=== PATIENT | female | born 1960 | race Caucasian/White ===

== ENCOUNTER → 2020-08-24 10:25 | Outpatient (CLI) | payer OTHER, SELFPAY ==
--- NOTE | ~2020-08-24 | CT_ITS ---
EXAMINATION: CT abdomen pelvis wo con EXAM DATE: 08/24/2020 10:43 INDICATION: K43.0 - Incisional hernia with obstruction, without gangrene . Tenderness head mass. Hype rtension. TECHNIQUE: Spiral CT of the abdomen and pelvis was performed without contrast. Axial, coronal and s agittal images of the abdomen and pelvis were reviewed. The dose-length product (DLP) for this exami nation was 1024.94 mGy-cm. The exposure was tailored according to patient size (auto mA exposure con trol), and iterative reconstruction (ASIR) was used as additional dose reduction technique. Compariso n is made to prior examination from 01/29/2017. FINDINGS: There is bilobulated left periumbilical hernia with the larger inferior lobulation having a defect in the abdominal wall measuring 2.8 cm, and lobulated portion measuring 9 cm in diameter, adam row mouth for size of herniated omental fat. The more cephalad lobulation measures about 5 cm. Mild f at stranding within this. Compared to 2017, size of these hernias has increased, and the edema/fat st randing has developed. The liver, spleen, adrenal glands and pancreas are unremarkable. Large gallstone measuring 2.4 x 5.3 cm. No adjacent pericholecystic inflammation. There is no nephrolithiasis or hydronephrosis. The uterus is anteverted and morphologically normal. The bladder is undistended at time of imaging. Th ere is no retroperitoneal or pelvic lymphadenopathy. There is mild scattered arteriosclerotic disea se. The appendix is normal. The stomach and small bowel are unremarkable. Small duodenal diverticulum. T here is expected amount of colonic stool. No free intraperitoneal gas. There is mild cardiomegaly . The lung bases are unremarkable. There are no osteoblastic or osteolytic lesions identified. L2-3 moderate to severe disc disease. IMPRESSION: 1. Sizable left periumbilical fat-containing bilobulated hernias with mild edema. 2. Cholelithiasis. Reviewed, dictated and finalized at location B. IMPRESSION: 1. Sizable left periumbilical fat-containing bilobulated hernias with mild sara ma. 2. Cholelithiasis.
== END ==
PROVIDERS: Visit Provider Surgery
DX: K43.0 Incisional hernia with obstruction, without gangrene (principal); K80.20 Calculus of gallbladder without cholecystitis without obstruction; K42.0 Umbilical hernia with obstruction, without gangrene
CPT/HCPCS: 74176

== ENCOUNTER → 2020-10-16 00:58 | Outpatient (CLI) | payer OTHER, SELFPAY ==
[2020-10-16 21:26] LABS: SARS-CoV-2 RNA PCR Negative
== END ==
PROVIDERS: Visit Provider Surgery
DX: Z01.812 Encounter for preprocedural laboratory examination (principal); Z20.822 Contact with and (suspected) exposure to COVID-19
CPT/HCPCS: C9803; U0003; U0005

== ENCOUNTER 2020-10-16 09:23 | Outpatient (CLI) | payer OTHER, SELFPAY ==
--- NOTE | 2020-10-16 09:31 | ECG_ITS ---
Measurements Intervals [place] Rate: 58 P: 75 NH: 164 QRS: 16 QRSD: 93 T: -9 QT: 436 QTc: 431 Interpretive Statements SINUS BRADYCARDIA BORDERLINE ST-T WAVE ABNORMALITY- DIFFUSE LEADS BASELINE WANDER- V4-V5 BORDERLINE ECG Electronically Signed On 10-16-2020 16:46:03 CDT by Ozzie Rodriguez D.O.
== END 2020-10-16 09:24 | disposition home or self-care (01) ==
PROVIDERS: Visit Provider Anesthesiology
DX: Z20.810 Contact with and (suspected) exposure to anthrax (principal); I10 Essential (primary) hypertension
CPT/HCPCS: 93005

== ENCOUNTER 2020-10-21 16:36 | Observation (INO) | payer OTHER, SELFPAY ==
[2020-10-15 17:10] VITALS: BMI 35.6
[2020-10-20] VITALS (18 sets, daily range): BP systolic 106–150; BP diastolic 58–86; PULSE 52–78; RESP 16–20; TEMP 36.2–37.2; O2SAT 91–100
--- NOTE | 2020-10-20 06:34 | PM.IMHP ---
H&P: HPI History of Present Illness Date/Time: 10/20/20 06:34 Chief Complaint: Recurrent ventral hernia Narrative: patient is a 60-year-old woman who had an umbilical hernia repaired with mesh in 2004 at [facility]. This recurred for at least the last 4 years. She has been seen in the office and had a recent CT scan. This shows a sizable ventral hernia with a 5 cm defect. It has been increasingly symptomatic for her and I was unable to reduce it in the office due to discomfort. She is taken to surgery now for laparoscopic repair of recurrent ventral hernia. Review of Systems Review of Systems: All systems reviewed & are unremarkable except as noted in HPI and below ( HPI and those items noted below.) Constitutional: Constitutional: Denies chills and Denies fever(s) Cardiovascular: Cardiovascular: Denies chest pain, Denies diaphoresis, Denies dyspnea and Denies paroxysmal nocturnal dyspnea Respiratory: Respiratory: Denies chest congestion, Denies cough and Denies dyspnea Integumentary/Breasts: Skin/Breast: Denies lesions and Denies rash PMFSH Past Medical History Medical History Brain bleed Hypertension Surgical History Surgical History H/O umbilical hernia repair S/P S/P excision of lipoma S/P knee replacement Family History Family History Father Diabetes mellitus Mother Macular degeneration Sibling Thyroid disease Grandparent Lung cancer Other Cerebrovascular accident Hypertension Social History Social History Smoking status: Never smoker Alcohol intake: never Substance use: never Living arrangements: with family Gender identity (if verbalized by the patient): Female Sexual Orientation (if Verbalized by the Patient): Straight or Heterosexual Spiritual care concerns: No Meds Home Medications and Allergies Home Medications Medication Instructions Recorded Confirmed Type diltiazem HCl 300 mg 300 mg PO DAILY 08/04/20 10/15/20 History capsule,extended release 24 hr Allergies Allergy/AdvReac Type Severity Reaction Status Date / Time Sulfa (Sulfonamide Allergy Severe REACTION Verified 09/06/20 09:00 Antibiotics) CHILD----SEVERE SWELLING AND RASH latex Allergy Intermediate rash Verified 09/06/20 09:00 sulfanilamide Allergy Mild Swelling Verified 09/06/20 09:00 Sulfonamides Allergy Intermediate anaphylaxis Uncoded 08/16/20 09:28 Exam Const: General: comfortable, no acute distress, alert and awake HENMT: Head: normocephalic and atraumatic Mouth: Yes Normal oral and palatal mucosa present Eyes: Conjunctivae: conjunctivae normal Pupils: Equal, round and reactive pupils present EOM: EOMs intact bilaterally Neck: Neck: normal visual inspection, no lymphadenopathy and nontender Resp: Effort & Inspection: normal respiratory effort Auscultation: clear to auscultation bilaterally Cardio: Rate: regular rate Rhythm: regular rhythm Heart sounds: no gallops, no murmurs and no rubs GI: Inspection: non-distended, incision ( Lower abdominal midline scar from ), obesity and visible herniation ( Just below umbilicus with most of the herniation to the left. Tender.) GI Palp: Yes Soft to palpation, No Tenderness to palpation present (GI), No Hepatomegaly present, No Splenomegaly present and Yes Hernia present ( tender ventral hernia, unable to reduce. Larger on the left than right) Auscultation: normal bowel sounds Skin: Lesions: no lesions Rashes: no rashes Neuro: General: no focal motor deficits and CN's II-XI intact bilaterally Cranial nerves: Yes Equal, round and reactive pupils present, Yes Bilaterally intact EOM present, Yes facial symmetry and Yes Midline tongue present Speech: normal speech Motor e
--- NOTE | 2020-10-20 06:40 | WPDHPUPDATE1 ---
History and Physical Update Update Date/Time: 10/20/20 06:40 History and Physical has been reviewed, including an updated exam of the patient. There are NO changes in the patient's condition. Risks, benefits, and alternatives have been discussed and questions answered. Patient agrees to proceed with procedure.
[2020-10-20] MEDS: ACETAMINOPHEN 500 MG TABLET 1000 MG PO (09:29)
[2020-10-20] MEDS: LACTATED RINGERS 1,000 ML 30 ML IV CONT ×2 (09:35→12:27)
--- NOTE | 2020-10-20 09:35 | WPDANESEPPF ---
Anes - Initial Pre Proc Eval Procedure: Operation Date: 10/20/20 10:00 Proposed Procedures p Laparoscopic Repair Recurrent Ventral Hernia - Ashvin Wu MD Date/Time: 10/20/20 09:35 Surgeon: Ashvin Wu MD Pre Op Diagnosis: recurrent vental hernia Patient Data Age: 60 Gender: F Height: 1.68 m Weight: 100 kg Allergies Allergy/AdvReac Type Severity Reaction Status Date / Time Sulfa (Sulfonamide Allergy Severe REACTION Verified 10/20/20 08:21 Antibiotics) CHILD----SEVERE SWELLING AND RASH sulfanilamide Allergy Mild Swelling Verified 10/20/20 08:21 latex AdvReac Intermediate BLISTERS Verified 10/20/20 08:21 UPON CONTACT Sulfonamides Allergy Intermediate anaphylaxis Uncoded 10/20/20 08:21 Home Medications Medication Instructions Recorded Confirmed Type diltiazem HCl 300 mg 300 mg PO DAILY 08/04/20 10/20/20 History capsule,extended release 24 hr Patient hx anesthesia problems: post op nausea/vomiting Family hx anesthesia problems: none PMFSH Past Medical History Medical History Anxiety Brain bleed Hypertension Rheumatoid arthritis Surgical History Surgical History H/O umbilical hernia repair S/P S/P excision of lipoma S/P knee replacement Family History Family History Father Diabetes mellitus Mother Macular degeneration Sibling Thyroid disease Grandparent Lung cancer Other Cerebrovascular accident Hypertension Social History Social History Smoking status: Never smoker Alcohol intake: never Substance use: never Living arrangements: with family Gender identity (if verbalized by the patient): Female Sexual Orientation (if Verbalized by the Patient): Straight or Heterosexual Spiritual care concerns: No Anes - Eval Final PreProcedure Day of Procedure 10/20/20 09:35 Patient weight: obese Heart: regular rate and rhythm Lungs: clear to auscultation Airway: Mallampati scale class II Neurological: alert and oriented Last oral intake: >/= 8 hours ASA classification: III Emergent: no Anesthetic plan: proceed Anesthesia type and monitoring: general ETT and standard monitoring Informed Consent: The patient's anesthetic plan and its attendant risks and benefits were discussed with the patient/family/POA. Questions were solicited and answers provided to the satisfaction of the patient/family/POA.
[2020-10-20] MEDS: KETOROLAC 15 MG/ML VIAL (*BKC) IV PUSH (09:36)
[2020-10-20] MEDS: SCOPOLAMINE 1.5 MG PATCH TRANSDERM (09:44)
[2020-10-20] MEDS: MIDAZOLAM HCL (*CRX) 2 MG/2 ML VIAL IV PUSH (09:50)
[2020-10-20] MEDS: ceFAZolin 2 GM/D5W 50 ML 2 GM/50 ML BAG IVPB (10:09)
[2020-10-20] MEDS: BUPIVACAINE/EPINEPHRINE 0.5% 10 ML VIAL 30 ML INFILTRATE (10:45)
--- NOTE | 2020-10-20 12:19 | W.PM.PROC2 ---
Procedure Note - Detailed Date of Procedure 10/20/20 Pre-op Diagnosis recurrent vental hernia Post-op Diagnosis same Procedure Performed Laparoscopic repair recurrent ventral hernia with 20 x 15 Symbotex mesh Surgeon Ashvin Wu MD Staff Therapist Marichuy QUINONES TEMPLATE MAKER, Isabel VIDALA Anesthesia general and local (0.5% Marcaine with epinephrine) Indications Patient had umbilical hernia repair in 2004 in an outside hospital. She has had a recurrence for quite some time, at least since 2017. This is gotten larger and more symptomatic. She is taken to surgery now for repair of a ventral hernia that is recurrent. Findings Omentum was chronically incarcerated in the hernia sac. The defect measured 5 cm in craniocaudad dimension and 3 cm in lateral dimension. 15 x 20 cm Symbotex mesh was used for repair oriented in the craniocaudad dimension. Description of Procedure The patient was taken to surgery and induced into general anesthesia. The abdomen was prepped and draped. First trocar was placed under the left costal margin laterally a. This was a 5 mm applied Medical optical trocar. Insufflation was carried out and the camera was placed. We then placed another 5 mm port in the left mid abdomen and a 10 11 port in the left lower quadrant. Later in the surgery 2 5 mm ports were placed on the right side of the abdomen. The hernia was easily found and had omentum stuck in the hernia defect. Using a combination of blunt sharp dissection as well as some cautery, I was able to reduce the herniated omentum completely. I then inserted a ruler and measured the defect with findings as above. We stopped insufflation and then marked the edges of the hernia using a needle and a marking pen. I then chose a 15 x 20 cm Symbotex mesh and placed this symmetrically over the defect marking the outer perimeter. I also marked the anticipated location of the 4 transfascial sutures. To 0 [place]-Angel suture was then used to make 4 transfascial sutures at the snf point along each side of the mesh. The mesh was then rolled and inserted into the abdominal cavity. It was unrolled and oriented appropriately. I then used the CardioKinetix suture pass device and passed the caudal transfascial suture 1st. The right lateral transfascial suture was next. The cranial transfascial suture and then finally the left lateral transfascial sutures were all placed. On checking the position, I did have to reposition the caudal transfascial suture. After this was done, the mesh looked to be in good position with no undue stress on the transfascial sutures. I tied down the sutures. I then used the secure strap stapling device to tack the mesh in position. These tacks are absorbable. It was at this point that we placed the 2 right-sided 5 mm ports under direct visualization. I tacked the mesh in position with a secure row that was closer to the hernia defect. An outer row near the edge of the mesh was then placed. The mesh lay quite flat and in good position. It appeared to have at least 5 cm overlap in all directions. I then suctioned away some blood that had collected in the pelvis from taking down the adhesions. All looked quite good. We closed the 10 11 port of the fascial level with an 0 Vicryl suture using the Mario cone and granny suture pass device. We evacuated CO2 and removed the trocar sleeves. Skin wounds were closed with subcuticular 4-0 Monocryl skin suture. The transfascial sutures sites work closed with Exofin adhesive. The trocar sites were dressed with Exofin adhesive. An abdominal binder was placed. The patient was awakened and taken to recovery in good condition. Sponge and needle counts were correct x2. Estimated Blood Loss 30 Drains No Packing No Pathology none sent Complications None Condition stable Disposition PACU
[2020-10-20] MEDS: ONDANSETRON INJ 4 MG/2 ML VIAL IV PUSH (12:50)
--- NOTE | 2020-10-20 13:55 | SUR.PHASEI ---
[id number]- Call to Dr. Haddad patient complaining of nausea and wretching at this time. Per Dr. Haddad place orders and administer 25MG Benadryl IVP.
[2020-10-20] MEDS: diphenhydrAMINE HCl INJ 50 MG/ML VIAL 25 MG IV PUSH (13:57)
[2020-10-20] MEDS: LACTATED RINGERS 1,000 ML 100 ML IV CONT (16:04)
[2020-10-20] MEDS: IBUPROFEN IV 800 MG/200 ML 800 MG/200 ML BAG 400 MG IVPB ×2 (16:05→21:32)
[2020-10-20] MEDS: SENNA/DOCUSATE SODIUM TABLET 2 TAB PO (20:15)
[2020-10-20] MEDS: ENOXAPARIN 30 MG/0.3 ML SYRINGE SUB-Q (20:15)
[2020-10-21] MEDS: HYDROcodone/acetaminophen (*CRX) 10-325 MG TABLET 1 TAB PO (00:42)
[2020-10-21] MEDS: MORPHINE SULFATE (*CRX) 2 MG/ML INJ IV PUSH (03:09)
[2020-10-21] MEDS: IBUPROFEN IV 800 MG/200 ML 800 MG/200 ML BAG 400 MG IVPB ×4 (04:00→20:57)
[2020-10-21 04:21] VITALS: BP 109/58; PULSE 68; RESP 16; TEMP 36.3; O2SAT 93
[2020-10-21 06:12] LABS: Hematocrit 27.2 % (37.0-47.0); Hemoglobin 9.3 g/dL (12.0-15.0); Mean Corpuscular HGB Conc 34.2 g/dl (32-36); Mean Corpuscular Hemoglobin 31.2 pg (26-34); Mean Corpuscular Volume 91.3 fl (80-100); Mean Platelet Volume 9.6 fl (7.4-10.4); Platelet Count Result 268 k/mm3 (150-375); Red Blood Count 2.98 M/mm3 (4.2-5.4); Red Cell Distribution Width 12.6 % (11.5-14.5); White Blood Count 14.3 K/mm3 (4.5-10.0)
[2020-10-21 06:22] LABS: Anion Gap 6 mmol/L (8-16); Blood Urea Nitrogen 16 mg/dL (7-17); Calcium 8.6 mg/dL (8.4-10.2); Carbon Dioxide 27 mmol/L (22-30); Chloride 102 mmol/L (98-107); Estimated CRCL calculation 62 ml/min; Estimated Glomerular Filt Rate 56; Glucose 151 mg/dL (65-110); Potassium 3.5 mmol/L (3.4-5.0); Sodium 135 mmol/L (137-145)
[2020-10-21] MEDS: ENOXAPARIN 30 MG/0.3 ML SYRINGE SUB-Q ×2 (08:35→20:54)
[2020-10-21] MEDS: polyethylene glycoL 3350 17 GM POWD.PACK PO (08:38)
[2020-10-21] MEDS: PHENOL/SOD PHENO SPRAY CHERRY (*BKC) 1 SPRAY MUCOUS MEM (10:13)
[2020-10-21 16:00] VITALS: BP 110/60; PULSE 66; RESP 16; TEMP 36.3; O2SAT 94
--- NOTE | 2020-10-21 16:23 | PM.PNGS ---
Progress Note: A&P Assessment and Plan (1) Recurrent ventral hernia with obstruction: Code(s): K43.0 - Incisional hernia with obstruction, without gangrene Status: Chronic Assessment and Plan: POD1 and doing well. Pain is well-controlled and she is tolerating a diet. She is still feeling weak and has not been up much. Will start increasing her activity and get her up and ambulating today. Hopefully, if she continues to improve, she could potentially be discharged tomorrow. (2) Hypertension: Qualifiers: Hypertension type: essential hypertension Qualified Code(s): I10 - Essential (primary) hypertension Code(s): I10 - Essential (primary) hypertension Status: Chronic Additional Plan I have discussed the plan of care with Dr. Wu. Subjective Subjective Date/Time Seen: 10/21/20 15:23 Post Op day: 1 Patient reports: tolerating a regular diet, flatus, no bowel movement and afebrile Interval history: Patient seen this afternoon lying in bed and doing well. She was sleeping upon entering and was easily arousable. She reports pain has been well-controlled all day, but also has not gotten out of bed since last night. She says she was a little unsteady when getting up to the chair last night and has rested all day today in bed. She is tolerating her diet. No other complaints at this time. Review of Systems Review of Systems: All systems reviewed & are unremarkable except as noted in HPI and below Constitutional: Constitutional: Reports as per HPI, Reports no additional constitutional complaints, Denies chills and Denies fever(s) Cardiovascular: Cardiovascular: Reports no additional cardiovascular complaints, Denies chest pain and Denies leg edema Respiratory: Respiratory: Reports no additional respiratory complaints, Denies cough and Denies dyspnea Gastrointestinal: Gastrointestinal: Reports as per HPI and Reports no additional gastrointestinal complaints Neurologic: Reports system reviewed and no additional complaints, except as documented, Denies Abnormal speech present and Denies focal weakness Exam Const: General: comfortable, no acute distress, alert and awake Orientation/consciousness: patient oriented x3 Resp: Effort & Inspection: normal respiratory effort Auscultation: clear to auscultation bilaterally Cardio: Rate: regular rate Rhythm: regular rhythm GI: Inspection: non-distended GI Palp: Yes Soft to palpation and Yes Tenderness to palpation present (GI) (incisional, very mild) Auscultation: Hypoactive bowel sounds present Other: Abdominal incisions clean and dry, glue intact. Most left lateral incision with some mild ecchymosis that appears stable. Skin: General skin exam: normal color Neuro: General: moves all extremities and no focal motor deficits Extrem: General: no clubbing, cyanosis or edema and no calf tenderness Psych: Mental Status: mental status grossly normal Insight: Good insight present (Psych) Judgement: Good judgement present (Psych) Objective Data Vital Signs Vital Signs: Vital Signs - 24 hr 10/20/20 16:56 10/20/20 20:09 10/20/20 23:50 Temperature 97.7 F 97.2 F L 97.7 F Pulse Rate 66 71 78 Respiratory Rate 16 18 17 Blood Pressure 126/58 L 121/67 128/66 Pulse Oximetry 98 97 91 10/21/20 04:21 Temperature 97.4 F L Pulse Rate 68 Respiratory Rate 16 Blood Pressure 109/58 L Pulse Oximetry 93 Intake/Output Intake/Output: Intake & Output 10/18/20 10/19/20 10/20/20 10/21/20 23:59 23:59 23:59 23:59 Intake Total 1250 1640 Balance 1250 1640 Meds/Results Medications: Active Medications Generic Name Dose Route Start Last Admin Trade Name Freq PRN Reason Stop Dose Admin Acetaminophen 500 mg 10/20/20 14:06 Acetaminophen 500 Mg Tablet PO Q6H PRN Mild Pain (1-3) or Fever Hydrocodone Bitart/Acetaminophen 1 tab 10/20/20 14:06 Hydrocodone/Acetaminophen (*Crx) 5-325 Mg Tablet PO Q4H PRN Pain Rated 4
[2020-10-21 20:50] VITALS: O2SAT 94
[2020-10-21 20:55] VITALS: BP 125/60; PULSE 69; RESP 18; TEMP 36.1; O2SAT 94
[2020-10-21] MEDS: SENNA/DOCUSATE SODIUM TABLET 2 TAB PO (20:55)
[2020-10-22] MEDS: HYDROcodone/acetaminophen (*CRX) 10-325 MG TABLET 1 TAB PO (00:44)
[2020-10-22] MEDS: IBUPROFEN IV 800 MG/200 ML 800 MG/200 ML BAG 400 MG IVPB ×2 (03:30→11:25)
[2020-10-22 05:36] VITALS: BP 128/64; PULSE 60; RESP 18; TEMP 36; O2SAT 94
--- NOTE | 2020-10-22 07:13 | PM.DS ---
DS: Admitting Diagnosis Admitting Diagnosis recurrent ventral hernia essential hypertension history of cerebral hemorrhage obesity DS: Discharge Diagnosis Discharge Diagnosis (1) Recurrent ventral hernia with obstruction: Code(s): K43.0 - Incisional hernia with obstruction, without gangrene Status: Chronic (2) Hypertension: Qualifiers: Hypertension type: essential hypertension Qualified Code(s): I10 - Essential (primary) hypertension Code(s): I10 - Essential (primary) hypertension Status: Chronic (3) BMI 37.0-37.9, adult: Code(s): Z68.37 - Body mass index [BMI] 37.0-37.9, adult Status: Chronic (4) History of cerebral hemorrhage: Code(s): Z86.79 - Personal history of other diseases of the circulatory system Status: Chronic DS: Summary Hospital Course Hospital Course: patient is a 60-year-old woman who had a previous umbilical hernia repair several years ago. She has developed a recurrence that has been present for at least 4 years. It had gotten larger and was symptomatic. She was taken to surgery on 10/20/2020. Laparoscopic repair of the recurrent ventral hernia with 20 x 15 cm Symbotex mesh was performed. The surgery went well. Following surgery she was observed both the night of surgery and postop day 1. Due to postoperative pain and some unsteadiness on her feet. She was doing well on postop day 2. She was comfortable on oral analgesics and able to be discharged in good condition. She will go home with an abdominal binder. Time Spent with Patient Time attestation: Total time spent providing and/or coordinating discharge services: Exam GI: Inspection: non-distended, incision ( Incisions all healing well. No seroma noted.) and obesity GI Palp: Yes Soft to palpation and Yes Tenderness to palpation present (GI) Auscultation: normal bowel sounds Discharge Plan Discharge Attending physician on discharge: Ashvin Wu Discharging Clinician: Ashvin Wu Anticipated Discharge Date/Time: 10/22/20 07:17 Patient Disposition: Home, Self-Care Activity: may shower, no straining and as tolerated Diet: as tolerated and regular Wound Care Instructions: incision open to air Discharge Instructions: Remove the Scopolamine patch that was placed behind your ear in 72 hours or less. Wash your hands after touching. Ambulate 3-4 x per day and as tolerated. No lifting over 15-20lbs. May bathe or shower. Stairs are OK. May drive a car in 3 days. Wear abdominal binder at all times other than when bathing or showering. Can take it off at bedtime as well. Stand Alone Forms: General Discharge Instructions Follow-up/Referrals: Ashvin Wu MD [Physician] - 2 Weeks Discharge Medications: New hydrocodone-acetaminophen 5-325 mg tablet 1 - 2 tablet PO Q6H PRN (Reason: pain) Qty: 15 RF: 0 sennosides-docusate sodium [Senokot-S] 8.6-50 mg Tablet 2 tab PO HS Qty: 10 RF: 0 ketorolac 10 mg tablet 10 mg PO Q6H 4 Days Qty: 16 RF: 0 polyethylene glycol 3350 [Miralax] 17 gram Powder In Packet 17 g PO QAM Qty: 30 RF: 0 Continued diltiazem HCl 300 mg capsule,extended release 24hr 300 mg PO DAILY RF: 0 Date of admission: 10/21/20 16:36 Primary Care Provider: PHYSICIAN,FLEXO FOLDER GLUER OPERATOR Admitting Provider: Ashvin Wu Attending physician on admission: Ashvin Wu Condition: Improved Quality VTE Prophylaxis VTE prophylaxis: pharmacologic ordered
[2020-10-22] MEDS: PHENOL/SOD PHENO SPRAY CHERRY (*BKC) 1 SPRAY MUCOUS MEM (08:54)
[2020-10-22] MEDS: polyethylene glycoL 3350 17 GM POWD.PACK PO (08:54)
[2020-10-22] MEDS: ENOXAPARIN 40 MG/0.4 ML SYRINGE SUB-Q (08:56)
[2020-10-22] MEDS: HYDROcodone/acetaminophen (*CRX) 5-325 MG TABLET 1 TAB PO (11:25)
== END 2020-10-22 12:57 | disposition home or self-care (01) ==
LOC: ANHSURGERY 17:13 → ANH3MED 17:13
PROVIDERS: Admitting Provider Surgery; Visit Provider Surgery
PROC: (CPT 49657; principal; 2020-10-20 10:00)
DX: K43.0 Incisional hernia with obstruction, without gangrene (principal); I10 Essential (primary) hypertension; M06.9 Rheumatoid arthritis, unspecified; F41.9 Anxiety disorder, unspecified; E66.9 Obesity, unspecified; Z68.36 Body mass index [BMI] 36.0-36.9, adult; Z86.79 Personal history of other diseases of the circulatory system
CPT/HCPCS: 49657; 36415; 80048; 85027; A9270; C1781; G0378; J0690; J1200; J1650; J1741; J1885; J2250; J2270; J2405; J3010; J7120

== ENCOUNTER 2022-05-29 11:18 | Emergency (ER) | payer SELFPAY ==
--- NOTE | ~2022-05-29 | XR_ITS ---
XR shoulder RT min 2V DATE: 05/29/2022 12:05 INDICATION: Fall today. Right shoulder and upper arm pain TECHNIQUE: AP and Neer views COMPARISON: None FINDINGS: There is a comminuted fracture the proximal right humerus including transverse surgical nec k fracture with mild medial displacement, with smooth oblique fracture through the proximal shaft of the humerus. Alignment is preserved at the acromioclavicular and glenohumeral joints. There is diffuse osteopenia. IMPRESSION: Comminuted fracture of right humerus including surgical neck and proximal shaft Reviewed, dictated and finalized at location B. IMPRESSION: Comminuted fracture of right humerus including surgical neck and pr oximal shaft
--- NOTE | ~2022-05-29 | XR_ITS ---
XR humerus RT DATE: 05/29/2022 12:07 INDICATION: Fall today. Right shoulder and arm pain TECHNIQUE: 2 views COMPARISON: None FINDINGS: There is a transverse fracture of the surgical neck of the right humerus and linear oblique fracture of the proximal to mid humeral shaft. There is mild medial displacement of the surgical nec k fracture. There is approximately 50% anterior displacement of the humeral shaft fracture. Alignment appears preserved at the acromion clavicular, glenohumeral and elbow joints. IMPRESSION: Comminuted fracture of right humerus including surgical neck and proximal to mid humeral shaft Reviewed, dictated and finalized at location B. IMPRESSION: Comminuted fracture of right humerus including surgical neck and pr oximal to mid humeral shaft
[2022-05-29 11:18] VITALS: BP 194/102; PULSE 70; RESP 18; TEMP 36.6; O2SAT 98
--- NOTE | 2022-05-29 11:38 | ED.FALL ---
HPI - Fall General Chief Complaint: Extremity Injury, Upper Stated Complaint: fall; right shoulder pain Time Seen by Provider: 05/29/22 11:32 Source: patient and RN notes reviewed Mode of arrival: ambulatory Limitations: no limitations History of Present Illness HPI Narrative: patient states that she tripped over the laundry basket at home. She ended up falling against the doorjamb with her right shoulder. Now she says she can not move it. EMS put her in a sling. complaint: fall Onset (ago): minute(s) (45) Fall from: standing Fall witnessed: no Place fall occurred: home Loss of consciousness: none Context: tripped/slipped Location of injury - extremities: Right: shoulder Severity: severe Quality: sharp, aching and throbbing Associated symptoms (after fall): denies Related Data Allergies Allergy/AdvReac Type Severity Reaction Status Date / Time Sulfa (Sulfonamide Allergy Severe REACTION Verified 05/29/22 11:35 Antibiotics) CHILD----SEVERE SWELLING AND RASH sulfanilamide Allergy Mild Swelling Verified 05/29/22 11:35 latex AdvReac Intermediate BLISTERS Verified 05/29/22 11:35 UPON CONTACT Sulfonamides Allergy Intermediate anaphylaxis Uncoded 10/20/20 08:21 Review of Systems Review of Systems: All systems reviewed & are unremarkable except as noted in HPI and below PMFSH Past Medical History Medical History (Updated 05/29/22 @ 12:38 by Claudio Sahu MD) Anxiety Brain bleed Cellulitis of leg (02/10/13) Hypertension Hypokalemia (02/10/13) Rheumatoid arthritis Surgical History Surgical History H/O umbilical hernia repair H/O ventral hernia repair 10/20/20 Laparoscopic repair recurrent ventral hernia with 20 x 15 Symbotex mesh S/P S/P excision of lipoma S/P knee replacement Family History Family History Father Diabetes mellitus Mother Macular degeneration Sibling Thyroid disease Grandparent Lung cancer Other Cerebrovascular accident Hypertension Social History Social History Alcohol intake: unknown Substance use: unknown Living arrangements: with family Occupation/Education: retired Gender identity (if verbalized by the patient): Female Sexual Orientation (if Verbalized by the Patient): Straight or Heterosexual Spiritual care concerns: No Exam Const: General: healthy appearing, no acute distress and alert Nutritional Appearance: well nourished Orientation/consciousness: patient oriented x3 Limitations: no limitations HENMT: Head: normal to inspection Ears: external ears normal Face/Nose/Sinus: Normal external nose present Face and sinus: normal facial exam Mouth: Yes moist mucous membranes Eyes: Conjunctivae: conjunctivae normal Pupils: Equal, round and reactive pupils present EOM: EOMs intact bilaterally Neck: Neck: normal visual inspection Resp: Effort & Inspection: normal respiratory effort Auscultation: clear to auscultation bilaterally Cardio: Rate: regular rate Rhythm: regular rhythm GI: GI Palp: Yes Soft to palpation and No Tenderness to palpation present (GI) Auscultation: normal bowel sounds Back/Spine/Pelvis: Cervical Spine: cervical ROM normal Thoracic/Lumbar Spine: thoraco-lumbar ROM normal Skin: General skin exam: normal color Rashes: no rashes Wounds: no wounds Neuro: General: patient oriented x3, moves all extremities, no focal motor deficits and CN's II-XI intact bilaterally Speech: normal speech Extrem: General: normal exam except as noted and no clubbing, cyanosis or edema Right upper extremity: shoulder/upper arm tenderness of the proximal humerus and of the mid-shaft humerus, axillary nerve sensory function normal, abnormal ROM held in an abnormal fashion in ADduction and in internal rotation, pain with active ROM in ABduction and
[2022-05-29] MEDS: HYDROmorphone HCL INJ (*CRX) 2 MG/ML VIAL 1 MG IM (12:12)
[2022-05-29] MEDS: ONDANSETRON HCL ODT 4 MG TABLET PO (12:49)
[2022-05-29 13:10] VITALS: BP 163/99; PULSE 67; RESP 18; O2SAT 98
--- NOTE | 2022-05-29 13:35 | PC.NURSE ---
+PMS POST SLING APPLICATION
== END 2022-05-29 13:10 | disposition home or self-care (01) ==
PROVIDERS: Emergency Provider Emergency Medicine
DX: S42.311A Greenstick fracture of shaft of humerus, right arm, initial encounter for closed fracture (principal); W01.198A Fall on same level from slipping, tripping and stumbling with subsequent striking against other object, initial encounter; Y92.009 Unspecified place in unspecified non-institutional (private) residence as the place of occurrence of the external cause
CPT/HCPCS: 73030; 73060; 99283; A4565; A9270; J1170

== ENCOUNTER 2022-06-05 08:35 | Outpatient (CLI) | payer SELFPAY ==
--- NOTE | ~2022-06-05 | XR_ITS ---
XR humerus RT DATE: 06/05/2022 09:04 INDICATION: Fall one week ago, right humeral fracture TECHNIQUE: AP and transthoracic views COMPARISON: 05/29/2022 right humerus FINDINGS: Again noted is a comminuted fracture of the right humerus including transverse surgical nec k fracture and fracture extending into the proximal to mid shaft of the humerus. There may be fractur e extending into the humeral head. There is up to 7 mm medial displacement, approximately 4 mm posterior displacement proximally to 2 cm posterior displacement distally at the fracture with approximately 11 degrees apex anterior angulati on. IMPRESSION: Comminuted humeral fracture including transverse surgical neck fracture, with fracture ex tending into the proximal submitted femoral shaft. Humeral head involvement is not excluded. Reviewed, dictated and finalized at location B. IMPRESSION: Comminuted humeral fracture including transverse surgical neck frac ture, with fracture extending into the proximal submitted femoral shaft. Domonique l head involvement is not excluded.
== END 2022-06-05 08:36 | disposition home or self-care (01) ==
LOC: CHSIMG 08:38
PROVIDERS: Visit Provider Orthopaedic Surgery
DX: S42.211A Unspecified displaced fracture of surgical neck of right humerus, initial encounter for closed fracture (principal); M25.511 Pain in right shoulder
CPT/HCPCS: 73060

== ENCOUNTER 2022-07-03 08:38 | Outpatient (CLI) | payer SELFPAY ==
--- NOTE | ~2022-07-03 | XR_ITS ---
EXAMINATION: XR humerus RT DATE: 07/03/2022 08:53 INDICATION: Right humerus fracture. TECHNIQUE: 2 views of right humerus on 3 radiographs were obtained. COMPARISON: Right humerus radiographs 06/05/2022, 05/29/2022 FINDINGS: There is a comminuted fractures involving right humeral diaphysis and surgical neck. The ma in distal fracture fragment demonstrates 12 mm medial displacement, impaction, and 19 degrees posteri or angulation. Some callus formation is noted. There is mild osteoarthritis of glenohumeral joint and acromioclavicular joint. IMPRESSION: 1. Healing comminuted fracture of right humerus. Reviewed, dictated and finalized at location A.
== END 2022-07-03 08:39 | disposition home or self-care (01) ==
LOC: CHSIMG 08:40
PROVIDERS: Visit Provider Orthopaedic Surgery
DX: S42.201D Unspecified fracture of upper end of right humerus, subsequent encounter for fracture with routine healing (principal)
CPT/HCPCS: 73060

== ENCOUNTER 2022-07-31 07:47 | Outpatient (CLI) | payer SELFPAY ==
--- NOTE | ~2022-07-31 | XR_ITS ---
XR humerus RT 07/31/2022 08:01 Indication: Follow-up right humerus fracture Procedure: 2 views right humerus Comparison: Comparison to multiple prior studies sequentially, with oldest reviewed study dated 05/29. Findings: The there is an oblique proximal humeral fracture with increasing displacement and varus an gulation. There is developing surrounding callus formation. Impression: 1: Proximal right humeral fracture with increasing displacement and varus angulation. Reviewed, dictated and finalized at location B. Impression: 1: Proximal right humeral fracture with increasing displacement and varus angul ation.
== END 2022-07-31 07:48 | disposition home or self-care (01) ==
LOC: CHSIMG 07:48
PROVIDERS: Visit Provider Orthopaedic Surgery
DX: S42.201A Unspecified fracture of upper end of right humerus, initial encounter for closed fracture (principal)
CPT/HCPCS: 73060

== ENCOUNTER 2022-08-28 17:46 | Inpatient (IN) | payer SELFPAY ==
--- NOTE | ~2022-08-28 | XR_ITS ---
XR chest 1V portable 09/01/2022 09:59 Indication: Cough Procedure: AP portable chest Comparison: No prior studies for comparison. Findings: Borderline heart size. No focal air space disease, pulmonary edema, pleural effusion or stephy pected pneumothorax. There is a displaced small right humeral fracture with angulation and callus for mation. Impression: 1: No acute cardiopulmonary disease. Reviewed, dictated and finalized at location [] Impression: 1: No acute cardiopulmonary disease.
--- NOTE | ~2022-08-28 | CT_ITS ---
CT of the Abdomen and Pelvis: Indication: Abdominal pain Technique: 2.5 mm axial scans were obtained through the abdomen and pelvis following intravenous adm inistration of 100 cc of Omnipaque 350. Dose reduction technique was used on this scan by utilizing a utomated exposure control and iterative reconstruction technique. The dose-length product (DLP) was 9 54.29 mGy-cm. COMPARISON: 08/24/2020 Findings: Scans through the lung bases are unremarkable. The liver, spleen, pancreas, adrenals and left kidney are within normal limits. There is stone or sma ll stones at the very distal right ureter with moderate right hydroureteronephrosis. There are additi onal small stones within the right renal collecting system. There is a very large gallstone measuring approximately 5 x 2.2 cm in size. No gallbladder wall thickening evident. No evidence of aortic aneu rysm. No lymphadenopathy. No bowel obstruction or bowel wall thickening. There is no evidence to suggest acute appendicitis. Sm all fat-containing abdominal hernia with minimal ascites within the hernia. Images through the pelvis were performed. Urinary bladder otherwise unremarkable. Small fat-containin g right femoral hernia present. No adnexal mass. Impression: Moderate right hydronephrosis with small stone or stones at the very distal right ureter. Additional small nonobstructing right renal stones. Cholelithiasis. Small fat-containing abdominal hernia. Reviewed, dictated and finalized at [facility]. Impression: Moderate right hydronephrosis with small stone or stones at the very distal rig ht ureter. Additional small nonobstructing right renal stones. Cholelithiasis. Small fat-containing abdominal hernia.
[2022-08-28 17:52] VITALS: BP 155/97; PULSE 85; RESP 17; TEMP 37.2; O2SAT 96
--- NOTE | 2022-08-28 17:53 | ED.NAVMDI ---
HPI - Nausea/Vomiting/Diarrhea General Chief complaint: Nausea/Vomiting/Diarrhea <Mauro Bess MD - Last Filed: 08/28/22 19:19> Stated complaint: N-V <Mauro Bess MD - Last Filed: 08/28/22 19:19> Time Seen by Provider: 08/28/22 17:51 <Mauro Bess MD - Last Filed: 08/28/22 19:19> Source: patient <Mauro Bess MD - Last Filed: 08/28/22 19:19> Mode of arrival: ambulatory <Mauro Bess MD - Last Filed: 08/28/22 19:19> Limitations: no limitations <Mauro Bess MD - Last Filed: 08/28/22 19:19> History of Present Illness HPI Narrative: 62-year-old female with a history of obesity, hypertension, intracranial hemorrhage, status post repair of umbilical hernia, status post knee surgery, status post recent right humerus fracture presents to the ER with a 4 day history of - nausea with multiple episodes of vomiting. Unable to keep anything down. - multiple episodes of diarrhea. No blood or mucus noted. - Diffuse diffuse abdominal pain no fever or chills. No recent antibiotics. History of and umbilical hernia repair <Mauro Bess MD - Last Filed: 08/28/22 19:19> MD elicited complaint: nausea, vomiting and diarrhea <Mauro Bess MD - Last Filed: 08/28/22 19:19> Pertinent past history: anorexia <Mauro Bess MD - Last Filed: 08/28/22 19:19> Onset (ago): day(s) ( started 4 days ago) <Mauro Bess MD - Last Filed: 08/28/22 19:19> Description of vomiting: watery <Mauro Bess MD - Last Filed: 08/28/22 19:19> Description of diarrhea: watery <Mauro Bess MD - Last Filed: 08/28/22 19:19> Associated nausea: Yes <Mauro Bess MD - Last Filed: 08/28/22 19:19> Associated abdominal pain: Yes <Mauro Bess MD - Last Filed: 08/28/22 19:19> Location of pain: diffuse <Mauro Bess MD - Last Filed: 08/28/22 19:19> Pain consistency: intermittent <Mauro Bess MD - Last Filed: 08/28/22 19:19> Severity: mild <Mauro Bess MD - Last Filed: 08/28/22 19:19> Quality: aching <Mauro Bess MD - Last Filed: 08/28/22 19:19> Exacerbating factors: none <Muaro Bess MD - Last Filed: 08/28/22 19:19> Relieving factors: none <Mauro Bess MD - Last Filed: 08/28/22 19:19> Associated symptoms: denies other symptoms <Mauro Bess MD - Last Filed: 08/28/22 19:19> Related Data Home medications: Home Medications Medication Instructions Recorded Confirmed No Home Medications 08/28/22 08/28/22 <Mauro Bess MD - Last Filed: 08/28/22 19:19> Allergies/Adverse reactions: Allergies Allergy/AdvReac Type Severity Reaction Status Date / Time Sulfa (Sulfonamide Allergy Severe REACTION Verified 08/28/22 17:51 Antibiotics) CHILD----SEVERE SWELLING AND RASH sulfanilamide Allergy Mild Swelling Verified 08/28/22 17:51 latex AdvReac Intermediate BLISTERS Verified 08/28/22 17:51 UPON CONTACT Sulfonamides Allergy Intermediate anaphylaxis Uncoded 08/28/22 17:51 <Mauro Bess MD - Last Filed: 08/28/22 19:19> Review of Systems Review of Systems: All systems reviewed & are unremarkable except as noted in HPI and below <Mauro Bess MD - Last Filed: 08/28/22 19:19> All systems reviewed & are unremarkable except as noted in HPI and below (HPI) <Yony James MD - Last Filed: 08/29/22 07:13> Constitutional: Constitutional: Reports no additional constitutional complaints <Mauro Bess MD - Last Filed: 08/28/22 19:19> Eyes: Eyes: Reports as per HPI and Reports no additional eye complaints <Mauro Bess MD - Last Filed: 08/28/22 19:19> ENT: Reports system reviewed and no additional complaints, except as documented and Reports as per HPI <Mauro Bess MD - Last Filed: 08/28/22 19:19> Cardiovascular: Cardiovascular: Rep
[2022-08-28] MEDS: LACTATED RINGERS 1,000 ML 999 ML IV CONT (18:14)
[2022-08-28] MEDS: ONDANSETRON INJ 4 MG/2 ML VIAL IV PUSH (18:15)
[2022-08-28 18:40] LABS: Basophils Absolute Auto 0.04 K/mm3 (0.00-0.10); Basophils Percent Auto 0.3 % (0.0-1.0); Eosinophils Absolute Auto 0.04 K/mm3 (0.02-0.50); Eosinophils Percent Auto 0.3 % (1.0-6.0); Hematocrit 32.5 % (35.0-49.0); Hemoglobin 11.7 g/dL (12.0-15.0); Immature Granulocyte Absolute 0.06 K/mm3 (0.00-0.00); Immature Granulocyte Percent A 0.4 % (0.0-0.0); Lymphocytes Absolute Auto 1.67 K/mm3 (1.10-4.50); Lymphocytes Percent Auto 12.3 % (18.0-42.0); Mean Corpuscular Hemoglobin 31.9 pg (27.0-31.0); Mean Corpuscular Volume 88.6 fL (78.0-102.0); Mean Platelet Volume 10.2 fl (9.2-11.8); Monocytes Absolute Auto 1.07 K/mm3 (0.10-0.90); Monocytes Percent Auto 7.9 % (2.0-11.0); Neutrophils Absolute Auto 10.7 K/mm3 (1.7-7.2); Neutrophils Percent Auto 78.8 % (50.0-70.0); Platelet Count Result 323 K/mm3 (150-420); Red Blood Count 3.67 M/mm3 (4.20-5.40); Red Cell Distribution Width 13.5 % (11.6-14.4); White Blood Count 13.6 K/mm3 (4.8-10.8)
[2022-08-28 18:56] LABS: INR 1.1; Partial Thromboplastin Time 23.5 SEC (23.90-30.70); Prothrombin Time 11.5 Seconds (9.50-12.10)
[2022-08-28 19:00] LABS: Lactic Acid Reflex 0.9 mmol/L (0.4-2.0)
[2022-08-28 19:06] LABS: Alanine Aminotransferase 10 U/L (14-59); Albumin Level 2.8 g/dL (3.4-5.0); Alkaline Phosphatase 121 U/L (46-116); Anion Gap 10 mmol/L (8-16); Aspartate Amino Transferase 15 U/L (15-37); Bilirubin,Total 1.5 mg/dL (0.00-1.00); Blood Urea Nitrogen 17 mg/dL (7-18); Calcium 8.5 mg/dL (8.5-10.1); Carbon Dioxide 36 mmol/L (21-32); Chloride 95 mmol/L (98-108); Estimated Glomerular Filt Rate 38; Glucose 159 mg/dL (70-99); Lipase 14 U/L (16-77); Osmolality Calculated 296 mOsm/kg (285-295); Sodium 141 mmol/L (136-145); Total Protein 6.9 g/dL (6.4-8.2); Troponin I 59.7 ng/L (0.00-60.4)
[2022-08-28 19:12] LABS: Potassium 1.7 mmol/L (3.5-5.1)
[2022-08-28 19:18] LABS: Appearance Urine Clear (Clear); Bilirubin Urine 1+ (Negative); Blood Urine 1+ (Negative); Color Urine Yellow (Yellow); Glucose Urine UA Negative (Negative); Ketones Urine Trace (Negative); Leukocyte Esterase Ur 3+ LEU/UL (Negative); Nitrate Urine Negative (Negative); Protein Urine 2+ (Negative); Specific Grav Ur 1.015 (1.010-1.020); Urobilinogen Urine 0.2 mg/dL (0.2-1.0); pH Urine 6.5 (5.0-8.0)
[2022-08-28 19:28] LABS: Add Urine Microscopic? YES
[2022-08-28 19:28] LABS: Magnesium 1.4 mg/dL (1.8-2.4)
[2022-08-28 19:29] LABS: Bacteria Urine Trace /hpf; Squamous Epithelial Cell Urine Rare /hpf (Few); WBC Urine >75 /hpf (0-3)
[2022-08-28] MEDS: KCL 20 MEQ/SW 100 ML 100 ML 50 MEQ IVPB ×2 (19:44→21:47)
[2022-08-28] MEDS: SPIRONOLACTONE 25 MG TABLET PO (19:44)
[2022-08-28] MEDS: POTASSIUM CHLORIDE 20 MEQ ER TABLET 40 MEQ PO (19:49)
[2022-08-28 20:00] VITALS: BP 160/92; PULSE 87; RESP 18; O2SAT 95
[2022-08-28] MEDS: LACTATED RINGERS 1,000 ML 150 ML IV CONT (20:56)
[2022-08-28 21:38] VITALS: BP 160/95; PULSE 84; RESP 18; O2SAT 95
[2022-08-28] MEDS: PANTOPRAZOLE SODIUM IV 40 MG VIAL IV PUSH (21:52)
[2022-08-28 22:30] VITALS: PULSE 72; RESP 18; TEMP 36.7; O2SAT 98
--- NOTE | 2022-08-28 22:47 | ADMGEN ---
This patient, Farida Markham, was admitted to 2nd Floor Room 226-2. Patient/family oriented to hospital policies and general routines including ID bracelet, bed and alarms, visiting hours, pain management, procedures, bathroom and other care routines, personal items, smoking policy, room service/diet, and visiting hours. Information on how to activate the Rapid Response Team has been discussed. Patient/Family are encouraged to report perceived risks to care and to ask questions if they do not understand what they are told or what they should do.
[2022-08-28 22:50] VITALS: BMI 30.6
[2022-08-29] VITALS (7 sets, daily range): BP systolic 158–182; BP diastolic 88–99; PULSE 72–97; RESP 18–20; TEMP 36.6–37.2; O2SAT 93–96
[2022-08-29] MEDS: LACTATED RINGERS 1,000 ML 150 ML IV CONT ×3 (00:10→15:46)
[2022-08-29] MEDS: ONDANSETRON INJ 4 MG/2 ML VIAL IV PUSH ×2 (05:33→15:45)
[2022-08-29 05:42] LABS: Basophils Absolute Auto 0.04 K/mm3 (0.00-0.10); Basophils Percent Auto 0.3 % (0.0-1.0); Eosinophils Absolute Auto 0.07 K/mm3 (0.02-0.50); Eosinophils Percent Auto 0.6 % (1.0-6.0); Hemoglobin 10.1 g/dL (12.0-15.0); Immature Granulocyte Absolute 0.06 K/mm3 (0.00-0.00); Immature Granulocyte Percent A 0.5 % (0.0-0.0); Lymphocytes Absolute Auto 2.07 K/mm3 (1.10-4.50); Lymphocytes Percent Auto 16.4 % (18.0-42.0); Mean Corpuscular HGB Conc 34.8 g/dL (32.0-36.0); Mean Corpuscular Hemoglobin 31.3 pg (27.0-31.0); Mean Corpuscular Volume 89.8 fL (78.0-102.0); Mean Platelet Volume 10.2 fl (9.2-11.8); Monocytes Percent Auto 8.7 % (2.0-11.0); Neutrophils Absolute Auto 9.3 K/mm3 (1.7-7.2); Neutrophils Percent Auto 73.5 % (50.0-70.0); Platelet Count Result 290 K/mm3 (150-420); Red Blood Count 3.23 M/mm3 (4.20-5.40); Red Cell Distribution Width 13.7 % (11.6-14.4); White Blood Count 12.6 K/mm3 (4.8-10.8)
[2022-08-29 06:29] LABS: Alanine Aminotransferase 10 U/L (14-59); Albumin Level 2.4 g/dL (3.4-5.0); Alkaline Phosphatase 105 U/L (46-116); Anion Gap 7 mmol/L (8-16); Aspartate Amino Transferase 13 U/L (15-37); Bilirubin,Total 1.2 mg/dL (0.00-1.00); Blood Urea Nitrogen 15 mg/dL (7-18); Calcium 8.2 mg/dL (8.5-10.1); Carbon Dioxide 36 mmol/L (21-32); Chloride 98 mmol/L (98-108); Estimated CRCL calculation 42 ml/min; Estimated Glomerular Filt Rate 40; Glucose 129 mg/dL (70-99); Osmolality Calculated 294 mOsm/kg (285-295); Sodium 141 mmol/L (136-145)
[2022-08-29 06:31] LABS: Potassium 1.9 mmol/L (3.5-5.1)
--- NOTE | 2022-08-29 07:07 | ECG_ITS ---
Measurements Intervals Maynard Rate: 63 P: CA: 0 QRS: 12 QRSD: 98 T: 14 QT: 453 QTc: 467 Interpretive Statements NORMAL SINUS RHYTHM WITH APCS NONSPECIFIC ST & T-WAVE ABNORMALITY ABNORMAL RHYTHM ECG COMPARED TO ECG 10/16/2020 09:36:01 NO SIGNIFICANT CHANGE Electronically Signed On 08-29-2022 18:22:52 CDT by Lily Elaine M.D.
--- NOTE | 2022-08-29 07:12 | PM.IMHP ---
H&P: HPI History of Present Illness Date/Time: 08/29/22 07:12 Chief Complaint: Nausea, vomiting, diarrhea for the last 4 days Narrative: Patient is a 62 year old female with a past medical history of CVA with brain bleed, hypertension, hypokalemia that presented to the ED with complaints of nausea, vomiting, diarrhea over the last 4 days. She stated that she has not been able to take anything in PO. She stated that when she would eat or drink it would just come back up. She did try some zofran, however, gain no relief. She stated that this happened about a week ago as well. She denies any recent antibiotic use. She is currently having some abdominal pain, that she stated is RUQ and epigastric area. Pain is sharp in nature and does not radiate anywhere. She has a positive hernandez's sign at this time. She denies any current chest pain, shortness of breath, constipation, fevers, sweats, chills, lightheadedness, dizziness, weakness. She does endorse fatigue and overall just feeling awful. Currently tele monitor appears to be very irregular, some beats appear to be a.fib. EKG is ordered and pending. K in the ED was 1.7, currently 1.9. 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 lipase negative at 14, T bili is elevated at 1.5 at admission currently 1.2, H/H 11.7/32.5, BUN/Cr slightly elevated at 17/1.38, currently 15/1.33, Mg upon admission is 1.4. WBC elevated at 13.6. UA does appear to be infectious. Patient is being admitted to the hospitalist service under observation Review of Systems Review of Systems: 12 systems review and are negative unless noted in the HPI [facility] Past Medical History Medical History (Updated 08/29/22 @ 09:06 by UNIQUE Medina) Anxiety BMI 37.0-37.9, adult Cellulitis of leg (02/10/13) Encounter for other specified surgical aftercare Fracture of humerus, proximal, right, closed Gastroenteritis History of cerebral hemorrhage Hypertension Hypokalemia (02/10/13) Osteoarthritis involving joints of upper arms, bilateral Prerenal renal failure Recurrent ventral hernia with obstruction Rheumatoid arthritis Surgical History Surgical History H/O umbilical hernia repair H/O ventral hernia repair 10/20/20 Laparoscopic repair recurrent ventral hernia with 20 x 15 Symbotex mesh S/P S/P excision of lipoma S/P knee replacement Family History Family History Father Diabetes mellitus Mother Macular degeneration Sibling Thyroid disease Grandparent Lung cancer Other Cerebrovascular accident Hypertension Social History Social History (Updated 08/29/22 @ 07:28 by UNIQUE Medina) Social History: Patient currently lives at home with family. She elects Michael her son to be her surrogate, and wants to be a full code. She does have 2 dogs at home. 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
[2022-08-29 07:26] LABS: Lipase 12 U/L (16-77)
[2022-08-29] MEDS: KCL 20 MEQ/SW 100 ML 100 ML 50 MEQ IVPB ×4 (07:49→18:20)
[2022-08-29 07:55] LABS: Hemoglobin A1C 5.5 % (<5.7)
[2022-08-29] MEDS: ENOXAPARIN 40 MG/0.4 ML SYRINGE SUB-Q (10:06)
[2022-08-29] MEDS: POTASSIUM CHLORIDE 20 MEQ ER TABLET 80 MEQ PO (11:56)
[2022-08-29] MEDS: MAGNESIUM SULF 4 GM/WATER100ML 4 GM/100 ML BAG IVPB (13:03)
[2022-08-29 13:19] LABS: Potassium 2.2 mmol/L (3.5-5.1)
--- NOTE | 2022-08-29 14:17 | PC.NURSE ---
Elvin Matamoros NP, notified of current Potassium level being 2.2 and patient is asking to be discharged.
--- NOTE | 2022-08-29 15:13 | PC.NURSE ---
Elvin Matamoros NP, updated on status. New orders received.
--- NOTE | 2022-08-29 16:00 | PC.NURSE ---
1430 patient cont take oral K+. claims it hangs up in throat and can not swallow has to take spilt pills. claims no K+ oral or iv works. claims off and on today that no one believes her that her K+ levels are always below 2. claims she has been hospitalized many times for this and her doctor knows and does not know how to fix. claims she wants to leave. multi times have explained to her that doctor will not dc her with levels like that can cause heart issues. have let kelley [employer] know wish to go. explained that she can go aMA. then starts talking how weak and sick she feels. sr on tele. have attempted to collect stool but no loose stools. did have a loose stool with urine mixed in now. bladder scanned with 10ml residual. was refusing to let lab draw any furthor labs. wants to know when anyone will tell her what to expect. explained again about taking oral K+ and iv . claims it kapadia to bad and nothing works and has been proven in past. claims though she has no doctor now and can not recall the name of any doctor that knows about K+ always below 3. claims she has hospital ized multi times for this but can not recall any of the hospital names.
[2022-08-29] MEDS: POTASSIUM CHLORIDE 20 MEQ PACKET (FOR LIQUID) 80 MEQ PO (16:15)
[2022-08-29] MEDS: LORazepam INJ (*CRX) 2 MG/ML VIAL 0.5 MG IV PUSH (16:17)
[2022-08-29] MEDS: hydrALAZINE HCL 20 MG/ML VIAL 10 MG IV PUSH (18:16)
[2022-08-29] MEDS: FUROSEMIDE INJ 40 MG/4 ML VIAL IV PUSH (18:18)
--- NOTE | 2022-08-29 20:45 | PC.NURSE ---
Upon entering pt room for assessment, pt is in bed drowsy but awakens easily, She has urine saturated sheets and gown and urine noted on floor. Pt states she awoke earlier and had to use BR and couldn;'t wait. She assisted herself to BSC and back to bed, did not ring or call for assist. Pt changed into dry gown and sheets/linens. Pt encouraged and educated on need to call for assist, pt is weak and not highly motivated to learn education presented. She keeps repeating that she just has no appetite and doewsn't feel well but is asking for her chocolate shake she ordered at dinner tonight. Pt given her shake and she ate approx 1/2 of it, went back to bed. Call light at pt side and she is reinstructed to use for assistance and repeats understanding.
[2022-08-29] MEDS: traZODone HCL 25 MG TABLET PO (20:57)
[2022-08-30] VITALS (8 sets, daily range): BP systolic 135–159; BP diastolic 77–87; PULSE 68–88; RESP 16–18; TEMP 36.4–37.1; O2SAT 94–96
[2022-08-30 05:35] LABS: Basophils Absolute Auto 0.03 K/mm3 (0.00-0.10); Basophils Percent Auto 0.2 % (0.0-1.0); Eosinophils Absolute Auto 0.02 K/mm3 (0.02-0.50); Eosinophils Percent Auto 0.1 % (1.0-6.0); Hematocrit 31.1 % (35.0-49.0); Immature Granulocyte Absolute 0.25 K/mm3 (0.00-0.00); Immature Granulocyte Percent A 1.7 % (0.0-0.0); Lymphocytes Absolute Auto 1.37 K/mm3 (1.10-4.50); Lymphocytes Percent Auto 9.5 % (18.0-42.0); Mean Corpuscular HGB Conc 35.4 g/dL (32.0-36.0); Mean Corpuscular Hemoglobin 31.9 pg (27.0-31.0); Mean Corpuscular Volume 90.1 fL (78.0-102.0); Mean Platelet Volume 9.8 fl (9.2-11.8); Monocytes Absolute Auto 1.04 K/mm3 (0.10-0.90); Monocytes Percent Auto 7.2 % (2.0-11.0); Neutrophils Absolute Auto 11.8 K/mm3 (1.7-7.2); Neutrophils Percent Auto 81.3 % (50.0-70.0); Platelet Count Result 331 K/mm3 (150-420); Red Blood Count 3.45 M/mm3 (4.20-5.40); Red Cell Distribution Width 13.9 % (11.6-14.4); White Blood Count 14.5 K/mm3 (4.8-10.8)
[2022-08-30 05:55] LABS: Alanine Aminotransferase 9 U/L (14-59); Albumin Level 2.5 g/dL (3.4-5.0); Alkaline Phosphatase 117 U/L (46-116); Anion Gap 5 mmol/L (8-16); Aspartate Amino Transferase 12 U/L (15-37); Bilirubin,Total 1.1 mg/dL (0.00-1.00); Blood Urea Nitrogen 12 mg/dL (7-18); Calcium 8.3 mg/dL (8.5-10.1); Carbon Dioxide 38 mmol/L (21-32); Chloride 97 mmol/L (98-108); Creatine Kinase 21 U/L (26-192); Estimated CRCL calculation 37 ml/min; Estimated Glomerular Filt Rate 35; Glucose 135 mg/dL (70-99); Lactate Dehydrogenase 169 U/L (81-234); Magnesium 1.8 mg/dL (1.8-2.4); Osmolality Calculated 291 mOsm/kg (285-295); Sodium 140 mmol/L (136-145); Total Protein 6.3 g/dL (6.4-8.2)
[2022-08-30 06:09] LABS: Potassium 2.1 mmol/L (3.5-5.1)
--- NOTE | 2022-08-30 06:10 | PC.NURSE ---
Order for blood potassium level to be drawn one hour after all the potassium is infused.
[2022-08-30] MEDS: POTASSIUM CHLORIDE 20 MEQ ER TABLET 80 MEQ PO (06:55)
[2022-08-30] MEDS: SODIUM CHLORIDE 0.9% IV 1,000 ML 100 ML (08:29)
[2022-08-30] MEDS: KCL 20 MEQ/SW 100 ML 100 ML 50 MEQ IVPB ×4 (08:29→15:56)
[2022-08-30] MEDS: ACETAMINOPHEN 325 MG TABLET 650 MG PO (08:40)
--- NOTE | 2022-08-30 11:05 | WPDPN ---
Progress Note: A&P Assessment and Plan (1) Cholelithiasis: Code(s): K80.20 - Calculus of gallbladder without cholecystitis without obstruction Status: Acute Assessment and Plan: no compliants of pain (2) Arrhythmia: Qualifiers: Arrhythmia type: other cardiac arrhythmia Qualified Code(s): I49.8 - Other specified cardiac arrhythmias Code(s): I49.9 - Cardiac arrhythmia, unspecified Status: Acute Assessment and Plan: continue on Tele monitor replenish Electrolytes (3) Acute kidney failure: Qualifiers: Acute renal failure type: unspecified Qualified Code(s): N17.9 - Acute kidney failure, unspecified Code(s): N17.9 - Acute kidney failure, unspecified Status: Acute Assessment and Plan: monitor intake and output avoid nephrotoxic medication (4) Acute hypokalemia: Code(s): E87.6 - Hypokalemia Status: Acute Assessment and Plan: replenish electrolyte IV potassium pt refuses oral replenish magnesium monitor Tele K1.6..2.2 recheck levels after 4th IV potassium 1 hour afterwards (5) Nausea vomiting and diarrhea: Code(s): R11.2 - Nausea with vomiting, unspecified; R19.7 - Diarrhea, unspecified Status: Acute Assessment and Plan: IV Zofran resolved (6) Hypertension: Qualifiers: Hypertension type: essential hypertension Qualified Code(s): I10 - Essential (primary) hypertension Code(s): I10 - Essential (primary) hypertension Status: Chronic Assessment and Plan: continue on home medication Make sure to monitor bp adjust as needed. Subjective Date/time seen: 08/30/22 11:05 Interval history: Patient is wanting to go home I have instructed her that she would have to leave [facility] as I was not going to discharge her. I had a discussion with patient to see if she has seen GI since she has so many stomach issues and low potassium patient states she has not had a colonoscopy and she is not going to. Patient states she does not feel well but she has living to do. Patient informs me that her PCP knows she is low on Potassium but does not know who her PCP is or she does not have one. Patient has had no vomiting noted and she is eating and drinking without difficulties. Patient Cr is high today we will continue to monitor . IV Potassium is being given Exam Const: General: healthy appearing, alert, awake and obese Orientation/consciousness: oriented to person, oriented to place, oriented to time and patient oriented x3 HENMT: Head: normal to inspection Ears: hearing grossly normal bilaterally Face and sinus: normal facial exam Throat: posterior oropharynx normal Neck: Neck: normal visual inspection Chest: Chest palpation & inspection: normal inspection of the chest Resp: Effort & Inspection: normal respiratory effort and able to speak in complete sentences Auscultation: clear to auscultation bilaterally Cardio: Rhythm: abnormal rhythm GI: Inspection: normal to inspection : OB/external & speculum: Deferred OB/external & speculum exam Manual OB Exam: Deferred manual OB exam Back/Spine/Pelvis: Back: no CVA tenderness Skin: General skin exam: normal color Neuro: General: oriented to person, oriented to time and patient oriented x3 Extrem: General: normal to inspection, full ROM and capillary refill normal Psych: Appearance: disheveled Speech and movement: Normal speech and movement present and Clear speech present Affect: Indifferent affect present Attitude: Guarded attititude/behavior present Thought process: Illogical thought process present Insight: Fair insight present (Psych) Judgement: Fair judgement present (Psych) Objective Data Vital Signs Vital Signs: Vital Signs - 24 hr 08/29/22 16:00 08/29/22 16:00 08/29/22 12:00 Temperature 98.6 F Pulse Rate 73 73 80 Respiratory Rate 20 Blood Pressure 182/99 H Pulse Oximetry 93 Oxygen
[2022-08-30 20:48] LABS: Potassium 2.7 mmol/L (3.5-5.1)
[2022-08-31 03:24] VITALS: PULSE 73
[2022-08-31 08:00] VITALS: BP 167/84; PULSE 62; PULSE 67; RESP 14; TEMP 36.4; O2SAT 96
[2022-08-31] MEDS: KCL 20 MEQ/SW 100 ML 100 ML 50 MEQ IVPB ×3 (09:58→19:31)
[2022-08-31] MEDS: SODIUM CHLORIDE 0.9% IV 1,000 ML 100 ML ×2 (10:00→14:10)
[2022-08-31] MEDS: ENOXAPARIN 40 MG/0.4 ML SYRINGE SUB-Q (10:01)
[2022-08-31] MEDS: LOPERAMIDE HCL 2 MG CAPSULE PO ×2 (10:45→21:21)
[2022-08-31] MEDS: LORazepam (*CRX) 0.5 MG TABLET PO (10:46)
[2022-08-31 12:00] VITALS: PULSE 78
[2022-08-31] MEDS: POTASSIUM CHLORIDE 20 MEQ ER TABLET 40 MEQ PO (12:25)
[2022-08-31 12:26] LABS: Hemoglobin 10.4 g/dL (12.0-15.0); Mean Corpuscular HGB Conc 33.5 g/dL (32.0-36.0); Mean Corpuscular Hemoglobin 30.9 pg (27.0-31.0); Mean Platelet Volume 9.9 fl (9.2-11.8); Platelet Count Result 324 K/mm3 (150-420); Red Blood Count 3.37 M/mm3 (4.20-5.40); Red Cell Distribution Width 13.9 % (11.6-14.4); White Blood Count 11.8 K/mm3 (4.8-10.8)
[2022-08-31 12:37] LABS: Anion Gap 4 mmol/L (8-16); Blood Urea Nitrogen 12 mg/dL (7-18); Calcium 8.2 mg/dL (8.5-10.1); Carbon Dioxide 37 mmol/L (21-32); Chloride 96 mmol/L (98-108); Estimated CRCL calculation 42 ml/min; Estimated Glomerular Filt Rate 39; Glucose 158 mg/dL (70-99); Osmolality Calculated 286 mOsm/kg (285-295); Sodium 137 mmol/L (136-145)
[2022-08-31 12:38] LABS: Potassium 2.4 mmol/L (3.5-5.1)
[2022-08-31 13:11] LABS: Potassium Urine Random 20.8 mmol/L (12-62)
[2022-08-31 13:20] LABS: NT Pro B Type Natriuretic Pept 1370 pg/mL (0-125)
--- NOTE | 2022-08-31 13:55 | PM.IMPN ---
Progress Note: A&P Assessment and Plan (1) Cholelithiasis: Code(s): K80.20 - Calculus of gallbladder without cholecystitis without obstruction Status: Acute Assessment and Plan: no compliants of pain (2) Arrhythmia: Qualifiers: Arrhythmia type: other cardiac arrhythmia Qualified Code(s): I49.8 - Other specified cardiac arrhythmias Code(s): I49.9 - Cardiac arrhythmia, unspecified Status: Acute Assessment and Plan: continue on Tele monitor replenish Electrolytes (3) Acute kidney failure: Qualifiers: Acute renal failure type: unspecified Qualified Code(s): N17.9 - Acute kidney failure, unspecified Code(s): N17.9 - Acute kidney failure, unspecified Status: Acute Assessment and Plan: monitor intake and output avoid nephrotoxic medication (4) Acute hypokalemia: Code(s): E87.6 - Hypokalemia Status: Acute Assessment and Plan: replenish electrolyte IV potassium pt refuses oral replenish magnesium monitor Tele K1.6..2.2..2.7..2.4 recheck levels after 4th IV potassium 1 hour afterwards Random Urine Protein 20 (5) Nausea vomiting and diarrhea: Code(s): R11.2 - Nausea with vomiting, unspecified; R19.7 - Diarrhea, unspecified Status: Acute Assessment and Plan: IV Zofran resolved (6) Hypertension: Qualifiers: Hypertension type: essential hypertension Qualified Code(s): I10 - Essential (primary) hypertension Code(s): I10 - Essential (primary) hypertension Status: Chronic Assessment and Plan: continue on home medication Make sure to monitor bp adjust as needed. Plan Replenish Magnesium Call place to Steam Cleaning Machine Operator to return phone call Discussion with patient and her son and daughter on plan of care andpatient taking care of herself and what she would like to do. Patient is wanting to go home at this time she would need to leave AMA once her levels go to 3.0 we will plan on discharge. Subjective Date/time seen: 08/31/22 13:55 Interval history: today's to take patient's potassium continues to remain low currently at 2.4 had have a long discussion with patient to allow for labs to be drawn the 2.4 was after oral potassium and some more IV potassium. I did have a random urine potassium sent off I did call patient's daughter had a discussion about her mother's health and about our long conversation with patient about compliance. High have some concerns whether patient is having some confusion or she is just being a little difficult. After the discussion patient informed me she has a deputy jailer in which I did call Dr. Jimenez left message for them to return the phone call back as recommendations would be appreciated today we will stop patient's IV Rocephin I will give her an additional dose of magnesium today as well as 2 were beds of IV potassium we will recheck labs in the morning patient's creatinine currently is 1.35 BUN is 12 sodium is 137 urine is pending patient is able to eat and drink there was no diarrhea noted today although patient seems to be obsessed with stating that she is having diarrhea although I did not see any Imodium was ordered p.r.n. for patient Patient is wanting to go home I have instructed her that she would have to leave AMA as I was not going to discharge her. I had a discussion with patient to see if she has seen GI since she has so many stomach issues and low potassium patient states she has not had a colonoscopy and she is not going to. Patient states she does not feel well but she has living to do. Patient informs me that her PCP knows she is low on Potassium but does not know who her PCP is or she does not have one. Patient has had no vomiting noted and she is eating and drinking without difficulties. Patient Cr is high today we will continue to monitor . IV Potassium is being given Exam Const: General: healthy james
[2022-08-31] MEDS: FUROSEMIDE 20 MG TABLET PO (15:02)
[2022-08-31 16:35] VITALS: BP 173/88; PULSE 75; PULSE 84; RESP 16; TEMP 36.3; O2SAT 96
[2022-08-31] MEDS: MAGNESIUM SULF 4 GM/WATER100ML 4 GM/100 ML BAG IVPB (18:25)
[2022-08-31 20:00] VITALS: PULSE 75; PULSE 79; RESP 16; O2SAT 96
[2022-08-31] MEDS: ONDANSETRON INJ 4 MG/2 ML VIAL IV PUSH (21:23)
[2022-09-01] VITALS (8 sets, daily range): BP systolic 133–145; BP diastolic 78–85; PULSE 66–89; RESP 16–18; TEMP 36.2–37; O2SAT 94–96
[2022-09-01] MEDS: ACETAMINOPHEN 325 MG TABLET 650 MG PO (05:11)
--- NOTE | 2022-09-01 05:15 | PC.NURSE ---
Unable to obtain lab draw through peripheral IV, pt had been refusing to allow lab to use hands for blood draws, after encouraging/education pt did allow lab draw from hand. Awaiting lab results.
[2022-09-01 05:39] LABS: Hematocrit 32.7 % (35.0-49.0); Mean Corpuscular HGB Conc 33.6 g/dL (32.0-36.0); Mean Corpuscular Hemoglobin 31.1 pg (27.0-31.0); Mean Corpuscular Volume 92.4 fL (78.0-102.0); Mean Platelet Volume 9.8 fl (9.2-11.8); Platelet Count Result 355 K/mm3 (150-420); Red Blood Count 3.54 M/mm3 (4.20-5.40); Red Cell Distribution Width 13.6 % (11.6-14.4); White Blood Count 12.1 K/mm3 (4.8-10.8)
[2022-09-01 05:48] LABS: Anion Gap 4 mmol/L (8-16); Blood Urea Nitrogen 10 mg/dL (7-18); Calcium 8.5 mg/dL (8.5-10.1); Carbon Dioxide 36 mmol/L (21-32); Chloride 97 mmol/L (98-108); Estimated CRCL calculation 43 ml/min; Estimated Glomerular Filt Rate 41; Glucose 112 mg/dL (70-99); Osmolality Calculated 284 mOsm/kg (285-295); Sodium 137 mmol/L (136-145)
[2022-09-01 05:50] LABS: Potassium 2.5 mmol/L (3.5-5.1)
[2022-09-01 05:51] LABS: Magnesium 2.4 mg/dL (1.8-2.4)
[2022-09-01] MEDS: KCL 20 MEQ/SW 100 ML 100 ML 50 MEQ IVPB (06:32)
[2022-09-01] MEDS: LORazepam (*CRX) 0.5 MG TABLET PO (06:33)
[2022-09-01 09:34] LABS: Hemoglobin A1C 5.9 % (<5.7)
[2022-09-01 09:38] LABS: Magnesium 2.5 mg/dL (1.8-2.4)
[2022-09-01 09:39] LABS: Phosphorus 3.4 mg/dL (2.6-4.7)
[2022-09-01 09:44] LABS: Thyroid Stimulating Hormone Reflex 0.38 u/IU/mL (0.36-3.74)
[2022-09-01] MEDS: LOPERAMIDE HCL 2 MG CAPSULE PO (10:10)
[2022-09-01] MEDS: KCL 40 MEQ/0.9% SOD CHL 1,000 ML 100 ML IV CONT ×2 (10:39→20:51)
[2022-09-01] MEDS: PANTOPRAZOLE SODIUM IV 40 MG VIAL IV PUSH (12:15)
--- NOTE | 2022-09-01 12:17 | WPDPN ---
Progress Note: A&P Assessment and Plan (1) Acute hypokalemia: Code(s): E87.6 - Hypokalemia Status: Acute Assessment and Plan: replenish electrolyte IV potassium pt refuses oral replenish magnesium monitor Tele K1.6..2.2..2.7..2.4..2.5 recheck levels after 4th IV potassium 1 hour afterwards Random Urine Protein 20 Normal Saline w 40 MEQ @ 100ml/day (2) Nausea vomiting and diarrhea: Code(s): R11.2 - Nausea with vomiting, unspecified; R19.7 - Diarrhea, unspecified Status: Acute Assessment and Plan: IV Zofran resolved IV Protonix (3) Hypertension: Qualifiers: Hypertension type: essential hypertension Qualified Code(s): I10 - Essential (primary) hypertension Code(s): I10 - Essential (primary) hypertension Status: Chronic Assessment and Plan: continue on home medication Make sure to monitor bp adjust as needed. Plan Replenish Magnesium 2.5 today still awaiting call back from patient's distillery supervisor called them again today.Call place to Divider Operator to return phone call Discussion with patient and her son and daughter on plan of care andpatient taking care of herself and what she would like to do. Patient is wanting to go home at this time she would need to leave AMA once her levels go to 3.0 we will plan on discharge. Subjective Date/time seen: 09/01/22 12:18 Interval history: patient's potassium currently is 2.5 currently patient's magnesium is 3.5 I did a TSH which is within normal limits today check patient's phosphorus which is a normal limits today patient's hemoglobin A1c is 5.9 yesterday did and random urine potassium which was 20 which is normal. I did call patient's urologist left 2 messages for her to give a call back spoke with For our yesterday discussed patient's condition the goal is to get patient to 3.0 before we send her home held on discussion today with patient about taking the oral potassium were attempting to do 10 mEq of oral potassium 4 times a day as she states she can only take 1 a day discontinue patient's Lovenox as she is refusing to have a completed discussed that we are giving it to her for blood clots to prevent them but she does not want them she is in the crying wants leave against medical advice but states that she is not able to due to her kids. IV Protonix has been ordered for patient patient's urine shows Proteus so we will continue IV Rocephin for few more days otherwise she could go home on oral antibiotics she has had 4 day of IV Rocephin we will continue this medication patient is alert and oriented I did order her some oral Ativan as she states she is stressed and nervous because she wants to go home patient's daughter has her antibody and her daughter states there was no need for her to have to go home today 08/31/22 today's to take patient's potassium continues to remain low currently at 2.4 had have a long discussion with patient to allow for labs to be drawn the 2.4 was after oral potassium and some more IV potassium. I did have a random urine potassium sent off I did call patient's daughter had a discussion about her mother's health and about our long conversation with patient about compliance. High have some concerns whether patient is having some confusion or she is just being a little difficult. After the discussion patient informed me she has a distillery supervisor in which I did call Dr. Jimenez left message for them to return the phone call back as recommendations would be appreciated today we will stop patient's IV Rocephin I will give her an additional dose of magnesium today as well as 2 were beds of IV potassium we will recheck labs in the morning patient's creatinine currently is 1.35 BUN is 12 sodium is 137 urine is pending patient is able to eat and drink there was no diarrhea noted today although patient seems to be obsessed with stating that she is having diarrhea although I did not see any Imodium
[2022-09-01] MEDS: POTASSIUM CHLORIDE 10 MEQ ER TABLET PO ×3 (13:12→20:50)
[2022-09-01] MEDS: traZODone HCL 25 MG TABLET PO (20:50)
[2022-09-02 03:58] VITALS: PULSE 72
[2022-09-02 05:07] LABS: Hematocrit 29.7 % (35.0-49.0); Hemoglobin 9.8 g/dL (12.0-15.0); Mean Platelet Volume 9.6 fl (9.2-11.8); Platelet Count Result 346 K/mm3 (150-420); Red Blood Count 3.16 M/mm3 (4.20-5.40); Red Cell Distribution Width 13.6 % (11.6-14.4); White Blood Count 9.1 K/mm3 (4.8-10.8)
[2022-09-02] MEDS: LOPERAMIDE HCL 2 MG CAPSULE PO (05:14)
[2022-09-02 05:17] LABS: Anion Gap 4 mmol/L (8-16); Blood Urea Nitrogen 7 mg/dL (7-18); Calcium 7.9 mg/dL (8.5-10.1); Carbon Dioxide 34 mmol/L (21-32); Chloride 104 mmol/L (98-108); Estimated CRCL calculation 52 ml/min; Estimated Glomerular Filt Rate 51; Glucose 102 mg/dL (70-99); Osmolality Calculated 292 mOsm/kg (285-295); Potassium 3.2 mmol/L (3.5-5.1); Sodium 142 mmol/L (136-145)
[2022-09-02] MEDS: KCL 40 MEQ/0.9% SOD CHL 1,000 ML 100 ML IV CONT (06:47)
[2022-09-02 08:00] VITALS: BP 143/86; PULSE 68; PULSE 71; RESP 16; TEMP 36.4; O2SAT 97
[2022-09-02] MEDS: PANTOPRAZOLE SODIUM IV 40 MG VIAL IV PUSH (08:04)
[2022-09-02] MEDS: POTASSIUM CHLORIDE 10 MEQ ER TABLET PO (08:04)
--- NOTE | 2022-09-02 09:15 | PM.DS ---
DS: Admitting Diagnosis Discharge Date 09/02/2022 Admitting Diagnosis Hypokalemia Acute Renal Failure Diarrhea Urinary Tract Infection Hypokalemia DS: Discharge Diagnosis Discharge Diagnosis (1) Acute hypokalemia: Code(s): E87.6 - Hypokalemia Status: Acute Assessment and Plan: - Increased to 3.2 today. - Continue supplemental at home of 10 mEq daily - Check BMP in three days. - Refer to a PCP for follow up and further management. (2) Nausea vomiting and diarrhea: Code(s): R11.2 - Nausea with vomiting, unspecified; R19.7 - Diarrhea, unspecified Status: Resolved Assessment and Plan: - Resolved. No further N/V/D. (3) Hypertension: Qualifiers: Hypertension type: essential hypertension Qualified Code(s): I10 - Essential (primary) hypertension Code(s): I10 - Essential (primary) hypertension Status: Chronic Assessment and Plan: - Pt. takes no home medication and states she does not have a PCP. - Will educate pt on checking BP at home and keeping a diary to take to her new patient appointment with referred physician. - 143/86 on discharge. - Low salt, heart healthy diet. (4) Urinary tract infection: Qualifiers: Urinary tract infection type: site unspecified Hematuria presence: without hematuria Qualified Code(s): N39.0 - Urinary tract infection, site not specified Code(s): N39.0 - Urinary tract infection, site not specified Status: Acute Assessment and Plan: - UA with growth of Proteus. - Cipro 500 mg po for 5 days at home. (5) Ureterolithiasis: Code(s): N20.1 - Calculus of ureter Status: Acute Assessment and Plan: - Continue Flomax - Most likely reason for UTI. - Follow up to be performed with PCP. DS: Summary Hospital Course Reason for hospitalization: Acute Hypokalemia Hospital Course: This 62 year old female patient with PMH of Obesity, HTN, Intracranial hemorrhage, anxiety, previous hypokalemia, RA and most recently s/p right humoral fracture presented to the ER on 08/28/22 with complaints of having 4 days of persistent N/V/D with abdominal pain. Her workup in ER was significant for a Potassium level of 1.7. She was admitted to observation with Potassium supplementation and has had a favorable course with regard to her Potassium increasing. Today she is 3.2, and her N/V/D have all resolved. Pt.'s urine did return positive for Proteus and it was sensitive to the Rocephin she received here, and will be discharged home on Cipro. Pt. states she takes no home medication and she has no PCP. I discussed at length with the patient that she will need a PCP to follow up with and I will refer her to one. She was also advised she will need to have bloodwork checked in the next few days as she will be on a low dose potassium supplementation at home. She verbalized all understanding of these instructions. Status at Discharge Cognitive/behavioral status at discharge: Pt. verbalized understanding of instructions given to her, but behaviorally I question whether or not she will be compliant, offering excuses for everything I educated her on. Functional status at discharge: independent ambulation Overall status at discharge: patient is back to baseline Time Spent with Patient Time attestation: Total time spent providing and/or coordinating discharge services: Time spent: Greater than 30 minutes Specific discharge activities: Discharge instructions, diet, BP checking and diary at home, outpatient labs, follow up with a PCP Exam Narrative: General: well-nourished, ill and tired-appearing 62-year-old female, laying in bed, comfortable, NARD Neuro: awake, alert and oriented x4, speech clear, no focal neuro deficits noted HEENMT: normocephalic, atraumatic, EOMI, sclerae anicteric, moist oral mucosa Respiratory: Clear to auscultation bilaterally without crackles, rhonchi or wheezes, nonlabored breathing Cardio: regu
--- NOTE | 2022-09-02 11:14 | PC.NURSE ---
Could not transmit meds to pharm. Meds called to [facility] in [place].
--- NOTE | 2022-09-04 11:05 | PC.NURSE ---
Pt states she received and understood her discharge instructions. Pt also states he called and made her follow up appointment with her PCP.
== END 2022-09-02 11:58 | disposition home or self-care (01) | DRG 422 ==
LOC: CHSED 20:54 → CHS2ND 21:37
PROVIDERS: Internal Medicine Critical Care Medicine; Nurse Practitioner; Nurse Practitioner Family; Admitting Provider Internal Medicine; Emergency Provider Emergency Medicine; Visit Provider Internal Medicine
DX: E87.6 Hypokalemia (principal); E86.0 Dehydration; N17.9 Acute kidney failure, unspecified; N13.6 Pyonephrosis; K80.20 Calculus of gallbladder without cholecystitis without obstruction; I49.9 Cardiac arrhythmia, unspecified; I10 Essential (primary) hypertension; M06.9 Rheumatoid arthritis, unspecified; M19.012 Primary osteoarthritis, left shoulder; M19.011 Primary osteoarthritis, right shoulder; F41.9 Anxiety disorder, unspecified; S42.201D Unspecified fracture of upper end of right humerus, subsequent encounter for fracture with routine healing
CPT/HCPCS: 36415; 71045; 74177; 80048; 80053; 81001; 82550; 83036; 83605; 83615; 83690; 83735; 83880; 84100; 84132; 84133; 84443; 84484; 85025; 85027; 85610; 85730; 86140; 87077; 87086; 87088; 87177; 87186; 87209; 87324; 93005; 96361; 96365; 96366; 96367; 96375; 96376; 99285; A9270; C9113; G0378; G0379; J0360; J0696; J1650; J1940; J2060; J2405; J3475; J3480; J7030; J7120; Q9967

== ENCOUNTER 2022-09-06 09:50 | Outpatient (CLI) | payer SELFPAY ==
[2022-09-06 10:04] LABS: Basophils Absolute Auto 0.06 K/mm3 (0.00-0.10); Basophils Percent Auto 0.7 % (0.0-1.0); Eosinophils Percent Auto 1.1 % (1.0-6.0); Immature Granulocyte Absolute 0.05 K/mm3 (0.00-0.00); Immature Granulocyte Percent A 0.5 % (0.0-0.0); Lymphocytes Absolute Auto 1.96 K/mm3 (1.10-4.50); Lymphocytes Percent Auto 21.4 % (18.0-42.0); Mean Corpuscular HGB Conc 33.3 g/dL (32.0-36.0); Mean Corpuscular Hemoglobin 31.3 pg (27.0-31.0); Mean Platelet Volume 9.1 fl (9.2-11.8); Monocytes Absolute Auto 0.61 K/mm3 (0.10-0.90); Monocytes Percent Auto 6.6 % (2.0-11.0); Neutrophils Absolute Auto 6.4 K/mm3 (1.7-7.2); Neutrophils Percent Auto 69.7 % (50.0-70.0); Platelet Count Result 438 K/mm3 (150-420); Red Blood Count 3.51 M/mm3 (4.20-5.40); Red Cell Distribution Width 13.2 % (11.6-14.4); White Blood Count 9.2 K/mm3 (4.8-10.8)
[2022-09-06 10:39] LABS: Alanine Aminotransferase 13 U/L (14-59); Albumin Level 2.9 g/dL (3.4-5.0); Alkaline Phosphatase 128 U/L (46-116); Anion Gap 8 mmol/L (8-16); Aspartate Amino Transferase 12 U/L (15-37); Bilirubin,Total 0.6 mg/dL (0.00-1.00); Blood Urea Nitrogen 8 mg/dL (7-18); Calcium 8.8 mg/dL (8.5-10.1); Carbon Dioxide 30 mmol/L (21-32); Chloride 101 mmol/L (98-108); Estimated Glomerular Filt Rate 45; Glucose 120 mg/dL (70-99); Osmolality Calculated 287 mOsm/kg (285-295); Potassium 3.1 mmol/L (3.5-5.1); Sodium 139 mmol/L (136-145); Total Protein 6.8 g/dL (6.4-8.2)
== END 2022-09-06 09:51 | disposition home or self-care (01) ==
LOC: CHSLAB 09:51
PROVIDERS: PCP Family Medicine; Visit Provider Family Medicine
DX: I10 Essential (primary) hypertension (principal)
CPT/HCPCS: 36415; 80053; 85025

== ENCOUNTER 2023-01-24 11:21 | Outpatient (CLI) | payer MEDICARE, SELFPAY ==
[2023-01-24 11:39] LABS: Basophils Absolute Auto 0.07 K/mm3 (0.00-0.10); Basophils Percent Auto 0.7 % (0.0-1.0); Eosinophils Absolute Auto 0.16 K/mm3 (0.02-0.50); Eosinophils Percent Auto 1.6 % (1.0-6.0); Hematocrit 39.1 % (35.0-49.0); Hemoglobin 13.2 g/dL (12.0-15.0); Immature Granulocyte Absolute 0.04 K/mm3 (0.00-0.00); Immature Granulocyte Percent A 0.4 % (0.0-0.0); Lymphocytes Absolute Auto 2.74 K/mm3 (1.10-4.50); Lymphocytes Percent Auto 27.4 % (18.0-42.0); Mean Corpuscular HGB Conc 33.8 g/dL (32.0-36.0); Mean Corpuscular Volume 91.8 fL (78.0-102.0); Mean Platelet Volume 9.2 fl (9.2-11.8); Monocytes Absolute Auto 0.44 K/mm3 (0.10-0.90); Monocytes Percent Auto 4.4 % (2.0-11.0); Neutrophils Absolute Auto 6.5 K/mm3 (1.7-7.2); Neutrophils Percent Auto 65.5 % (50.0-70.0); Platelet Count Result 333 K/mm3 (150-420); Red Blood Count 4.26 M/mm3 (4.20-5.40); Red Cell Distribution Width 13.4 % (11.6-14.4)
[2023-01-24 12:55] LABS: Alanine Aminotransferase 30 U/L (14-59); Albumin Level 3.4 g/dL (3.4-5.0); Alkaline Phosphatase 142 U/L (46-116); Anion Gap 4 mmol/L (8-16); Aspartate Amino Transferase 45 U/L (15-37); Bilirubin,Total 0.5 mg/dL (0.00-1.00); Blood Urea Nitrogen 11 mg/dL (7-18); Calcium 9.1 mg/dL (8.5-10.1); Carbon Dioxide 39 mmol/L (21-32); Chloride 101 mmol/L (98-108); Estimated Glomerular Filt Rate 48; Folic Acid 9.5 ng/mL (8.6->20); Glucose 153 mg/dL (70-99); Osmolality Calculated 300 mOsm/kg (285-295); Sodium 144 mmol/L (136-145); Total Protein 6.8 g/dL (6.4-8.2); Vitamin B12 266 pg/mL (193-986)
[2023-01-24 12:58] LABS: Potassium 2.3 mmol/L (3.5-5.1)
[2023-01-24 12:59] LABS: Thyroid Stimulating Hormone Reflex 0.62 u/IU/mL (0.36-3.74)
== END 2023-01-24 11:22 | disposition home or self-care (01) ==
PROVIDERS: PCP Family Medicine; Visit Provider Family Medicine
DX: E11.9 Type 2 diabetes mellitus without complications (principal); E53.8 Deficiency of other specified B group vitamins; I10 Essential (primary) hypertension
CPT/HCPCS: 36415; 80053; 82607; 82746; 84443; 85025

== ENCOUNTER 2023-01-24 15:19 | Emergency (ER) | payer MEDICARE, SELFPAY ==
[2023-01-24] VITALS (7 sets, daily range): BP systolic 166–184; BP diastolic 87–104; PULSE 61–68; RESP 18–20; TEMP 36.6; O2SAT 95–99
--- NOTE | 2023-01-24 15:31 | ED.GENADULT ---
HPI - General Adult General Chief complaint: Recheck/Abnormal Lab/Rx Stated complaint: low potassium Time Seen by Provider: 01/24/23 15:23 Source: patient Mode of arrival: ambulatory Limitations: no limitations History of Present Illness HPI narrative: 62-year-old female with a history of hypertension, rheumatoid arthritis, ICH, recurrent ventral hernia status post repair, osteoarthritis, renal insufficiency, recurrent hypokalemia / hypomagnesemia presents to the ER with -- leg cramps for the past 3 days. -- hypokalemia with a potassium of 2.3. Denied any chest pain or shortness of breath. She denied any nausea /vomiting /abdominal pain / diarrhea. prior hospitalization in August for hypokalemia. Onset (ago): day(s) ( Three days) Treatments prior to arrival: none Related Data Allergies Allergy/AdvReac Type Severity Reaction Status Date / Time Sulfa (Sulfonamide Allergy Severe REACTION Verified 01/24/23 07:42 Antibiotics) CHILD----SEVERE SWELLING AND RASH sulfanilamide Allergy Mild Swelling Verified 01/24/23 07:42 latex AdvReac Intermediate BLISTERS Verified 01/24/23 07:42 UPON CONTACT Sulfonamides Allergy Intermediate anaphylaxis Uncoded 01/24/23 07:42 Review of Systems Review of Systems: All systems reviewed & are unremarkable except as noted in HPI and below Constitutional: Constitutional: Reports as per HPI and Reports no additional constitutional complaints Eyes: Eyes: Reports as per HPI and Reports no additional eye complaints ENT: Reports system reviewed and no additional complaints, except as documented and Reports as per HPI Cardiovascular: Cardiovascular: Reports as per HPI and Reports no additional cardiovascular complaints Respiratory: Respiratory: Reports as per HPI and Reports no additional respiratory complaints Gastrointestinal: Gastrointestinal: Reports as per HPI and Reports no additional gastrointestinal complaints Genitourinary: Genitourinary: Reports no additional female genitourinary complaints and Reports as per HPI Musculoskeletal: Musculoskeletal: Reports no additional musculoskeletal complaints, Reports as per HPI and Reports muscle cramps Integumentary/Breasts: Skin/Breast: Reports system reviewed and no additional complaints, except as docu and Reports as per HPI Neurologic: Reports system reviewed and no additional complaints, except as documented and Reports as per HPI Psychiatric: Psychiatric: Reports no additional psychiatric complaints and Reports as per HPI Endocrine: Endocrine: Reports no additional endocrine complaints and Reports as per HPI Hematologic/Lymphatic: Hematologic/Lymphatic: Reports no additional hematologic/lymphatic complaints and Reports as per HPI Allergic/Immunologic: Allergic/Immunologic: Reports no additional allergic/immunologic complaints and Reports as per HPI [facility] Past Medical History Medical History BMI 37.0-37.9, adult History of cerebral hemorrhage Hypertension Hypokalemia (02/10/13) Recurrent ventral hernia with obstruction Rheumatoid arthritis Surgical History Surgical History H/O umbilical hernia repair H/O ventral hernia repair 10/20/20 Laparoscopic repair recurrent ventral hernia with 20 x 15 Symbotex mesh S/P S/P excision of lipoma S/P knee replacement Family History Family History Father Diabetes mellitus Mother Macular degeneration Sibling Thyroid disease Grandparent Lung cancer Other Cerebrovascular accident Hypertension Social History Social History Social History: Patient currently lives at home with family. She elects Michael her son to be her surrogate, and wants to be a full code. She does have 2 dogs at home. Smoking status: Never smoker Alcohol inta
--- NOTE | 2023-01-24 15:54 | ECG_ITS ---
Measurements Intervals [place] Rate: 58 P: 87 VT: 151 QRS: -8 QRSD: 104 T: -6 QT: 436 QTc: 431 Interpretive Statements SINUS BRADYCARDIA ATRIAL PREMATURE COMPLEXES NONSPECIFIC ST & T-WAVE ABNORMALITY- DIFFUSE LEADS BASELINE ARTIFACT- I, II, III, AVF BORDERLINE ECG COMPARED TO ECG 08/29/2022 07:41:42 SINUS BRADYCARDIA NOW PRESENT Electronically Signed On 01-25-2023 9:07:33 CRANIOLOGIST by Ozzie Rodriguez D.O.
[2023-01-24 16:01] LABS: Magnesium 1.8 mg/dL (1.8-2.4)
[2023-01-24] MEDS: POTASSIUM CHLORIDE 20 MEQ ER TABLET 40 MEQ PO ×2 (16:46→21:02)
[2023-01-24] MEDS: SPIRONOLACTONE 25 MG TABLET PO ×2 (16:46→20:59)
[2023-01-24] MEDS: KCL 20 MEQ/SW 100 ML 100 ML 50 MEQ IVPB ×2 (17:31→20:27)
[2023-01-24] MEDS: LACTATED RINGERS 500 ML 250 ML (17:32)
[2023-01-24 20:11] LABS: Magnesium 1.8 mg/dL (1.8-2.4); Troponin I 37.2 ng/L (0.00-60.4)
[2023-01-24] MEDS: SODIUM CHLORIDE 0.9% IV 500 ML 999 ML IV CONT (20:27)
[2023-01-24] MEDS: ALPRAZolam (*CRX) 0.5 MG TABLET 0.25 MG PO (20:59)
[2023-01-24 22:48] LABS: Anion Gap 3 mmol/L (8-16); Blood Urea Nitrogen 13 mg/dL (7-18); Calcium 8.7 mg/dL (8.5-10.1); Carbon Dioxide 37 mmol/L (21-32); Chloride 104 mmol/L (98-108); Estimated CRCL calculation 50 ml/min; Estimated Glomerular Filt Rate 51; Glucose 161 mg/dL (70-99); Osmolality Calculated 301 mOsm/kg (285-295); Sodium 144 mmol/L (136-145)
[2023-01-24 22:49] LABS: Potassium 2.2 mmol/L (3.5-5.1)
== END 2023-01-24 23:49 | disposition left against medical advice (07) ==
PROVIDERS: Emergency Provider Internal Medicine Critical Care Medicine; PCP Family Medicine
DX: E87.6 Hypokalemia (principal); R25.2 Cramp and spasm; I10 Essential (primary) hypertension; M06.9 Rheumatoid arthritis, unspecified
CPT/HCPCS: 36415; 80048; 80053; 82607; 82746; 83735; 84132; 84443; 84484; 85025; 93005; 96365; 96366; 99284; A9270; J3480; J7040; J7120

== ENCOUNTER 2023-04-05 15:08 | Outpatient (CLI) | payer MEDICARE, SELFPAY ==
[2023-04-05 15:28] LABS: Appearance Urine Clear (Clear); Bilirubin Urine 1+ (Negative); Blood Urine Trace-Intact (Negative); Color Urine Yellow (Yellow); Glucose Urine UA Negative (Negative); Ketones Urine Trace (Negative); Leukocyte Esterase Ur 1+ (Negative); Nitrate Urine Negative (Negative); Protein Urine 1+ (Negative); Specific Grav Ur 1.025 (1.010-1.020); Urobilinogen Urine 0.2 mg/dL (0.2-1.0); pH Urine 6.5 (5.0-8.0)
[2023-04-05 15:37] LABS: Add Urine Microscopic? YES; Bacteria Urine 1+ /hpf; RBC Urine 0-2 /hpf (0-2); Renal Epithelial Cells Urine Few /hpf; Squamous Epithelial Cell Urine Few /hpf (Few)
== END 2023-04-05 15:09 | disposition home or self-care (01) ==
PROVIDERS: PCP Family Medicine; Visit Provider Internal Medicine Nephrology
DX: N39.0 Urinary tract infection, site not specified (principal)
CPT/HCPCS: 81001; 87077; 87086; 87088

== ENCOUNTER 2023-04-09 21:01 | Emergency (ER) | payer MEDICARE, SELFPAY ==
--- NOTE | ~2023-04-09 | XR_ITS ---
EXAM: XR shoulder LT min 2V DATE: 04/09/2023 21:31 HISTORY: anterior shoulder pain X 12 HOURS/NO TRAUMA . COMPARISON: X-ray chest 09/01/2022. FINDINGS: Decreased mineralization. No fracture or dislocation. No lytic or blastic lesion. Moderate AC joint and severe glenohumeral joint arthritic change. Large medial humeral inferiorly directed os teophytes and/or adjacent inferior joint recess loose joint bodies. No erosion or periosteal change. Soft tissues within normal limits. IMPRESSION: No acute osseous finding in the left shoulder. Moderate AC joint and severe glenohumeral joint osteoarthritis. Large glenohumeral osteophytes and/or loose bodies in the inferior glenohumeral recess. Reviewed, dictated and finalized at location [facility]. [place] SEASONAL SPECIALIST IMPRESSION: No acute osseous finding in the left shoulder. Moderate AC joint an d severe glenohumeral joint osteoarthritis. Large glenohumeral osteophytes and/ or loose bodies in the inferior glenohumeral recess.
[2023-04-09 21:01] VITALS: BP 160/90; PULSE 74; RESP 18; TEMP 37.5; O2SAT 99
--- NOTE | 2023-04-09 21:02 | ED.GENADULT ---
HPI - General Adult General Chief complaint: Extremity Problem,Nontraumatic Stated complaint: left arm pain Time Seen by Provider: 04/09/23 21:02 History of Present Illness HPI narrative: Patient is a 63 year old female with history of HTN, OA, recurrent hypokalemia here with left shoulder pain. Patient notes that yesterday she was lifting a couple of heavy boxes. Today she woke up with significant pain in the front of her left shoulder as well as a bulge to that area. She notes she had similar several years ago which self resolved. Pain is severe, worse with any movement of the arm including flexion and abduction of the shoulder. She took a norco around 1 pm which helped mildly with symptoms. She denies trauma or fall. She denies numbness or tingling in the arm. No swelling of the arm itself. No pain in elbow or wrist. No chest pain or shortness of breath. No fever or chills. Of note, patient had a UA performed about 4 days ago, just finished a 3 day course of an antibiotic today, unsure of which antibiotic this was, never had many symptoms, feels a bit better after abx. She does have a history of recurrent hypokalemia, takes 2 x 20 mg of potassium daily since that visit. Does not believe her levels have been checked again since that time. She is currently awaiting an appointment with nephrology. She has a large amount of lab work, imaging and urine tests ordered for later this week via her gallery host. Related Data Allergies Allergy/AdvReac Type Severity Reaction Status Date / Time Sulfa (Sulfonamide Allergy Severe REACTION Verified 04/09/23 21:26 Antibiotics) CHILD----SEVERE SWELLING AND RASH sulfanilamide Allergy Mild Swelling Verified 04/09/23 21:26 latex AdvReac Intermediate BLISTERS Verified 04/09/23 21:26 UPON CONTACT Sulfonamides Allergy Intermediate anaphylaxis Uncoded 04/09/23 21:26 Review of Systems Review of Systems: All systems reviewed & are unremarkable except as noted in HPI and below PMFSH Past Medical History Medical History BMI 37.0-37.9, adult History of cerebral hemorrhage Hypertension Hypokalemia (02/10/13) Recurrent ventral hernia with obstruction Rheumatoid arthritis Surgical History Surgical History H/O umbilical hernia repair H/O ventral hernia repair 10/20/20 Laparoscopic repair recurrent ventral hernia with 20 x 15 Symbotex mesh S/P S/P excision of lipoma S/P knee replacement Family History Family History Father Diabetes mellitus Mother Macular degeneration Sibling Thyroid disease Grandparent Lung cancer Other Cerebrovascular accident Hypertension Social History Social History Social History: Patient currently lives at home with family. She elects Michael her son to be her surrogate, and wants to be a full code. She does have 2 dogs at home. 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 HEAD: Normocephalic, atraumatic. EYES: PERRLA and EOMI.
--- NOTE | 2023-04-09 21:06 | ECG_ITS ---
Measurements Intervals [place] Rate: 64 P: 54 MI: 167 QRS: -9 QRSD: 98 T: -5 QT: 410 QTc: 426 Interpretive Statements SINUS RHYTHM ATRIAL PREMATURE COMPLEX LEFT VENTRICULAR HYPERTROPHY AND ST-T CHANGE BORDERLINE R WAVE PROGRESSION, ANTERIOR LEADS BORDERLINE ST-T WAVE ABNORMALITY- ANTEROLAT/INF LEADS BASELINE ARTIFACT- I, II, III, AVR, AVL, AVF BORDERLINE ECG COMPARED TO ECG 01/24/2023 16:37:42 SINUS RHYTHM NOW PRESENT Electronically Signed On 04-10-2023 6:32:58 ZOOLOGY TEACHER by Ozzie Rodriguez D.O.
[2023-04-09 21:30] LABS: Basophils Absolute Auto 0.05 K/mm3 (0.00-0.10); Basophils Percent Auto 0.4 % (0.0-1.0); Eosinophils Percent Auto 0.9 % (1.0-6.0); Hematocrit 37.6 % (35.0-42.0); Hemoglobin 13.1 g/dL (11.7-13.8); Immature Granulocyte Absolute 0.04 K/mm3 (0.00-0.00); Immature Granulocyte Percent A 0.4 % (0.0-0.0); Lymphocytes Absolute Auto 1.94 K/mm3 (1.10-4.50); Mean Corpuscular HGB Conc 34.8 g/dL (32.0-36.0); Mean Corpuscular Hemoglobin 30.7 pg (27.0-31.0); Mean Corpuscular Volume 88.1 fL (78.0-102.0); Mean Platelet Volume 9.1 fl (9.2-11.8); Monocytes Percent Auto 8.8 % (2.0-11.0); Neutrophils Absolute Auto 8.3 K/mm3 (1.7-7.2); Neutrophils Percent Auto 72.5 % (50.0-70.0); Platelet Count Result 287 K/mm3 (150-420); Red Blood Count 4.27 M/mm3 (4.20-5.40); Red Cell Distribution Width 13.1 % (11.6-14.4); White Blood Count 11.4 K/mm3 (4.8-10.8)
[2023-04-09] MEDS: KETOROLAC 30 MG/ML VIAL (*BKC) IM (21:30)
--- NOTE | 2023-04-09 21:34 | PC.NURSE ---
Addendum entered by Ben Goff RN 04/09/23 21:53: Pt presents to the ED c/o left upper arm pain and a knot onset yesterday. Pt denies any recent falls, or injuries. Pt notes that she did lift some boxes yesterday. Pain is worse with movement. Pt notes that she had something similar occur around 6 months ago which resolved on its own. Pt also notes being recently started on Potassium for chronic hypokalemia and spironolactone by her zinc plate grainer. Pt states that she has been taking her medications as prescribed. Original Note: Pt presents to the ED c/o left upper arm pain and a knot onset yesterday. Pt denies any recent heavy lifting, falls, or injuries. Pain is worse with movement. Pt notes that she had something similar occur around 6 months ago which resolved on its own. Pt also notes being recently started on Potassium for chronic hypokalemia and spironolactone by her zinc plate grainer. Pt states that she has been taking her medications as prescribed.
[2023-04-09 21:50] LABS: Alanine Aminotransferase 16 U/L (14-59); Albumin Level 3.4 g/dL (3.4-5.0); Alkaline Phosphatase 131 U/L (46-116); Anion Gap 10 mmol/L (8-16); Aspartate Amino Transferase 12 U/L (15-37); Bilirubin,Total 0.9 mg/dL (0.00-1.00); Blood Urea Nitrogen 12 mg/dL (7-18); Calcium 8.7 mg/dL (8.5-10.1); Carbon Dioxide 31 mmol/L (21-32); Chloride 97 mmol/L (98-108); Creatine Kinase 49 U/L (26-192); Estimated CRCL calculation 51 ml/min; Estimated Glomerular Filt Rate 51; Glucose 159 mg/dL (70-99); Magnesium 1.7 mg/dL (1.8-2.4); Osmolality Calculated 288 mOsm/kg (285-295); Sodium 138 mmol/L (136-145); Total Protein 7.4 g/dL (6.4-8.2)
[2023-04-09 21:52] LABS: Potassium 1.9 mmol/L (3.5-5.1)
--- NOTE | 2023-04-09 22:01 | PC.NURSE ---
Pt updated on potassium of 1.[address] an IV for IV potassium replacement. Pt stating that she does not want an IV due to the length of time it takes for Potassium to infuse and her not wanting to wait in the ED. When asked if the patient would take PO potassium here instead, she states I have that at home . Pt states that she has been dealing with low potassium for a long time, and this is why she is seeing her kidney doctor soon. Dr. Gomez aware and will talk with the patient.
[2023-04-09] MEDS: MAGNESIUM OXIDE 400 MG TABLET PO (22:24)
[2023-04-09 22:38] VITALS: BP 158/98; PULSE 57; RESP 18; TEMP 37.4; O2SAT 97
== END 2023-04-09 22:40 | disposition left against medical advice (07) ==
PROVIDERS: Emergency Provider Student in an Organized Health Care Education/Training Program; PCP Family Medicine
DX: E87.6 Hypokalemia (principal); M25.712 Osteophyte, left shoulder; E83.42 Hypomagnesemia; I10 Essential (primary) hypertension; M06.9 Rheumatoid arthritis, unspecified
CPT/HCPCS: 36415; 73030; 80053; 82550; 83735; 85025; 93005; 96372; 99283; A4565; A9270; J1885

== ENCOUNTER 2023-04-20 08:35 | Outpatient (CLI) | payer MEDICARE, SELFPAY ==
--- NOTE | ~2023-04-20 | CT_ITS ---
CT of the Abdomen and Pelvis: Indication: Chronic hypokalemia Technique: 2.5 mm axial scans were obtained through the abdomen and pelvis following intravenous adm inistration of 100 cc of Omnipaque 350. Dose reduction technique was used on this scan by utilizing a utomated exposure control and iterative reconstruction technique. The dose-length product (DLP) was 1 020.82 mGy-cm. COMPARISON: 08/29/2022 Findings: Scans through the lung bases are unremarkable. The liver, spleen, pancreas, adrenals and kidneys are within normal limits. Very large calcified gall stone is unchanged from prior exam. No evidence of aortic aneurysm. No lymphadenopathy. No bowel obstruction or bowel wall thickening. There is no evidence to suggest acute appendicitis. Sm all fat-containing umbilical hernia present. Images through the pelvis were performed. Urinary bladder unremarkable. No adnexal mass seen. No asci salvador. Impression: Cholelithiasis, unchanged. Small fat-containing umbilical hernia. Reviewed, dictated and finalized at location . OMIC HISTORIAN Impression: Cholelithiasis, unchanged. Small fat-containing umbilical hernia.
[2023-04-20 10:41] LABS: Alanine Aminotransferase 9 U/L (6-35); Albumin Level 3.7 g/dL (3.5-5.1); Alkaline Phosphatase 108 U/L (38-126); Anion Gap 3 mmol/L (8-16); Aspartate Amino Transferase 21 U/L (14-36); Bilirubin,Total 1.1 mg/dL (0.2-1.3); Blood Urea Nitrogen 15 mg/dL (7-17); Calcium 9.3 mg/dL (8.4-10.2); Carbon Dioxide 35 mmol/L (22-30); Chloride 101 mmol/L (98-107); Estimated Glomerular Filt Rate > 60; Glucose 107 mg/dL (65-110); Magnesium 1.8 mg/dL (1.6-2.3); Phosphorus 3.3 mg/dL (2.5-4.5); Potassium 2.9 mmol/L (3.4-5.0); Sodium 139 mmol/L (137-145)
[2023-04-20 11:12] LABS: Cortisol Random 8.17 ug/dL; Thyroid Stimulating Hormone 0.393 uIU/mL (0.465-4.680)
[2023-04-23 19:08] LABS: Osmolality, Urine 478 mOsm/kg (50-1200)
== END 2023-04-20 08:36 | disposition home or self-care (01) ==
PROVIDERS: PCP Family Medicine; Visit Provider Internal Medicine Nephrology
DX: K80.20 Calculus of gallbladder without cholecystitis without obstruction (principal); K42.9 Umbilical hernia without obstruction or gangrene; E03.9 Hypothyroidism, unspecified; E87.6 Hypokalemia
CPT/HCPCS: 36415; 74177; 80053; 82436; 82533; 82570; 83735; 83930; 83935; 84100; 84436; 84443; Q9967

== ENCOUNTER 2023-06-14 08:18 | Outpatient (CLI) | payer MEDICARE, SELFPAY ==
[2023-06-14 09:11] LABS: Potassium Urine Random 10.1 mmol/L (12-62)
[2023-06-14 09:48] LABS: Alanine Aminotransferase 12 U/L (14-59); Albumin Level 3.8 g/dL (3.4-5.0); Alkaline Phosphatase 139 U/L (46-116); Anion Gap 11 mmol/L (4-12); Aspartate Amino Transferase 11 U/L (15-37); Bilirubin,Total 1.3 mg/dL (0.00-1.00); Blood Urea Nitrogen 12 mg/dL (7-18); Calcium 9.2 mg/dL (8.5-10.1); Carbon Dioxide 30 mmol/L (21-32); Chloride 102 mmol/L (98-108); Estimated Glomerular Filt Rate 56; Glucose 124 mg/dL (70-99); Magnesium 1.9 mg/dL (1.8-2.4); Osmolality Calculated 296 mOsm/kg (285-295); Phosphorus 3.3 mg/dL (2.6-4.7); Sodium 143 mmol/L (136-145); Thyroid Stimulating Hormone 0.44 uIU/mL (0.36-3.74); Total Protein 7.1 g/dL (6.4-8.2)
[2023-06-14 09:51] LABS: Potassium 2.5 mmol/L (3.5-5.1)
[2023-06-17 06:58] LABS: Cortisol Random 19.8 mcg/dL (***)
[2023-06-17 19:28] LABS: Osmolality, Urine 423 mOsm/kg (50-1200)
[2023-06-18 07:50] LABS: T4 Thyroxine 9.6 mcg/dL (5.9-10.3)
== END 2023-06-14 08:19 | disposition home or self-care (01) ==
LOC: CHSLAB 08:24
PROVIDERS: PCP Family Medicine; Visit Provider Internal Medicine Nephrology
DX: E87.6 Hypokalemia (principal); E03.9 Hypothyroidism, unspecified
CPT/HCPCS: 36415; 80053; 82533; 83735; 83930; 83935; 84100; 84133; 84436; 84443

== ENCOUNTER 2023-06-29 10:11 | Outpatient (CLI) | payer MEDICARE, SELFPAY ==
[2023-06-29 11:17] LABS: Alanine Aminotransferase 16 U/L (14-59); Albumin Level 4.2 g/dL (3.4-5.0); Alkaline Phosphatase 150 U/L (46-116); Anion Gap 10 mmol/L (4-12); Aspartate Amino Transferase 12 U/L (15-37); Bilirubin,Total 0.7 mg/dL (0.00-1.00); Blood Urea Nitrogen 18 mg/dL (7-18); Calcium 9.2 mg/dL (8.5-10.1); Carbon Dioxide 28 mmol/L (21-32); Chloride 104 mmol/L (98-108); Estimated Glomerular Filt Rate 37; Glucose 113 mg/dL (70-99); Magnesium 1.8 mg/dL (1.8-2.4); Osmolality Calculated 296 mOsm/kg (285-295); Phosphorus 4.3 mg/dL (2.6-4.7); Potassium 4.1 mmol/L (3.5-5.1); Sodium 142 mmol/L (136-145); Thyroid Stimulating Hormone 0.68 uIU/mL (0.36-3.74); Total Protein 7.9 g/dL (6.4-8.2)
[2023-07-01 13:03] LABS: Chloride Rand Ur 112 mmol/L (32-290); Chloride/Creatinine Rand Ur 151 (38-318); Creatinine Random Urine 74 mg/dL (20-275)
[2023-07-01 13:38] LABS: T4 Thyroxine 8.8 mcg/dL (5.1-11.9)
[2023-07-02 15:39] LABS: Osmolality, Urine 417 mOsm/kg (50-1200)
[2023-07-04 06:46] LABS: Cortisol Random 18.2
== END 2023-06-29 10:12 | disposition home or self-care (01) ==
LOC: CHSLAB 10:13
PROVIDERS: PCP Family Medicine; Visit Provider Internal Medicine Nephrology
DX: E87.5 Hyperkalemia (principal); E87.6 Hypokalemia; E03.9 Hypothyroidism, unspecified; R30.0 Dysuria
CPT/HCPCS: 36415; 80053; 82436; 82533; 82570; 83735; 83935; 84100; 84133; 84436; 84443

== ENCOUNTER 2023-07-16 08:13 | Outpatient (CLI) | payer MEDICARE, SELFPAY ==
[2023-07-16 09:50] LABS: Anion Gap 10 mmol/L (4-12); Blood Urea Nitrogen 17 mg/dL (7-18); Calcium 9.4 mg/dL (8.5-10.1); Carbon Dioxide 26 mmol/L (21-32); Chloride 105 mmol/L (98-108); Estimated Glomerular Filt Rate 45; Glucose 93 mg/dL (70-99); Osmolality Calculated 293 mOsm/kg (285-295); Potassium 4.2 mmol/L (3.5-5.1); Sodium 141 mmol/L (136-145)
[2023-07-16 13:37] LABS: Albumin Level 3.9 g/dL (3.4-5.0); Phosphorus 3.3 mg/dL (2.6-4.7)
== END 2023-07-16 08:14 | disposition home or self-care (01) ==
LOC: CHSLAB 08:15
PROVIDERS: PCP Family Medicine; Visit Provider Internal Medicine Nephrology
DX: E87.6 Hypokalemia (principal)
CPT/HCPCS: 36415; 80048; 80069

== ENCOUNTER 2023-11-21 20:05 | Emergency (ER) | payer MEDICARE, SELFPAY ==
--- NOTE | ~2023-11-21 | CT_ITS ---
CT abdomen pelvis Wo Comparison x-ray from February Ordering provider: Mauro Bess MD History: 63 years Female with . RIGHT Flank pain X 2 DAYS/HX OF STONES . Comparison: April 20, 2023 Technique: CT abdomen and pelvis without IV and without oral contrast. Automated exposure control and iterative reconstruction technique were employed. The dose-length product was 1173.38 mGy-cm. Findings: VISUALIZED LOWER CHEST: Slight cardiomegaly. Slightly prominent pulmonary artery measuring 3.5 cm suggestive of pulmonary hypertension. UPPER ABDOMINAL ORGANS: Liver: Mild hepatomegaly. Gallbladder: Cholelithiasis with large stone seen in the gallbladder. Spleen: Normal. Stomach/duodenum: Normal. Pancreas: Normal. Adrenals: Normal. Kidneys: Focal subcortical calcification the left kidney upper pole. Tiny stone in the left kidney lo wer pole PELVIC ORGANS: The bladder is underfilled. BOWEL AND MESENTERY: Colon: No evidence of diverticulitis. Normal appendix. Small Bowel: Normal. No obstruction. Peritoneum/mesentery: No free air or free fluid. No mesenteric lymphadenopathy. RETROPERITONEUM: Mild atheromatous disease of the abdominal aorta. No retroperitoneal lymphadenopat hy. MUSCULOSKELETAL: Superficial soft tissues: Umbilical fat-containing hernia. Fat-containing Right inguinal hernia Othe rwise, The superficial soft tissues are normal. Bones: Age appropriate degenerative changes of the spine. Bilateral sacroiliacs. IMPRESSION: 1. Cholelithiasis. 2. Tiny stone in the left kidney lower pole. 3. Umbilicus on the right inguinal fat containing hernia. Reviewed, dictated and finalized at location A.
--- NOTE | 2023-11-21 20:10 | ED.BACK ---
HPI - Back Pain/Injury General Chief Complaint: Abdominal Pain Stated Complaint: flank pain Time Seen by Provider: 11/21/23 20:09 History of Present Illness HPI Narrative: 63-year-old female with a history hypertension, rheumatoid arthritis, intracranial hemorrhage many years ago, osteoarthritis, ventral hernia, gallstones, kidney stones, CKD with recurrent hypokalemia hypomagnesemia presents to the ED with a 2 day history of -- bilateral flank pains. No radiation of the pain. Pain is worse when she moves around. No dysuria or hematuria no fever or chills. No nausea/vomiting / diarrhea. -- Patient was noted to be hypotensive with a blood pressure of 222/113. A repeat blood pressure was noted to be 214/99. MD elicited complaint: other ( Bilateral posterior CVA ankle pain) Pertinent past history: prior back pain and kidney stones Onset (ago): day(s) ( 2 days) Timing: intermittent Severity: severe Similar Symptoms Previously: Yes Quality: dull Radiation: none Exacerbating factors: movement Relieving factors: immobilization Associated symptoms: denies other symptoms Related Data Allergies Allergy/AdvReac Type Severity Reaction Status Date / Time Sulfa (Sulfonamide Allergy Severe REACTION Verified 07/02/23 08:48 Antibiotics) CHILD----SEVERE SWELLING AND RASH sulfanilamide Allergy Mild Swelling Verified 07/02/23 08:48 latex AdvReac Intermediate BLISTERS Verified 07/02/23 08:48 UPON CONTACT Sulfonamides Allergy Intermediate anaphylaxis Uncoded 07/02/23 08:48 Review of Systems Review of Systems: All systems reviewed & are unremarkable except as noted in HPI and below Constitutional: Constitutional: Reports as per HPI and Reports no additional constitutional complaints Eyes: Eyes: Reports as per HPI and Reports no additional eye complaints ENT: Reports system reviewed and no additional complaints, except as documented and Reports as per HPI Cardiovascular: Cardiovascular: Reports as per HPI and Reports no additional cardiovascular complaints Respiratory: Respiratory: Reports as per HPI and Reports no additional respiratory complaints Gastrointestinal: Gastrointestinal: Reports as per HPI and Reports no additional gastrointestinal complaints Genitourinary: Genitourinary: Reports flank pain ( bilateral flank pain) Musculoskeletal: Musculoskeletal: Reports no additional musculoskeletal complaints, Reports as per HPI and Reports back pain Integumentary/Breasts: Skin/Breast: Reports system reviewed and no additional complaints, except as docu and Reports as per HPI Neurologic: Reports system reviewed and no additional complaints, except as documented and Reports as per HPI Psychiatric: Psychiatric: Reports no additional psychiatric complaints and Reports as per HPI Endocrine: Endocrine: Reports no additional endocrine complaints and Reports as per HPI Allergic/Immunologic: Allergic/Immunologic: Reports no additional allergic/immunologic complaints and Reports as per HPI [facility] Past Medical History Medical History Arthritis of shoulder region, left, degenerative BMI 37.0-37.9, adult History of cerebral hemorrhage Hypertension Hypokalemia (02/10/13) Recurrent ventral hernia with obstruction Rheumatoid arthritis Surgical History Surgical History H/O umbilical hernia repair H/O ventral hernia repair 10/20/20 Laparoscopic repair recurrent ventral hernia with 20 x 15 Symbotex mesh S/P S/P excision of lipoma S/P knee replacement Family History Family History Father Diabetes mellitus Mother Macular degeneration Sibling Thyroid disease Grandparent Lung cancer Other Cerebrovascular accident Hypertension Social History Social History Social Hi
--- NOTE | 2023-11-21 20:12 | ECG_ITS ---
Test Date: 2023-11-21 20:17:20 Measurements Intervals [place] Rate: 65 P: 72 SC: 164 QRS: -4 QRSD: 94 T: -7 QT: 386 QTc: 402 Interpretive Statements SINUS RHYTHM ATRIAL AND VENTRICULAR PREMATURE COMPLEXES DELAYED PRECORDIAL R/S TRANSITION NONSPECIFIC ST & T-WAVE ABNORMALITY- DIFFUSE LEADS BASELINE ARTIFACT- I, II, AVR, AVL BORDERLINE ECG No previous ECG available for comparison Electronically Signed On 11-22-2023 05:42:30 CDT by Ozzie Rodriguez D.O.
[2023-11-21 20:19] VITALS: BP 201/125; BP 214/99; PULSE 61; PULSE 68; RESP 13; RESP 14; TEMP 36.7; O2SAT 96; O2SAT 97
--- NOTE | 2023-11-21 20:24 | PC.NURSE ---
pt taken to bathroom for urine specimen
--- NOTE | 2023-11-21 20:27 | PC.NURSE ---
lab at bedside
--- NOTE | 2023-11-21 20:29 | PC.NURSE ---
lab in room drawing blood. 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
--- NOTE | 2023-11-21 20:31 | PC.NURSE ---
to CT per wheelchair
[2023-11-21 20:36] LABS: Basophils Absolute Auto 0.06 K/mm3 (0.00-0.10); Basophils Percent Auto 0.6 % (0.0-1.0); Eosinophils Absolute Auto 0.28 K/mm3 (0.02-0.50); Eosinophils Percent Auto 2.6 % (1.0-6.0); Hematocrit 36.8 % (35.0-42.0); Hemoglobin 12.9 g/dL (11.7-13.8); Immature Granulocyte Absolute 0.04 K/mm3 (0.00-0.00); Immature Granulocyte Percent A 0.4 % (0.0-0.0); Lymphocytes Absolute Auto 2.89 K/mm3 (1.10-4.50); Lymphocytes Percent Auto 26.8 % (18.0-42.0); Mean Corpuscular HGB Conc 35.1 g/dL (32-36); Mean Corpuscular Hemoglobin 31.2 pg (27.0-31.0); Mean Corpuscular Volume 89.1 fL (78.0-102.0); Mean Platelet Volume 9.3 fl (9.2-11.8); Monocytes Absolute Auto 0.78 K/mm3 (0.10-0.90); Monocytes Percent Auto 7.2 % (2.0-11.0); Neutrophils Absolute Auto 6.73 K/mm3 (1.70-7.20); Neutrophils Percent Auto 62.4 % (50.0-70.0); Platelet Count Result 265 K/mm3 (150-420); Red Blood Count 4.13 M/mm3 (4.20-5.40); White Blood Count 10.8 K/mm3 (4.8-10.8)
--- NOTE | 2023-11-21 20:37 | PC.NURSE ---
patient returned from ct via wheel chair. placed back on library monitor. patient requested that blood pressure cuff be left off because it gets too tight
--- NOTE | 2023-11-21 20:39 | PC.NURSE ---
pt refusing blood pressure cuff states it squeezes too tight
[2023-11-21 20:41] LABS: Color Urine Yellow (Yellow)
[2023-11-21 20:42] LABS: Add Urine Microscopic? YES; Appearance Urine Clear (Clear); Bilirubin Urine Negative (Negative); Blood Urine Trace (Negative); Glucose Urine UA Negative (Negative); Ketones Urine Negative (Negative); Leukocyte Esterase Ur Negative LEU/UL (Negative); Nitrate Urine Negative (Negative); Protein Urine Trace (Negative); RBC Urine 0-2 /hpf (0-2); Squamous Epithelial Cell Urine Rare /hpf (Few); Urobilinogen Urine 0.2 mg/dL (0.2-1.0); WBC Urine 0-3 /hpf (0-3); pH Urine 6.5 (5.0-8.0)
[2023-11-21 20:43] LABS: Bacteria Urine Trace /hpf
--- NOTE | 2023-11-21 20:44 | PC.NURSE ---
sean rn at the bedside placing iv line
[2023-11-21] MEDS: LACTATED RINGERS 500 ML 999 ML IV CONT ×3 (20:54→22:52)
[2023-11-21] MEDS: ONDANSETRON INJ 4 MG/2 ML VIAL IV PUSH (20:54)
[2023-11-21] MEDS: MORPHINE SULFATE (*CRX) 2 MG/ML INJ IV PUSH (20:55)
[2023-11-21 20:57] LABS: Alanine Aminotransferase 11 U/L (14-59); Albumin Level 3.5 g/dL (3.4-5.0); Alkaline Phosphatase 128 U/L (46-116); Anion Gap 8 mmol/L (4-12); Aspartate Amino Transferase 11 U/L (15-37); Bilirubin,Total 0.7 mg/dL (0.00-1.00); Blood Urea Nitrogen 15 mg/dL (7-18); Calcium 9.1 mg/dL (8.5-10.1); Carbon Dioxide 30 mmol/L (21-32); Chloride 102 mmol/L (98-108); Estimated CRCL calculation 40 ml/min; Estimated Glomerular Filt Rate 36; Glucose 114 mg/dL (70-99); Magnesium 1.7 mg/dL (1.8-2.4); Osmolality Calculated 291 mOsm/kg (285-295); Potassium 2.8 mmol/L (3.5-5.1); Sodium 140 mmol/L (136-145)
[2023-11-21 20:58] LABS: Troponin I 13.1 ng/L (0.00-60.4)
--- NOTE | 2023-11-21 21:04 | PC.NURSE ---
patient states that she can not take the oral potassium tablets. I cant get them down . offered to break in half or to request powdered potassium. patient does not want either.
[2023-11-21] MEDS: KCL 20 MEQ/SW 100 ML 100 ML 50 MEQ IVPB (21:13)
[2023-11-21] MEDS: SPIRONOLACTONE 25 MG TABLET PO (21:14)
[2023-11-21] MEDS: MAGNESIUM OXIDE 400 MG TABLET PO (21:16)
[2023-11-21 21:26] VITALS: BP 172/112; PULSE 66; RESP 13; O2SAT 96
--- NOTE | 2023-11-21 21:37 | PC.NURSE ---
Dr Bess notified that ct reports have resulted.
--- NOTE | 2023-11-21 21:42 | PC.NURSE ---
patient currently resting on stretcher. IV potassium infusing to left wrist with LR at TKO. currently denies any pain or issues with potassium infusion. offered blanket several times, refused. call light in reach.
--- NOTE | 2023-11-21 21:46 | PC.NURSE ---
Dr Bess was updated that patient refused potassium tablets.
[2023-11-21 22:02] VITALS: BP 191/86; PULSE 62; RESP 18; O2SAT 97
--- NOTE | 2023-11-21 22:02 | PC.NURSE ---
pt given warm blanket. lights dimmed updated on plan of care.
--- NOTE | 2023-11-21 22:38 | PC.NURSE ---
pt taken to bathroom
--- NOTE | 2023-11-21 22:42 | PC.NURSE ---
pt back in room resting comfortably. ice pack refilled
--- NOTE | 2023-11-21 23:00 | PC.NURSE ---
patient resting on stretcher. call light in reach. IV potassium continues to infuse. patient denies any issues with infusion
[2023-11-21 23:02] VITALS: BP 197/98; PULSE 61; RESP 13; O2SAT 97
--- NOTE | 2023-11-21 23:15 | PC.NURSE ---
pt does not want to be admitted for potassium level. states its always like this and not able to fix it. ERP informed potassium done. he would like to do repeat potassium. pt informed and said she would do one more lab stick and than she was leaving.
--- NOTE | 2023-11-21 23:20 | PC.NURSE ---
lab at the bedside
[2023-11-21 23:41] LABS: Potassium 2.5 mmol/L (3.5-5.1)
[2023-11-21 23:54] VITALS: BP 212/89; PULSE 81; RESP 14; O2SAT 98
== END 2023-11-22 00:04 | disposition left against medical advice (07) ==
PROVIDERS: Emergency Provider Internal Medicine Critical Care Medicine; PCP Family Medicine
DX: E87.6 Hypokalemia (principal); E83.42 Hypomagnesemia; M06.9 Rheumatoid arthritis, unspecified; I12.9 Hypertensive chronic kidney disease with stage 1 through stage 4 chronic kidney disease, or unspecified chronic kidney disease; N18.9 Chronic kidney disease, unspecified
CPT/HCPCS: 36415; 74176; 80053; 81001; 83605; 83735; 84132; 84484; 85025; 93005; 96361; 96365; 96366; 96375; 99284; A9270; J2270; J2405; J3480; J7120

== ENCOUNTER 2023-11-27 08:05 | Outpatient (CLI) | payer MEDICARE, SELFPAY ==
[2023-11-27 09:14] LABS: Add Urine Microscopic? YES; Appearance Urine Clear (Clear); Bilirubin Urine Negative (Negative); Blood Urine Negative (Negative); Color Urine Light Yellow (Yellow); Glucose Urine UA Negative (Negative); Ketones Urine Negative (Negative); Leukocyte Esterase Ur 2+ (Negative); Nitrate Urine Negative (Negative); Protein Urine Negative (Negative); Specific Grav Ur 1.015 (1.010-1.020); Urobilinogen Urine 0.2 mg/dL (0.2-1.0)
[2023-11-27 09:21] LABS: Bacteria Urine Trace /hpf; RBC Urine None seen /hpf (0-2); Squamous Epithelial Cell Urine Few /hpf (Few)
[2023-11-27 13:11] LABS: Potassium Urine Random 3.3 mmol/L (12-62)
[2023-11-27 14:20] LABS: Albumin Level 3.5 g/dL (3.4-5.0); Anion Gap 8 mmol/L (4-12); Blood Urea Nitrogen 10 mg/dL (7-18); Carbon Dioxide 31 mmol/L (21-32); Chloride 101 mmol/L (98-108); Estimated Glomerular Filt Rate 49; Glucose 97 mg/dL (70-99); Magnesium 1.4 mg/dL (1.8-2.4); Osmolality Calculated 289 mOsm/kg (285-295); Phosphorus 3.8 mg/dL (2.6-4.7); Potassium 3.4 mmol/L (3.5-5.1); Sodium 140 mmol/L (136-145); Thyroid Stimulating Hormone 0.83 uIU/mL (0.36-3.74)
[2023-11-30 06:18] LABS: T4 Thyroxine 10.3 mcg/dL (5.1-11.9)
[2023-11-30 16:28] LABS: Osmolality, Urine 501 mOsm/kg (50-1200)
[2023-12-01 13:52] LABS: Reference Lab Test Name MG/CREAT RANDOM UR
[2023-12-08 14:22] LABS: Reference Lab Test Name CLORIDE RANDOM URINE
== END 2023-11-27 08:06 | disposition home or self-care (01) ==
LOC: CHSLAB 08:08
PROVIDERS: PCP Family Medicine; Visit Provider Internal Medicine Nephrology
DX: E87.6 Hypokalemia (principal); R30.0 Dysuria; E03.9 Hypothyroidism, unspecified
CPT/HCPCS: 36415; 80069; 81001; 82436; 82570; 83735; 83930; 83935; 84133; 84436; 84443; 87086; 87088

== ENCOUNTER 2024-03-30 11:33 | Emergency (ER) | payer MEDICARE, SELFPAY ==
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
[2024-03-30 11:38] VITALS: BP 218/98; PULSE 525; RESP 14; TEMP 37.2; O2SAT 100
[2024-03-30 12:12] VITALS: BP 214/109; PULSE 58; RESP 21; O2SAT 100
[2024-03-30 12:18] VITALS: BP 214/109; PULSE 65; RESP 19; O2SAT 100
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
== END 2024-03-30 14:50 | disposition home or self-care (01) ==
PROVIDERS: Emergency Provider Preventive Medicine Aerospace Medicine; PCP Family Medicine
DX: S00.03XA Contusion of scalp, initial encounter (principal); I10 Essential (primary) hypertension; M06.9 Rheumatoid arthritis, unspecified; M19.012 Primary osteoarthritis, left shoulder; Z96.659 Presence of unspecified artificial knee joint; V49.9XXA Car occupant (driver) (passenger) injured in unspecified traffic accident, initial encounter
CPT/HCPCS: 70450; 99284

== ENCOUNTER 2024-04-08 16:05 | Outpatient (CLI) | payer MEDICARE, SELFPAY ==
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
--- OUTSIDE RECORDS SUMMARY | 2024-04-08 16:09 | XMS_ITS | Patient Health Summary ---
Author Organization [facility] Address [address] [place] [address] Care Team Providers Care Senior Windows Engineer Name Role Phone Rosalba Pascual MD Primary Care Provider [phone] Note from [facility],non-owned Affiliates and Associated Physician Practices is amultiple site organization consisting of ambulatory clinics and hospital sitesin [place], [place], [place] and [place]. This disclosure is being madepursuant to the Care Everywhere program and may not contain all information available regarding this patient. Last updated 17.[facility] Allergies * Latex * Sulfa Drugs * Sulfa Drugs(Urticaria) -Medium Criticality Medications * Be aware that medications may not be up to date on this document. Alwaysverify current medications with the patient. * fexofenadine (VALENTIN) 180 MG tablet Take 180 mg by mouth daily. * sertraline (ZOLOFT) 25 MG tablet Take 25 mg by mouth daily. * acetaminophen (TYLENOL) 325 MG tablet(Started 07/14/2010) Take 2 Tabs by mouth every 4 hours as needed for Fever and Pain. Maximum allowable Acetaminophen amount = 4 Grams (4000 mg) / 24 hours. * Atenolol (AMILORIDE PO) * DILTIAZEM HCL ER PO * clobetasol (OLUX) 0.05 %(Started 04/13/2017) Apply to affected area 2 times daily Social History Tobacco Use Types Packs/Day Years Used Date Smoking Tobacco: Never Alcohol Use Standard Drinks/Week Comments No 0 (1 standard drink = 0.6 oz pur e alcohol) Sex and Gender Information Value Date Recorded Sex Assigned at Not on file Gender Identity Not on file Sexual Orientation Not on file Last Filed Vital Signs Vital Sign Reading Time Taken Comments Blood Pressure 132/90 04/13/2017 10:33 AM FOUNDRY METALLURGIST Pulse 67 04/13/2017 10:33 AM FOUNDRY METALLURGIST Temperature 37.3 ??C (99.1 ??F) 04/13/2017 10:[address] Respiratory Rate 18 07/14/2010 7:22 AM CDT Oxygen Saturation 96% 07/14/2010 7:22 AM CDT Inhaled Oxygen Concentration - - Weight 99.8 kg (220 lb) 04/13/2017 10:33 AM FOUNDRY METALLURGIST Height 167.6 cm (5' 6 ) 04/13/2017 10:33 AM FOUNDRY METALLURGIST Body Mass Index 35.51 04/13/2017 10:33 AM FOUNDRY METALLURGIST Procedures * CULTURE MRSA(Performed 11/17/2013) * CARDIAC EKG ORDER(Performed 07/15/2010) * CARDIAC RHYTHM STRIP ORDER(Performed 07/15/2010) * CARDIAC EKG ORDER(Performed 07/13/2010) * TROPONIN I(Performed 07/13/2010) * BASIC METABOLIC PANEL (CALCIUM TOTAL)(Performed 07/13/2010) * TROPONIN I(Performed 07/13/2010) * URINALYSIS REFLEX TO MICROSCOPIC NO CULTURE(Performed 07/12/2010) * CULTURE URINE(Performed 07/12/2010) * XR CHEST 1VW PORTABLE(Performed 07/12/2010) Performed for Dizzy * PTT(Performed 07/12/2010) * PT-INR(Performed 07/12/2010) * TROPONIN I(Performed 07/12/2010) * COMPREHENSIVE METABOLIC PANEL(Performed 07/12/2010) * CBC W MANUAL DIFFERENTIAL(Performed 07/12/2010) Results * CULTURE MRSA (11/17/2013 10:52 AM CDT) Culture MRSA Screen No Growth of Methicillin Resistant Staphylococcus aureus. [facility] Nasopharyngeal 11/17/2013 10 :52 AM CDT 11/17/2013 1:40 PM CDT Narrative [facility] - 11/18/2013 3:42 PM CDT AndersonSpecimen#[id number] Dodge Loc/Rm/Bed: OP SGPREOP// Historical Provider LAB - MICROBIOLOG Y ORDERABLES Performing Organization Address City/[facility]/ZIP Co de Phone Number [facility] [address] [phone] * CARDIAC EKG ORDER (07/15/2010 1:50 PM CDT) Only the most recent of2 resultswithin the time period is included. Narrative Procedure Note Document, Scanned - 07/15/2010 9:21 AM CDT Scanned Document CARDIAC SERVICES ORD ERABLES * CARDIAC RHYTHM STRIP ORDER (07/15/2010 1:50 PM CDT) Narrative Procedure Note Document, Scanned - 07/15/2010 9:21 AM CDT Scanned Document CARDIAC SERVICES ORD ERABLES * TROPONIN I (07/13/2010 7:35 AM CDT) Only the most recent of3 resultswithin the time period is included. Pathologist [facility] Troponin I <0.10 SEE BELOW ng/ml [facility] Comment: Normal ? <0.10 [place] Zone ??0.10-0.99 Positive ?? >=1.00 SERUM OR PLASMA SPECIMEN / Unknown 07/13/2010 7:35 AM CDT 07/13/2010 7:46 AM CDT Breanne Lilly DO LAB - CHEMISTRY ORDE [place] [facility] [address] [place] [address] * (ABNORMAL) BASIC METABOLIC PANEL (CALCIUM TOTAL) (07/13/2010 7:35 AM CDT) Pathologist [facility] BUN 20(H) 7.0 - 17.0 mg/dl [facility] Sodium 139 137 - 145 mmol/L [facility] Potassium 4.6 3.6 - 5.0 mmol/L [facility] Chloride 109(H) 98.0 - 107.0 mmol/L [facility] CO2 25 22.0 - 30.0 mEq/L [facility] Anion Gap 5.1 [facility] Glucose 89 70 - 105 mg/dl [facility] Creatinine 1.0 0.52 - 1.05 mg/dl [facility] Calcium 9.0 8.4 - 10.2 mg/dl [facility] eGFR by MDRD 58.22 ml/min/1.7 3m2 [facility] BLOOD SPECIMEN / Unknown 07/13/2010 7:35 AM CDT 07/13/2010 7:46 AM CDT Breanne Lilly DO LAB - CHEMISTRY ORDE RABLES Performing Organization Address City/[facility] Co de Phone Number [facility] [address] [place] [address] * (ABNORMAL) URINALYSIS ROUTINE AUTO (07/12/2010 7:20 PM CDT) Color UA YELLOW [facility] Character UA CLOUDY [facility] Specific Stevenson UA 1.014 1.005 - 1.0300 [facility] pH UA 5.0 4.6 - 8.0 pH Units [facility] Leukocyte UA MODERATE Negative /ul [facility] Nitrite UA NEGATIVE Negative [facility] Protein UA NEGATIVE Negative mg/dl [facility] Glucose UA NEGATIVE Normal mg/dl [facility] Ketone UA NEGATIVE Negative mg/dl [facility] Urobilinogen UA 0.2 Normal Janie Units [facility] Bilirubin UA NEGATIVE Negative mg/dl [facility] Blood UA NEGATIVE Negative /ul [facility] WBC UA 20-50(H) <5 /HPF [facility] RBC UA 0-2 <5 /HPF [facility] Epithelial Cell UA 10-20(H) <5 /HPF [facility] Casts UA <2 <2 /LPF [facility] Bacteria UA FEW [facility] URINE SPECIMEN OBTAINED BY CLEAN CATCH PROCEDURE / Unknown 07/12/2010 7:20 PM CDT 07/12/2010 7:20 PM CDT Breanne Lilly DO LAB - URINALYSIS ORD ERABLES Performing Organization Address City/[facility]/ZIP Co de Phone Number [facility] [address] [place] [address] * CULTURE URINE (07/12/2010 7:20 PM CDT) Result [facility] Comment: Final CULTURE No Growth (<1000 CFU/mL) URINE SPECIMEN OBTAINED BY CLEAN CATCH PROCEDURE / Unknown 07/12/2010 7:20 PM CDT 07/12/2010 7:20 PM CDT Narrative Resulting Agency Comment Performed By [facility];[address];[place] [address] Breanne Lilly DO LAB - MICROBIOLOGY O RDERABLES Performing Organization Address [facility] Co de Phone Number [facility] [address] [place] [address] * XR CHEST 1VW PORTABLE (07/12/2010 4:17 PM CDT) Anatomical Region Laterality Modality Chest Radiographic Tammie ging 07/12/2010 4:22 PM CDT Impressions 07/12/2010 4:22 PM CDT No acute cardiopulmonary disease Narrative 07/12/2010 4:22 PM CDT Portable AP chest ?? Indication: Dizziness, difficulty breathing Comparison: None available Findings: The lungs are clear. There is cardiomegaly. No evidence of pneumothorax or pleural effusion. Procedure Note Stefan Mackay MD - 07/12/2010 Portable AP chest Indication: Dizziness, difficulty breathing Comparison: None available Findings: The lungs are clear. There is cardiomegaly. No evidence of pneumothorax or pleural effusion. IMPRESSION No acute cardiopulmonary disease Breanne Lilly DO DIAGNOSTIC IMAGING O RDERABLES * PTT (07/12/2010 3:56 PM CDT) PTT 27.8 24.0 - 32.0 seconds [facility] BLOOD SPECIMEN / Unknown 07/12/2010 3:56 PM CDT 07/12/2010 3:56 PM CDT Narrative Authorizing Provider Result Janeth Lilly DO LAB - COAGULATION OR DERABLES Performing Organization Address City/[facility] Co de Phone Number [facility] [address] [place] [address] * PT-INR (07/12/2010 3:56 PM CDT) PT 10.9 9.4 - 11.2 seconds [facility] INR 1.0 SEE BELOW [facility] Comment: 0.9-1.1 Normal 2.0-3.0 Conventional 2.5-3.5 Intensive BLOOD SPECIMEN / Unknown 07/12/2010 3:56 PM CDT 07/12/2010 3:56 PM CDT Breanne Lilly DO LAB - COAGULATION OR DERABLES [facility] [address] [place] [id number] * (ABNORMAL) CBC W MANUAL DIFFERENTIAL (07/12/2010 3:56 PM CDT) WBC 11.9(H) 4.5 - 11.0 1000/mm3 [facility] RBC 3.93(L) 4.2 - 5.4 10X6 [facility] Hemoglobin 12.4 12.0 - 16.0 gm/dl [facility] Hematocrit 35.7(L) 36.0 - 48.0 % [facility] MCV 90.8 80.0 - 99.0 fl [facility] MCH 31.6(H) 25.0 - 31.0 pg [facility] MCHC 34.7 32.0 - 36.0 gm/dl [facility] RDW 12.6 11.5 - 14.5 % [facility] Platelet Count 306 130.0 - 400.0 1000/mm3 [facility] Comment Manual Diff Done [facility] Neutrophils % Manual 74(H) 40.0 - 70.0 % [facility] Band % Manual 1 0.0 - 5.0 % [facility] Lymphocytes % Manual 16(L) 22.0 - 40.0 % [facility] Monocytes % Manual 7 2.0 - 10.0 % [facility] Eosinophils % Manual 2 0.0 - 6.0 % [facility] RBC Morphology Normal [facility] BLOOD SPECIMEN / Unknown 07/12/2010 3:56 PM CDT 07/12/2010 3:56 PM CDT Breanne Lilly DO LAB - HEMATOLOGY ORD ERABLES Performing Organization Address [facility] Co de Phone Number [facility] [address] [place] [address] * (ABNORMAL) COMPREHENSIVE METABOLIC PANEL (07/12/2010 3:56 PM CDT) BUN 25(H) 7.0 - 17.0 mg/dl [facility] Sodium 141 137 - 145 mmol/L [facility] Potassium 4.1 3.6 - 5.0 mmol/L [facility] Chloride 103 98.0 - 107.0 mmol/L [facility] Glucose 89 70 - 105 mg/dl [facility] Creatinine 1.5(H) 0.52 - 1.05 mg/dl [facility] AST 21 14.0 - 36.0 U/L [facility] Alkaline Phosphatase 88 38.0 - 126.0 U/L [facility] Calcium 9.5 8.4 - 10.2 mg/dl [facility] Bilirubin Total <0.1(L) 0.2 - 1.3 mg/dl [facility] Albumin 4.3 3.5 - 5.0 gm/dl [facility] Protein Total 7.1 6.3 - 8.2 gm/dl [facility] CO2 24 22.0 - 30.0 mEq/L [facility] ALT 22 9.0 - 52.0 U/L [facility] eGFR by MDRD 36.47 ml/min/1.7 3m2 [facility] BLOOD SPECIMEN / Unknown 07/12/2010 3:56 PM CDT 07/12/2010 3:56 PM CDT Breanne Lilly DO LAB - CHEMISTRY ORDE RABSAYRA [facility] [address] [place] [address] Care Teams Senior Windows Engineer Relationship Specialty Start Date End Date Rosalba Pascual MD [address] [place] [address] PCP - General 09/18/17
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
--- OUTSIDE RECORDS SUMMARY | 2024-04-08 16:09 | XMS_ITS | Referral Summary ---
Author Organization [facility] Address [address] [place] [address] Care Team Providers Care Pharmacy Technician Infusion Name Role Phone Rosalba Pascual MD Primary Care Provider [phone] Source Comments [facility],non-owned Affiliates and Associated Physician Practices is amultiple site organization consisting of ambulatory clinics and hospital sitesin [place], [place], [place] and [place]. This disclosure is being madepursuant to the Care Everywhere program and may not contain all information available regarding this patient. Last updated 17.[facility] Allergies Active Allergy Reactions Criticality Noted Date Comments Latex 07/12/2010 Sulfa Drugs 07/12/2010 Sulfa Drugs Urticaria Medium 04/13/2017 Medications * Be aware that medications may not be up to date on this document. Alwaysverify current medications with the patient. Medication Sig Dispensed Refills Start Date End Date Status fexofenadine (VALENTIN) 180 MG tablet Take 180 mg by mouth daily. Active sertraline (ZOLOFT) 25 MG tablet Take 25 mg by mouth daily. Active acetaminophen (TYLENOL) 325 MG tablet Take 2 Tabs by mouth every 4 hours as needed for Fever and Pain. Maximum allowable Acetaminophen amount = 4 Grams (4000 mg) / 24 hours. 07/14/2010 Active Atenolol (AMILORIDE PO) Active DILTIAZEM HCL ER PO Activ e clobetasol (OLUX) 0.05 % Apply to affected area 2 times daily 100 g 04/13/2017 Active Social History Tobacco Use Types Packs/Day Years [...] Comments Blood Pressure 132/90 04/13/2017 10:33 AM PEACE OFFICER Pulse 67 04/13/2017 10:33 AM PEACE OFFICER Temperature 37.3 ??C (99.1 ??F) 04/13/2017 10:[address] Respiratory Rate 18 07/14/2010 7:22 AM CDT Oxygen Saturation 96% 07/14/2010 7:22 AM CDT Inhaled Oxygen Concentration - - Weight 99.8 kg (220 lb) 04/13/2017 10:33 AM PEACE OFFICER Height 167.6 cm (5' 6 ) 04/13/2017 10:33 AM PEACE OFFICER Body Mass Index 35.51 04/13/2017 10:33 AM PEACE OFFICER Plan of Treatment Not on file Procedures Procedure Name Priority Date/Time Associated Diagnosis Comments BASIC METABOLIC PANEL (CALCIUM TOTAL) Routine 07/13/2010 7:35 AM CDT from Last 3 Months or Most Recently Relevant to Health Maintenance Results * (ABNORMAL) BASIC METABOLIC PANEL (CALCIUM TOTAL) (07/13/2010 7:35 AM CDT) BUN 20(H) 7.0 - 17.0 mg/dl [facility] Sodium 139 137 - 145 mmol/L [facility] Potassium 4.6 3.6 - 5.0 mmol/L [facility] Chloride 109(H) 98.0 - 107.0 mmol/L [facility] CO2 25 22.0 - 30.0 mEq/L [facility] Anion Gap 5.1 [facility] Glucose 89 70 - 105 mg/dl [facility] Creatinine 1.0 0.52 - 1.05 mg/dl [facility] Calcium 9.0 8.4 - 10.2 mg/dl [facility] eGFR by MDRD 58.22 ml/min/1.7 3m2 [facility] BLOOD SPECIMEN / Unknown 07/13/2010 7:35 AM CDT 07/13/2010 7:46 AM CDT Breanne Lilly DO LAB - CHEMISTRY SHRUTHI TUBBS [facility] [address] [place] [address] from Last 3 Months or Most Recently Relevant to Health Maintenance Advance Directives * Full Code (Latest Code Status on File) Date Activated Date Inactivated Comments 07/12/2010 8:26 PM 07/14/2010 11:32 PM Care Teams Pharmacy Technician Infusion Relationship Specialty Start Date End Date Rosalba Pascual MD [address] [place] [address] PCP - General 09/18/17
--- OUTSIDE RECORDS SUMMARY | 2024-04-08 16:09 | XMS_ITS | Clinical Summary ---
Author Organization [facility] Address [address] [place] [address] Care Team Providers Care Raisin Separator Operator Name Role Phone Rosalba Pascual MD Primary Care Provider [phone] Source Comments [facility],non-owned Affiliates and Associated Physician Practices is amultiple site organization consisting of ambulatory clinics and hospital sitesin [place], [place], [place] and [place]. This disclosure is being madepursuant to the Care Everywhere program and may not contain all information available regarding this patient. Last updated 17.[facility] Allergies Active Allergy Reactions Criticality Noted [...] Comments Blood Pressure 132/90 04/13/2017 10:33 AM GATE KEEPER Pulse 67 04/13/2017 10:33 AM GATE KEEPER Temperature 37.3 ??C (99.1 ??F) 04/13/2017 10:[address] Respiratory Rate 18 07/14/2010 7:22 AM CDT Oxygen Saturation 96% 07/14/2010 7:22 AM CDT Inhaled Oxygen Concentration - - Weight 99.8 kg (220 lb) 04/13/2017 10:33 AM GATE KEEPER Height 167.6 cm (5' 6 ) 04/13/2017 10:33 AM GATE KEEPER Body Mass Index 35.51 04/13/2017 10:33 AM GATE KEEPER Plan of Treatment Health Maintenance Due Date Last Done Comments BONE DENSITY TESTING 1960 COLOGUARD (AGES 45-75) - COL ON CA SCREENING 1960 COLON MONITORING 1960 COLONOSCOPY - COLON CA SCREENING 1960 CT COLONOGRAPHY - COLON CA SCREENING 1960 Colorectal Cancer Screening 1960 FIT - COLON CA SCREENING 1960 FLEX SIG - COLON CA SCREENING 1960 LIPID TESTING 1960 MAMMOGRAM 1960 HEPATITIS C SCREENING 02/03/1976 DTAP/TDAP/TD VACCINES (1 - Tdap) 1977 PNEUMOCOCCAL VACCINE 50+ (1 of 1 - PCV) 02/08/2008 ZOSTER VACCINE (1 of 2) 02/08/2008 SCREENING FOR DIABETES 04/13/2017 1, 07/12/2010 COVID-19 VACCINE ( - 2023-2 5 season) 2023 INFLUENZA VACCINE (#1) 2023 DEPRESSION SCREENING 03/12/2024 Respiratory Syncytial Virus (RSV) Vaccine Pt: or over 60 yrs (1 - 1-dose 75+ series) 2033 HEPATITIS B VACCINE Aged Out No longe r eligible based on patient's age to complete this topic HIB VACCINE Aged Out No longer eligi ble based on patient's age to complete this topic HPV VACCINE Aged Out No longer eligi ble based on patient's age to complete this topic MENINGOCOCCAL (Group B) VACCINE Aged Out No longer eligible b ased on patient's age to complete this topic MENINGOCOCCAL VACCINE Aged Out No richard chance eligible based on patient's age to complete this topic Procedures Procedure Name Priority Date/Time Associated Diagnosis Comments BASIC METABOLIC PANEL (CALCIUM TOTAL) Routine 07/13/2010 7:35 AM CDT from Last 3 Months or Most Recently Relevant to Health Maintenance Results * (ABNORMAL) BASIC METABOLIC PANEL (CALCIUM TOTAL) (07/13/2010 7:35 AM CDT) BUN 20(H) 7.0 - 17.0 mg/dl [facility] Sodium 139 137 - 145 mmol/L [facility] Potassium 4.6 3.6 - 5.0 mmol/L [facility] Chloride 109(H) 98.0 - 107.0 mmol/L [facility] CO2 25 22.0 - 30.0 mEq/L [facility] Anion Gap 5.1 [facility] Glucose 89 70 - 105 mg/dl [facility] Creatinine 1.0 0.52 - 1.05 mg/dl [facility] Calcium 9.0 8.4 - 10.2 mg/dl [facility] eGFR by MDRD 58.22 ml/min/1.7 3m2 [facility] BLOOD SPECIMEN / Unknown 07/13/2010 7:35 AM CDT 07/13/2010 7:46 AM CDT Breanne Lilly DO LAB - CHEMISTRY SHRUTHI TUBBS [facility] [address] [place] [address] from Last 3 Months or Most Recently Relevant to Health Maintenance Advance Directives * Full Code (Latest Code Status on File) Date Activated Date Inactivated Comments 07/12/2010 8:26 PM 07/14/2010 11:32 PM Care Teams Raisin Separator Operator Relationship Specialty Start Date End Date Rosalba Pascual MD [address] [place] [address] PCP - General 09/18/17
[2024-04-08 16:31] LABS: Add Urine Microscopic? NO; Appearance Urine Clear (Clear); Bilirubin Urine Negative (Negative); Blood Urine Negative (Negative); Color Urine Light Yellow (Yellow); Glucose Urine UA Negative (Negative); Ketones Urine Negative (Negative); Leukocyte Esterase Ur Negative (Negative); Nitrate Urine Negative (Negative); Protein Urine Negative (Negative); Urobilinogen Urine 0.2 mg/dL (0.2-1.0)
[2024-04-08 16:35] LABS: Creatinine Urine 60.81 mg/dL (40-278); Total Protein Urine Random 23.8 mg/dL (0.0-11.9); Ur Ttl Prot Creatinine Ratio 0.39 mg/mg (0-0.20)
[2024-04-08 16:54] LABS: Alanine Aminotransferase 19 U/L (14-59); Albumin Level 4.1 g/dL (3.4-5.0); Alkaline Phosphatase 153 U/L (46-116); Anion Gap 9 mmol/L (4-12); Aspartate Amino Transferase 16 U/L (15-37); Bilirubin,Total 0.9 mg/dL (0.00-1.00); Blood Urea Nitrogen 15 mg/dL (7-18); Calcium 9.4 mg/dL (8.5-10.1); Carbon Dioxide 26 mmol/L (21-32); Chloride 104 mmol/L (98-108); Estimated Glomerular Filt Rate 55; Glucose 90 mg/dL (70-99); Magnesium 1.8 mg/dL (1.8-2.4); Osmolality Calculated 288 mOsm/kg (285-295); Potassium 4.4 mmol/L (3.5-5.1); Sodium 139 mmol/L (136-145); Total Protein 7.1 g/dL (6.4-8.2)
[2024-04-10 16:29] LABS: Osmolality, Urine 495 mOsm/kg (50-1200)
== END 2024-04-08 16:06 | disposition home or self-care (01) ==
PROVIDERS: PCP Family Medicine; Visit Provider Internal Medicine Nephrology
DX: E87.6 Hypokalemia (principal); N18.31 Chronic kidney disease, stage 3a; E83.42 Hypomagnesemia
CPT/HCPCS: 36415; 80053; 81003; 82570; 83735; 83930; 83935; 84156

== ENCOUNTER 2024-05-04 12:04 | Outpatient (CLI) | payer MEDICARE, SELFPAY ==
--- NOTE | ~2024-05-04 | MR_ITS ---
EXAMINATION: MR brain/brain stem wo con DATE: 05/04/2024 13:15 INDICATION: Dizziness and giddiness. TECHNIQUE: Magnetic resonance imaging (MRI) of the brain and brainstem was performed without intraven ous contrast. COMPARISON: Head CT 03/30/2024 FINDINGS: There are widespread punctate foci of old microhemorrhage throughout the brain including th e cerebrum, deep ko nuclei, cerebellum, and brainstem. There are scattered areas of nonspecific inc reased T2-weighted signal intensity in the cerebral white matter. There are old infarcts in the kwadwo and bilateral thalami. The ventricles are normal in size. The orbits are normal. There is mild mucosa l thickening in the ethmoid sinuses. The mastoid air cells are normal. IMPRESSION: 1. Old infarcts in the kwadwo and bilateral thalami. 2. Moderate cerebral white matter disease and widespread foci of old microhemorrhage in the brain, co nsistent with chronic hypertensive encephalopathy. Reviewed, dictated and finalized at location A. [facility] IMPRESSION: 1. Old infarcts in the kwadwo and bilateral thalami. 2. Moderate cerebral white matter disease and widespread foci of old microhemor rhage in the brain, consistent with chronic hypertensive encephalopathy.
--- OUTSIDE RECORDS SUMMARY | 2024-05-04 12:10 | XMS_ITS | Patient Health Summary ---
Author Organization [facility] Address [address] [place] [address] Care Team Providers Care Forder Operator Name Role Phone Rosalba Pascual MD Primary Care Provider [phone] Note from [facility],non-owned Affiliates and Associated Physician Practices is amultiple site organization consisting of ambulatory clinics and hospital sitesin [place], [place], [place] and [place]. This disclosure is being madepursuant to the Care Everywhere program and may not contain all information available regarding this patient. Last updated 17.[facility] Allergies * Latex * Sulfa Drugs * [...] Comments Blood Pressure 132/90 04/13/2017 10:33 AM RENAL NURSE Pulse 67 04/13/2017 10:33 AM RENAL NURSE Temperature 37.3 C (99.1 F) 04/13/2017 10:33 AM RENAL NURSE Respiratory Rate 18 07/14/2010 7:22 AM CDT Oxygen Saturation 96% 07/14/2010 7:22 AM CDT Inhaled Oxygen Concentration - - Weight 99.8 kg (220 lb) 04/13/2017 10:33 AM RENAL NURSE Height 167.6 cm (5' 6 ) 04/13/2017 10:33 AM RENAL NURSE Body Mass Index 35.51 04/13/2017 10:33 AM RENAL NURSE Procedures * CULTURE MRSA(Performed 11/17/2013) * CARDIAC [...] No Growth of Methicillin Resistant Staphylococcus aureus. [facility] Nasopharyngeal 11/17/2013 10 :52 AM CDT 11/17/2013 1:40 PM CDT Narrative [facility] - 11/18/2013 3:42 PM CDT AndersonSpecimen#[id number] [place] Loc/Rm/Bed: OP SGPREOP// Historical Provider LAB - MICROBIOLOG Y ORDERABLES Performing Organization Address City/[facility]/ZIP Co de Phone Number [address] [phone] * CARDIAC EKG ORDER (07/15/2010 1:50 PM [...] of3 resultswithin the time period is included. Troponin I <0.10 SEE BELOW ng/ml [facility] Comment: Normal <0.10 [place] Zone 0.10-0.99 Positive >=1.00 SERUM OR PLASMA SPECIMEN / Unknown 07/13/2010 7:35 AM CDT 07/13/2010 7:46 AM CDT Breanne Lilly DO LAB - CHEMISTRY ORDE ARLEY Performing Organization Address City/[facility]/ZIP Co de Phone Number [facility] [address] [place] [address] * (ABNORMAL) BASIC METABOLIC PANEL (CALCIUM TOTAL) (07/13/2010 7:35 AM CDT) BUN 20(H) 7.0 - 17.0 mg/dl [facility] Sodium 139 137 - 145 mmol/L [facility] Potassium 4.6 3.6 - 5.0 mmol/L [facility] Chloride 109(H) 98.0 - 107.0 mmol/L [facility] CO2 25 22.0 - 30.0 mEq/L [facility] Anion Gap 5.1 [facility] Glucose 89 70 - 105 mg/dl [facility] Creatinine 1.0 0.52 - 1.05 mg/dl [facility] Calcium 9.0 8.4 - 10.2 mg/dl [facility] eGFR by MDRD 58.22 ml/min/1.7 3m2 [facility] BLOOD SPECIMEN / Unknown 07/13/2010 7:35 AM CDT 07/13/2010 7:46 AM CDT Breanne Lilly DO LAB - CHEMISTRY ORDE RABLES Performing Organization Address [facility] Co de Phone Number [facility] [address] [place] [address] * (ABNORMAL) URINALYSIS ROUTINE AUTO (07/12/2010 7:20 PM CDT) Color UA YELLOW [facility] Character UA CLOUDY [facility] Specific [place] UA 1.014 1.005 - 1.0300 [facility] pH UA 5.0 4.6 - 8.0 pH Units [facility] Leukocyte UA MODERATE Negative /ul [facility] Nitrite UA NEGATIVE Negative [facility] Protein UA NEGATIVE Negative mg/dl [facility] Glucose UA NEGATIVE Normal mg/dl [facility] Ketone UA NEGATIVE Negative mg/dl [facility] Urobilinogen UA 0.2 Normal Janie Units [facility] Bilirubin UA NEGATIVE Negative mg/dl [facility] Blood UA NEGATIVE Negative /ul [facility] WBC UA 20-50(H) <5 /HPF [facility] RBC UA 0-2 <5 /HPF [facility] Epithelial Cell UA 10-20(H) <5 /HPF [facility] Casts UA <2 <2 /LPF [facility] Bacteria UA FEW [facility] URINE SPECIMEN OBTAINED BY CLEAN CATCH PROCEDURE / Unknown 07/12/2010 7:20 PM CDT 07/12/2010 7:20 PM CDT Breanne Lilly DO LAB - URINALYSIS ORD ERABLES Performing Organization Address City/[facility] Co de Phone Number [facility] [address] [place] [address] * CULTURE URINE (07/12/2010 7:20 PM CDT) Result [facility] Comment: Final CULTURE No Growth (<1000 CFU/mL) URINE SPECIMEN OBTAINED BY CLEAN CATCH PROCEDURE / Unknown 07/12/2010 7:20 PM CDT 07/12/2010 7:20 PM CDT Narrative Resulting Agency Comment Performed By [facility];[address];[place] [address] Breanne Lilly DO LAB - MICROBIOLOGY O RDERABLES Performing Organization Address [facility] Co de Phone Number [facility] [address] [place] [address] * XR CHEST 1VW PORTABLE (07/12/2010 4:17 PM CDT) Anatomical Region Laterality Modality Chest Radiographic Tammie ging 07/12/2010 4:22 PM CDT Impressions 07/12/2010 4:22 PM CDT No acute cardiopulmonary disease Narrative 07/12/2010 4:22 PM CDT Portable AP chest Indication: Dizziness, difficulty breathing [...] CDT) PTT 27.8 24.0 - 32.0 seconds [facility] BLOOD SPECIMEN / Unknown 07/12/2010 3:56 PM CDT 07/12/2010 3:56 PM CDT Breanne Lilly DO LAB - COAGULATION OR DERABLES Performing Organization Address [facility] Co de Phone Number [facility] [address] [place] [address] * PT-INR (07/12/2010 3:56 PM CDT) PT 10.9 9.4 - 11.2 seconds [facility] INR 1.0 SEE BELOW [facility] Comment: 0.9-1.1 Normal 2.0-3.0 Conventional 2.5-3.5 Intensive BLOOD SPECIMEN / Unknown 07/12/2010 3:56 PM CDT 07/12/2010 3:56 PM CDT Breanne Lilly DO LAB - COAGULATION OR DERABLES Performing Organization Address City/State/[facility] Co de Phone Number [facility] [address] [place] [address] * (ABNORMAL) CBC W MANUAL DIFFERENTIAL (07/12/2010 3:56 PM CDT) WBC 11.9(H) 4.5 - 11.0 1000/mm3 [facility] RBC 3.93(L) 4.2 - 5.4 10X6 [facility] Hemoglobin 12.4 12.0 - 16.0 gm/dl [facility] Hematocrit 35.7(L) 36.0 - 48.0 % [facility] MCV 90.8 80.0 - 99.0 fl [facility] MCH 31.6(H) 25.0 - 31.0 pg [facility] MCHC 34.7 32.0 - 36.0 gm/dl [facility] RDW 12.6 11.5 - 14.5 % [facility] Platelet Count 306 130.0 - 400.0 1000/mm3 [facility] Comment Manual Diff Done [facility] Neutrophils % Manual 74(H) 40.0 - 70.0 % [facility] Band % Manual 1 0.0 - 5.0 % [facility] Lymphocytes % Manual 16(L) 22.0 - 40.0 % [facility] Monocytes % Manual 7 2.0 - 10.0 % [facility] Eosinophils % Manual 2 0.0 - 6.0 % [facility] RBC Morphology Normal [facility] BLOOD SPECIMEN / Unknown 07/12/2010 3:56 PM CDT 07/12/2010 3:56 PM CDT Breanne J Lilly DO LAB - HEMATOLOGY ORD ERABLES Performing Organization Address [facility] Co de Phone Number [facility] [address] [place] [address] * (ABNORMAL) COMPREHENSIVE METABOLIC PANEL (07/12/2010 3:56 PM CDT) BUN 25(H) 7.0 - 17.0 mg/dl [facility] Sodium 141 137 - 145 mmol/L [facility] Potassium 4.1 3.6 - 5.0 mmol/L [facility] Chloride 103 98.0 - 107.0 mmol/L [facility] Glucose 89 70 - 105 mg/dl [facility] Creatinine 1.5(H) 0.52 - 1.05 mg/dl [facility] AST 21 14.0 - 36.0 U/L [facility] Alkaline Phosphatase 88 38.0 - 126.0 U/L [facility] Calcium 9.5 8.4 - 10.2 mg/dl [facility] Bilirubin Total <0.1(L) 0.2 - 1.3 mg/dl [facility] Albumin 4.3 3.5 - 5.0 gm/dl [facility] Protein Total 7.1 6.3 - 8.2 gm/dl [facility] CO2 24 22.0 - 30.0 mEq/L [facility] ALT 22 9.0 - 52.0 U/L [facility] eGFR by MDRD 36.47 ml/min/1.7 3m2 [facility] BLOOD SPECIMEN / Unknown 07/12/2010 3:56 PM CDT 07/12/2010 3:56 PM CDT Breanne Lilly DO LAB - CHEMISTRY SHRUTHI TUBBS Performing Organization Address [facility] Co de Phone Number [facility] [address] [place] [address] Care Teams Forder Operator Relationship Specialty Start Date End Date Rosalba Pascual MD [address] [place], [place] [id number] PCP - General 09/18/17
--- OUTSIDE RECORDS SUMMARY | 2024-05-04 12:10 | XMS_ITS | Clinical Summary ---
Author Organization [facility] Address [address] [place] [address] Care Team Providers Care Flight Control Specialist Name Role Phone Rosalba Pascual MD Primary Care Provider [phone] Source Comments [facility],non-owned Affiliates and Associated Physician Practices is amultiple site organization consisting of ambulatory clinics and hospital sitesin [place], [place], [place] and [place]. This disclosure is being madepursuant to the Care Everywhere program and may not contain all information available regarding this patient. Last updated 17.[facility] Allergies Active Allergy Reactions Criticality Noted [...] Comments Blood Pressure 132/90 04/13/2017 10:33 AM STATE TESTED NURSING ASSISTANT Pulse 67 04/13/2017 10:33 AM STATE TESTED NURSING ASSISTANT Temperature 37.3 C (99.1 F) 04/13/2017 10:33 AM STATE TESTED NURSING ASSISTANT Respiratory Rate 18 07/14/2010 7:22 AM CDT Oxygen Saturation 96% 07/14/2010 7:22 AM CDT Inhaled Oxygen Concentration - - Weight 99.8 kg (220 lb) 04/13/2017 10:33 AM STATE TESTED NURSING ASSISTANT Height 167.6 cm (5' 6 ) 04/13/2017 10:33 AM STATE TESTED NURSING ASSISTANT Body Mass Index 35.51 04/13/2017 10:33 AM STATE TESTED NURSING ASSISTANT Plan of Treatment Health Maintenance Due Date [...] FOR DIABETES 04/13/2017 1, 07/12/2010 COVID-19 VACCINE (1 - 2023-2 5 season) 2023 INFLUENZA VACCINE [...] Lilly DO LAB - CHEMISTRY SHRUTHI TUBBS [facility] [address] [place] [address] from Last 3 Months or Most Recently Relevant to Health Maintenance Advance Directives * Full Code (Latest Code Status on File) Date Activated Date Inactivated Comments 07/12/2010 8:26 PM 07/14/2010 11:32 PM Care Teams Flight Control Specialist Relationship Specialty Start Date End Date Rosalba Pascual MD [address] [place] [address] PCP - General 09/18/17
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
--- OUTSIDE RECORDS SUMMARY | 2024-05-04 12:10 | XMS_ITS | Referral Summary ---
Author Organization [facility] Address [address] [facility] [place] [address] Care Team Providers Care Product Examiner Name Role Phone Rosalba Pascual MD Primary Care Provider Source Comments [facility],non-owned Affiliates and Associated Physician Practices is amultiple site organization consisting of ambulatory clinics and hospital sitesin [place], [place], [place] and [place]. This disclosure is being madepursuant to the Care Everywhere program and may not contain all information available regarding this patient. Last updated 17.[facility] Allergies Active Allergy Reactions Criticality Noted Date [...] Comments Blood Pressure 132/90 04/13/2017 10:33 AM CYCLE ANALYST Pulse 67 04/13/2017 10:33 AM CYCLE ANALYST Temperature 37.3 C (99.1 F) 04/13/2017 10:33 AM CYCLE ANALYST Respiratory Rate 18 07/14/2010 7:22 AM CDT Oxygen Saturation 96% 07/14/2010 7:22 AM CDT Inhaled Oxygen Concentration - - Weight 99.8 kg (220 lb) 04/13/2017 10:33 AM CYCLE ANALYST Height 167.6 cm (5' 6 ) 04/13/2017 10:33 AM CYCLE ANALYST Body Mass Index 35.51 04/13/2017 10:33 AM CYCLE ANALYST Plan of Treatment Not on file Procedures Procedure Name Priority Date/Time Associated Diagnosis Comments BASIC METABOLIC PANEL (CALCIUM TOTAL) Routine 07/13/2010 7:35 AM CDT from Last 3 Months or Most Recently Relevant to Health Maintenance Results * (ABNORMAL) BASIC METABOLIC PANEL (CALCIUM TOTAL) (07/13/2010 7:35 AM CDT) BUN 20(H) 7.0 - 17.0 mg/dl [facility] Sodium 139 137 - 145 mmol/L [facility] Potassium 4.6 3.6 - 5.0 mmol/L [facility] Chloride 109(H) 98.0 - 107.0 mmol/L [facility] CO2 25 22.0 - 30.0 mEq/L [facility] Anion Gap 5.1 [facility] Glucose 89 70 - 105 mg/dl [facility] Creatinine 1.0 0.52 - 1.05 mg/dl [facility] Calcium 9.0 8.4 - 10.2 mg/dl [facility] eGFR by MDRD 58.22 ml/min/1.7 3m2 [facility] BLOOD SPECIMEN / Unknown 07/13/2010 7:35 AM CDT 07/13/2010 7:46 AM CDT Breanne Lilly DO LAB - CHEMISTRY SHRUTHI TUBBS [facility] [address] [place] [address] from Last 3 Months or Most Recently Relevant to Health Maintenance Advance Directives * Full Code (Latest Code Status on File) Date Activated Date Inactivated Comments 07/12/2010 8:26 PM 07/14/2010 11:32 PM Care Teams Product Examiner Relationship Specialty Start Date End Date Rosalba Pascual MD [address] [place] [address] PCP - General 09/18/17
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
== END 2024-05-04 12:05 | disposition home or self-care (01) ==
PROVIDERS: PCP Family Medicine; Visit Provider Family Medicine
DX: R42 Dizziness and giddiness (principal); R90.82 White matter disease, unspecified
CPT/HCPCS: 70551

== ENCOUNTER 2024-11-16 16:37 | Emergency (ER) | payer MEDICARE, SELFPAY ==
--- OUTSIDE RECORDS SUMMARY | 2023-12-05 05:15 | XMS_ITS ---
Author Organization [facility] Address [address] [place] [phone] Care Team Providers Care Counter Sales Representative Name Role Phone Rohan Hooker Unavailable Unavailable ANUM RAI Unavailable [phone] Allergies Allergen (clinical drug ingredient) Drug/Non Drug Allergy documented on EMR Reaction Allergy Type Onset Date Status Sulfacet-R Unknown Drug Allergy Active Medications Medication SIG (Take, Route, Frequency, Duration) Notes Start Date End Date Status Triamterene 50 MG 1 capsule Orally Once a day; Duration: 30 days pt has potassium renal wasting disorder and needs both TRIAMTERENE AND SPIRONOLACTONE- WE ARE STOPPING THE POTASSIUM PILLS 06/07/2023 Not-Taking Spironolactone 25 MG 1 tablet Orally TWICE A DAY; Duration: 90 days 04/05/2023 11/29/2024 Active Micro-K 10 MEQ 2 capsule with food Orally ONCE A DAY; Duration: 90 days changed the kdur/ kcl ER to micro k for size issue. 06/14/2023 11/29/2024 Active aMILoride HCl 5 MG 1 tablet with food Orally Once a day; Duration: 90 days this replaced the Triamterene and pt is supposed to take the Amiloride along with her potassium and Spironolactone. 06/28/2023 11/29/2024 Active Magnesium 300 MG 1 capsule with a meal Orally Once a day; Duration: 30 days 11/28/2023 11/22/2024 Active Problems Problem Type SNOMED Code ICD Code Onset Dates Problem Status W/U Status Risk Notes Problem Hypomagnesemia (853640082) Hypomagnesemia (E83.42) Active confirmed Vital Signs Blood pressure systolic 182 mm Hg 12/05/19 24 Blood pressure diastolic 101 mm Hg 024 Heart Rate 62 /min 12/05/2023 Respiratory Rate 18 /min 12/05/2023 Temperature 97.9 degrees Fahrenheit 12/05/19 Oximetry 98 % 12/05/2023 Weight 196 lbs 12/05/2023 Weight-kg 88.9 kg 12/05/2023 Encounters Encounter Location Date Provider Diagnosis [facility] [address] [phone] 12/05/2023 ANUM RAI Chronic hypokalemia E87.6 ; Primary hypertension I10 ; Chronic kidney disease, stage 3a N18.31 ; Diarrhea, unspecified type R19.7 ; Hypomagnesemia E83.42 ; History of stroke Z86.73 ; History of CVA (cerebrovascular accident) Z86.73 and Dysuria R30.0 Assessments Encounter Date Diagnosis (ICD Code) Assessment Notes Treatment Notes Treatment Clinical Notes Section Notes 12/05/2023 Chronic hypokalemia (ICD-10 - E87.6) 12/05/2023 Primary hypertension (ICD-10 - I10) 12/05/2023 Chronic kidney disease, stage 3a (ICD-10 - N18.31) 12/05/2023 Diarrhea, unspecified type (ICD-10 - R19.7) 12/05/2023 Hypomagnesemia (ICD-10 - E83.42) 12/05/2023 History of stroke (ICD-10 - Z86.73) 12/05/2023 History of CVA (cerebrovascular accident) (ICD-10 - Z86.73) 12/05/2023 Dysuria (ICD-10 - R30.0) Plan Of Treatment Medication Medication Name Sig Start Date Stop Date Notes Spironolactone 25 MG 1 tablet Orally TWICE A DAY; Duration: 90 days 04/05/2023 11/29/2024 Micro-K 10 MEQ 2 capsule with food Orally ONCE A DAY; Duration: 90 days 06/14/2023 11/29/2024 changed the kdur/ trip l ER to micro k for size issue. aMILoride HCl 5 MG 1 tablet with food Orally Once a day; Duration: 90 days 06/28/2023 11/29/2024 this replaced the Triamterene and pt is supposed to take the Amiloride along with her potassium and Spironolactone. Pending Test Test Name Order Date Osmolality, Serum 12/05/2023 Magnesium, Urine 12/05/2023 Osmolality, Urine 12/05/2023 Urinalysis, Complete 12/05/2023 Urine-spot creatinine 12/05/2023 [id number] 12/05/2023 Magnesium, Serum 12/05/2023 Comp. Metabolic Panel (14) 12/05/2023 Next Appt Details Follow Up: 4 Months,PLEASE S TART TAKING THE MAGNESIUM SUPPLEMENT WHEN YOU CAN ANYWHERE DOSE BETWEEN 250-500MG ONCE DAY. 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 Progress Notes * ADELAIDA RODRIGUEZDOB:1960 (64 yo F)Acc No.[id number]:12/05/2023 Progress Notes Patient: ADELAIDA SANTANA Provider: Margi Rai MD :1960 A ge:63 Y S ex:Female Date:12/05/2023 Address:[address] [place], [place] [phone] Subjective: * Chief Complaints: * * HPI: T ransition of Care: 63 YO WF WITH KNOWN HX OF CKD 3A, HYPOKALEMIA W PICTURE OF BARTER'S SYNDROME, HTN, HX OF STROKE, DYSURIA W UTI'S PRESENTS FOR F/U. She had an ER visit to [facility] for lower back pain during which she recalls being told her potassium was 2.5-2.6. It was discussed she was not on her Amiloride which was resumed and labs checked the following week on the showED POTASSIUM IMPROVED TO 3.4 BUT ALSO LOW MAGNESIUM OF 1.4 FOR WHICH SHE WAS STARTED ON MAG SUPPLEMENTS. PT IS STILL HAVING PAIN WRAPPING AROUND HER SIDES AND SHE DESCRIBES SORNESS- NO FOAMY, BLOOD OR DARK URINE. NOV 27, 2023- S OSM 281 UOSM 501 URINE K+ 3.3 = TTKG(TRANSTUBULAR POTASSIUM GRADIENT OF 5.4) URINE CX- MIXED GENITAL LUCY UA SP GRAV 1.015 PH 7 WBC 4-7 PI FEW, URINE BACT TR NA 140 K 3.4 CL101 BICRB 31 BUN 10 CREAT 1.12 EGFR 49 GLUC 97 S OSM 288 CA 9 PHOS 3.8 MG 1.4 ALB 3.5 TSH 0.83. * Medical History: M edical History Verified. * Surgical History: D enies Past Surgical History. * Hospitalization/Major Diagno stic Procedure: D enies Past Hospitalization. * Family History: N on-Contributory. * Medications: T aking Spironolactone 25 MG Tablet 1 tablet Orally TWICE A DAY , stop date 03/30/2024, Taking Micro-K 10 MEQ Capsule Extended Release 2 capsule with food Orally Twice a day , stop date 06/08/2024, Notes to Pharmacist: changed the kdur/ kcl ER to micro k for size issue., Taking aMILoride HCl 5 MG Tablet 1 tablet with food Orally Once a day , stop date 11/17/2024, Notes to Pharmacist: this replaced the Triamterene and pt is supposed to take the Amiloride along with her potassium and Spironolactone., Taking Magnesium 300 MG Capsule 1 capsule with a meal Orally Once a day , stop date 11/22/2024, Not-Taking Triamterene 50 MG Capsule 1 capsule Orally Once a day , Notes to Pharmacist: pt has potassium renal wasting disorder and needs both TRIAMTERENE AND SPIRONOLACTONE- WE ARE STOPPING THE POTASSIUM PILLS, Medication List reviewed and reconciled with the patient * Allergies: S ulfacet-R. Objective: * Vitals: B P:182/101mm Hg, HR:62/min, RR:18/min, Temp:97.9F, Oxygen sat %:98%, Wt:196lbs, Wt-k.9 kg. Assessment: * Assessment: 1. C hronic hypokalemia - E87.6 (Primary) 2 . P rimary hypertension - I10? 3. C hronic kidney disease, stage 3a - N18.31 4 . D iarrhea, unspecified type - R19.7 5 . H ypomagnesemia - E83.42 6 . H istory of stroke - Z86.73 7 . H istory of CVA (cerebrovascular accident) - Z86.73 8 . D ysuria - R30.0 Plan: * Treatment: 2. C hronic kidney disease, stage 3a L AB: Urinalysis, Complete L AB: Urine-spot creatinine L AB: DRBAS-QNXOSUP-LXDS/RANDOM 3. H ypomagnesemia L AB: Magnesium, Urine 4. O thers Refill Spironolactone Tablet, 25 MG, 1 tablet, Orally, TWICE A DAY, 90 days, 180, Refills 3; R efill Micro-K Capsule Extended Release, 10 MEQ, 2 capsule with food, Orally, ONCE A DAY, 90 days, 180 Capsule, Refills 3, Notes to Pharmacist: changed the kdur/ kcl ER to micro k for size issue.; R efill aMILoride HCl Tablet, 5 MG, 1 tablet with food, Orally, Once a day, 90 days, 90, Refills 3, Notes to Pharmacist: this replaced the Triamterene and pt is supposed to take the Amiloride along with her potassium and Spironolactone.. * Follow Up: 4 Months,PLEASE START TAKING THE MAGNESIUM SUPPLEMENT WHEN YOU CAN ANYWHERE DOSE BETWEEN 250-500MG ONCE DAY. GO FOR LABS AFTER YOU ARE ON THIS AT LEAST 1-2 WEEKS.,WHEN YOU TAKE THE MAGNESIUM TRY EVERY OTHER DAY B/C YOU ALREADY HAVE LOOSE STOOLS. 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 * Procedure Codes: * Electronic signature of JENA RAI MD on 11/16/2024 at 04:46 PM CDT Sign off status: Pending * Provider: Margi Rai MD Date: 12/05/2023 Generated for Linda carreon/Malik/Irena on: 11/16/2024 04:46 PM CDT
--- OUTSIDE RECORDS SUMMARY | 2024-03-27 07:45 | XMS_ITS ---
Author Organization [facility] Address [address] [place] [phone] Care Team Providers Care Bridal Stylist Sales Consultant Name Role Phone Rohan Hooker Unavailable Unavailable ANUM RAI Unavailable [phone] Encounters Encounter Location Date Provider Diagnosis [facility] [address] [place] [phone] 03/27/2024 ANUM RAI Plan Of Treatment No Information Progress Notes * ADELAIDA RODRIGUEZDOB:1960 (64 yo F)Acc No.[id number]:03/27/2024 Progress Notes Patient: ADELAIDA SANTANA Provider: Margi Rai MD :1960 A ge:64 Y S ex:Female Date:03/27/2024 Address:[address] [place], [place] [phone] Subjective: * Chief Complaints: * * Medical History: Objective: * Vitals: Assessment: Plan: * Treatment: * Billing Information: * Visit Code: * Procedure Codes: * Electronic signature of JENA RAI MD on 11/16/2024 at 04:46 PM CDT Sign off status: Pending * Provider: Margi Rai MD Date: 0 03/27/2024 Generated for Linda carreon/Malik/eTransmitting on: 0 11/16/2024 04:46 PM CDT
--- OUTSIDE RECORDS SUMMARY | 2024-04-09 04:30 | XMS_ITS ---
Author Organization [facility] Address [address] [place] [id number] Care Team Providers Care Turkish Rubber Name Role Phone Rohan Hooker Unavailable Unavailable PRISCILLA RAIICIA Unavailable [phone] Allergies Allergen (clinical drug ingredient) Drug/Non Drug Allergy documented on EMR Reaction Allergy Type Onset Date Status Sulfacet-R Unknown Drug Allergy Active Medications Medication SIG (Take, Route, Frequency, Duration) Notes Start Date End Date Status Lisinopril 10 MG 1 tablet Orally Once a day; Duration: 30 days 04/09/2024 Active Spironolactone 25 MG 1 tablet Orally TWICE A DAY; Duration: 90 days 04/05/2023 11/29/2024 Active aMILoride HCl 5 MG 1 tablet with food Orally Once a day; Duration: 90 days this replaced the Triamterene and pt is supposed to take the Amiloride along with her potassium and Spironolactone. 06/28/2023 11/29/2024 Active Micro-K 10 MEQ 2 capsule with food Orally ONCE A DAY; Duration: 90 days changed the kdur/ kcl ER to micro k for size issue. 06/14/2023 11/29/2024 Active Triamterene 50 MG 1 capsule Orally Once a day; Duration: 30 days pt has potassium renal wasting disorder and needs both TRIAMTERENE AND SPIRONOLACTONE- WE ARE STOPPING THE POTASSIUM PILLS 06/07/2023 Not-Taking Magnesium 300 MG 1 capsule with a meal Orally Once a day; Duration: 30 days 11/28/2023 11/22/2024 Active Vital Signs Blood pressure systolic 162 mm Hg 04/09/19 25 Blood pressure diastolic 99 mm Hg 025 Heart Rate 69 /min 04/09/2024 Respiratory Rate 18 /min 04/09/2024 Temperature 97.9 degrees Fahrenheit 04/09/19 25 Oximetry 98 % 04/09/2024 Weight 203 lbs 04/09/2024 Weight-kg 92.08 kg 04/09/2024 Encounters Encounter Location Date Provider Diagnosis [facility] [address] [id number] 04/09/2024 ANUM FREDI Chronic hypokalemia E87.6 ; Primary hypertension I10 ; Chronic kidney disease, stage 3a N18.31 ; Diarrhea, unspecified type R19.7 ; Hypomagnesemia E83.42 ; History of stroke Z86.73 ; History of CVA (cerebrovascular accident) Z86.73 and Dysuria R30.0 Assessments Encounter Date Diagnosis (ICD Code) Assessment Notes Treatment Notes Treatment Clinical Notes Section Notes 04/09/2024 Chronic hypokalemia (ICD-10 - E87.6) 04/09/2024 Primary hypertension (ICD-10 - I10) 04/09/2024 Chronic kidney disease, stage 3a (ICD-10 - N18.31) 04/09/2024 Diarrhea, unspecified type (ICD-10 - R19.7) 04/09/2024 Hypomagnesemia (ICD-10 - E83.42) 04/09/2024 History of stroke (ICD-10 - Z86.73) 04/09/2024 History of CVA (cerebrovascular accident) (ICD-10 - Z86.73) 04/09/2024 Dysuria (ICD-10 - R30.0) Plan Of Treatment Medication Medication Name Sig Start Date Stop Date Notes Lisinopril 10 MG 1 tablet Orally Once a day; Duration: 30 days 04/09/2024 Pending Test Test Name Order Date Osmolality, Serum 04/09/2024 Potassium, Urine 04/09/2024 Osmolality, Urine 04/09/2024 Comp. Metabolic Panel (14) 04/09/2024 Next Appt Details Follow Up: 6 Months,your BLO OD PRESSURE IS STILL TOO HIGH. I AM STARTING YOU ON LISINOPRIL AND THIS MAY HELP TO LOWER YOUR POTASSIUM REPLACEMENT DOSE., Reason: PLEASE DO LABS IN 10 TO [address] TO [address] RAI CELL [phone] Progress Notes * BRYAN RODRIGUEZ:1960 (64 yo F)Acc No.[id number]:04/09/2024 Progress Notes Patient: ADELAIDA SANTANA Provider: Margi Rai MD :1960 A ge:64 Y S ex:Female Date:04/09/2024 Address:[address] [place] [address] [id number] Subjective: * Chief Complaints: * * HPI: T ransition of Care: 64 YO WF WITH KNOWN HX OF CKD 3A, HYPOKALEMIA W PICTURE OF BARTER'S SYNDROME, HTN, HX OF STROKE, DYSURIA W UTI'S PRESENTS FOR F/U. She had an ER visit to [facility] for lower back pain during which she [...] SORNESS- NO FOAMY, BLOOD OR DARK URINE. MARCH 29, 2024 UA SP GRAV 1.020 PH 6 O/W NEG URINE PROT/CREAT RATIO 390MG NA 139 K 4.4 CL 104 BICRB 26 BUN 15 CREAT 1.01 EGFR 55 GLUC 90 S OSM 288 CA 9.4 MG 1.8 T LEONIDAS 0.9 AST 16 ALT 19 ALB 4.1 ALK PHOS 153 NOV 27, 2023- S OSM 281 UOSM [...] stic Procedure: D enies Past Hospitalization. * Medications: T aking Magnesium 300 MG Capsule 1 capsule with a meal Orally Once a day , stop date 11/22/2024, Taking Spironolactone 25 MG Tablet 1 tablet Orally TWICE A DAY , stop date 11/29/2024, Taking Micro-K 10 MEQ Capsule Extended Release 2 capsule with food Orally ONCE A DAY , stop date 11/29/2024, Notes to Pharmacist: changed the kdur/ kcl ER to micro k for size issue., Taking aMILoride HCl 5 MG Tablet 1 tablet with food Orally Once a day , stop date 11/29/2024, Notes to Pharmacist: this replaced the Triamterene and pt is supposed to take the Amiloride along with her potassium and Spironolactone., Not-Taking Triamterene 50 MG Capsule 1 capsule Orally Once a day , Notes to Pharmacist: pt has potassium renal wasting disorder and needs both TRIAMTERENE AND SPIRONOLACTONE- WE ARE STOPPING THE POTASSIUM PILLS, Medication List reviewed and reconciled with the patient * Allergies: S ulfacet-R. Objective: * Vitals: B P:162/99mm Hg, HR:69/min, RR:18/min, Temp:97.9F, Oxygen sat %:98%, Wt:203lbs, Wt-k.08 kg. Assessment: * Assessment: 1. C hronic [...] ysuria - R30.0 Plan: * Treatment: 2. P rimary hypertension L AB: Osmolality, Serum L AB: Potassium, Urine L AB: Osmolality, Urine L AB: Comp. Metabolic Panel (14) 3. O thers Start Lisinopril Tablet, 10 MG, 1 tablet, Orally, Once a day, 30 days, 30, Refills 11. * Follow Up: 6 Months,your BLOOD PRESSURE IS STILL TOO HIGH. I AM STARTING YOU ON LISINOPRIL AND THIS MAY HELP TO LOWER YOUR POTASSIUM REPLACEMENT DOSE. (Reason: PLEASE DO LABS IN 10 TO 14 DA[address] TO CHECK [address] RAI CELL [phone]) * Billing Information: * Visit Code: * Procedure Codes: * Electronic signature of JENA RAI MD on 11/16/2024 at 04:46 PM CDT Sign off status: Pending * Provider: Margi Rai MD Date: 0 04/09/2024 Generated for Linda carreon/Malik/Irena on: 0 11/16/2024 04:46 PM CDT
--- OUTSIDE RECORDS SUMMARY | 2024-09-23 08:15 | XMS_ITS ---
Author Organization [facility] Address [address] [place] [phone] Care Team Providers Care Branch Chief Name Role Phone Rohan Hooker Unavailable Unavailable ANUM RAI Unavailable [phone] Encounters Encounter Location Date Provider Diagnosis [facility] [address] [place] [phone] 09/23/2024 ANUM RAI Plan Of Treatment No Information Progress Notes * ADELAIDA RODRIGUEZDOB:1960 (64 yo F)Acc No.[id number]:09/23/2024 Progress Notes Patient: ADELAIDA SANTANA Provider: Margi Rai MD :1960 A ge:64 Y S ex:Female Date:09/23/2024 Address:[address] [place], [place] [id number] Subjective: * Chief Complaints: * * Medical History: Objective: * Vitals: Assessment: Plan: * Treatment: * Billing Information: * Visit Code: * Procedure Codes: * Electronic signature of JENA RAI MD on 11/16/2024 at 04:46 PM CDT Sign off status: Pending * Provider: Margi Rai MD Date: 0 09/23/2024 Generated for Linda carreon/Malik/eTransmitting on: 11/16/2024 04:46 PM CDT
--- NOTE | ~2024-11-16 | XR_ITS ---
XR lumbar spine 2-3V Indication: pain after fall Comparison: None Findings: Moderate loss of vertebral height throughout grade 1 retrolisthesis L2 on L3, no fracture is identified. Severe loss of disc height throughout. Soft tissues demonstrate a large probable gallstone 2 x 2 centimeters. Impression: No acute abnormality. Reviewed, dictated and finalized at location A. Impression: No acute abnormality.
--- NOTE | ~2024-11-16 | XR_ITS ---
RIGHT XR hip LT 2V w AP pelvis Indication: pain after fall 2 WEEKS AGO Comparison: None Technique: 3 view. Findings: No acute fracture or malalignment. No significant degenerative changes. Soft tissues are unremarkable. Impression: No acute fracture or malalignment. Reviewed, dictated and finalized at location A. Impression: No acute fracture or malalignment.
[2024-11-16 16:37] VITALS: BP 149/81; PULSE 62; RESP 18; TEMP 36.9; O2SAT 100
--- OUTSIDE RECORDS SUMMARY | 2024-11-16 16:46 | XMS_ITS | Patient Health Record ---
Author Organization [facility] Address [address] [place] [phone] Care Team Providers Care Diaper Machine Tender Name Role Phone Rohan Hooker Unavailable Unavailable FREDI ANUM Unavailable [phone] Allergies Allergen (clinical drug ingredient) Drug/Non Drug Allergy documented on EMR Reaction Allergy Type Onset Date Status Sulfacet-R Unknown Drug Allergy Active Reason For Referral No Information Medications Medication SIG (Take, Route, Frequency, Duration) Notes Start Date End Date Status Spironolactone 25 MG 1 tablet Orally TWICE A DAY; Duration: 90 days 04/05/2023 11/29/2024 Active Magnesium 300 MG 1 capsule with a meal Orally Once a day; Duration: 30 days 11/28/2023 11/22/2024 Active aMILoride HCl 5 MG 1 tablet [...] ARE STOPPING THE POTASSIUM PILLS 06/07/2023 Not-Taking Lisinopril 10 MG 1 tablet Orally Once a day; Duration: 30 days 04/09/2024 Active Lisinopril 10 MG 1 tablet Orally Once a day; Duration: 30 days 04/09/2024 Active Problems Problem Type SNOMED Code ICD Code Onset Dates Problem Status W/U Status Risk Notes Problem Hypomagnesemia (339282672) Hypomagnesemia (E83.42) Active confirmed Problem Dysuria (83618048) Dysuria (R30.0) Active confi rmed Problem Chronic kidney disease stage 3A (disorder) (807638754) Chronic kidney disease, stage 3a (N18.31) Active confirmed Problem Primary hypertension (90750313) Primary hypertension (I10) Active confirmed Problem History of cerebrovascular accident (220742703) History of stroke (Z86.73) Active confirmed Problem Chronic hypokalemia (65084639) Chronic hypokalemia (E87.6) Active confirmed Problem Diarrhea (07807832) Diarrhea, unspecified type (R19.7) Active confirmed Problem History of cerebrovascular accident without residual deficits (932373136) History of CVA (cerebrovascular accident) (Z86.73) Active confirmed Vital Signs Heart Rate 69 /min 04/09/2024 Temperature 97.9 degrees Fahrenheit 12/05/2023 Respiratory Rate 18 /min 04/09/2024 Oximetry 98 % 12/05/2023 Blood pressure diastolic 99 mm Hg 04/09/2024 Weight-kg 92.08 kg 04/09/2024 Blood pressure systolic 162 mm Hg 04/09/2024 Weight 203 lbs 04/09/2024 Encounters Encounter Location Date Provider Diagnosis [facility] [address] [id number] 12/05/2023 ANUM RAI Chronic hypokalemia E87.6 ; Primary hypertension I10 ; Chronic kidney disease, stage 3a N18.31 ; Diarrhea, unspecified type R19.7 ; Hypomagnesemia E83.42 ; History of stroke Z86.73 ; History of CVA (cerebrovascular accident) Z86.73 and Dysuria R30.[address] [id number] 11/23/2023 ANUM RAI Hypothyroidism, unspecified E03.9 ; Chronic kidney disease, stage 3a N18.31 ; Primary hypertension I10 ; History of stroke Z86.73 ; Chronic hypokalemia E87.6 ; Diarrhea, unspecified type R19.7 ; History of CVA (cerebrovascular accident) Z86.73 ; Lower abdominal pain R10.30 and Dysuria R30.[address] [facility] [address] [id number] 11/28/2023 [facility] [address] [id number] 04/09/2024 ANUM RAI Chronic hypokalemia E87.6 ; Primary hypertension I10 ; Chronic kidney disease, stage 3a N18.31 ; Diarrhea, unspecified type R19.7 ; Hypomagnesemia E83.42 ; History of stroke Z86.73 ; History of CVA (cerebrovascular accident) Z86.73 and Dysuria R30.0 Assessments Encounter Date Diagnosis (ICD Code) Assessment Notes Treatment Notes Treatment Clinical Notes Section Notes 11/23/2023 Hypothyroidism, unspecified (ICD-10 - E03.9) 12/05/2023 Chronic hypokalemia (ICD-10 - E87.6) 04/09/2024 Chronic hypokalemia (ICD-10 - E87.6) 04/09/2024 Primary hypertension (ICD-10 - I10) 12/05/2023 Primary hypertension (ICD-10 - I10) 11/23/2023 Chronic kidney disease, stage 3a (ICD-10 - N18.31) 11/23/2023 Primary hypertension (ICD-10 - I10) 12/05/2023 Chronic kidney disease, stage 3a (ICD-10 - N18.31) 04/09/2024 Chronic kidney disease, stage 3a (ICD-10 - N18.31) 04/09/2024 Diarrhea, unspecified type (ICD-10 - R19.7) 11/23/2023 History of stroke (ICD-10 - Z86.73) 12/05/2023 Diarrhea, unspecified type (ICD-10 - R19.7) 12/05/2023 Hypomagnesemia (ICD-10 - E83.42) 11/23/2023 Chronic hypokalemia (ICD-10 - E87.6) 04/09/2024 Hypomagnesemia (ICD-10 - E83.42) 04/09/2024 History of stroke (ICD-10 - Z86.73) 11/23/2023 Diarrhea, unspecified type (ICD-10 - R19.7) 12/05/2023 History of stroke (ICD-10 - Z86.73) 12/05/2023 History of CVA (cerebrovascular accident) (ICD-10 - Z86.73) 11/23/2023 History of CVA (cerebrovascular accident) (ICD-10 - Z86.73) 04/09/2024 History of CVA (cerebrovascular accident) (ICD-10 - Z86.73) 04/09/2024 Dysuria (ICD-10 - R30.0) 11/23/2023 Lower abdominal pain (ICD-10 - R10.30) 12/05/2023 Dysuria (ICD-10 - R30.0) 11/23/2023 Dysuria (ICD-10 - R30.0) Plan Of Treatment Pending Test Test Name Order Date Magnesium, Serum 04/05/2023 Osmolality, Serum 04/05/2023 Osmolality, Serum 12/05/2023 Osmolality, Serum 11/23/2023 Osmolality, Serum 07/17/2023 Potassium, Urine 07/17/2023 Magnesium, Urine 12/05/2023 Osmolality, Urine 12/05/2023 Osmolality, Urine 07/17/2023 Urinalysis, Complete 07/16/2023 Urinalysis, Complete 12/05/2023 Urinalysis, Complete 11/23/2023 Urinalysis, Complete 04/05/2023 Urinalysis, Complete 07/17/2023 Urine Culture, Routine 04/05/2023 Urine Culture, Routine 07/16/2023 Comp. Metabolic Panel (14) 07/17/2023 Renal Panel (10) 04/05/2023 Renal Panel (10) 07/16/2023 CT ABDOMEN W CONTRAST 04/05/2023 Urine Culture and Sensitivity 11/23/2023 Urine Culture and Sensitivity 07/17/2023 Urine-spot creatinine 12/05/2023 [id number] 12/05/2023 Magnesium, Serum 11/23/2023 Renal Panel (10) 11/23/2023 Magnesium, Serum 12/05/2023 Chloride, Urine 11/23/2023 Magnesium, Urine 11/23/2023 Osmolality, Urine 11/23/2023 T4 and TSH 11/23/2023 Comp. Metabolic Panel (14) 12/05/2023 urine-spot potassium 11/23/2023 Urine-spot creatinine 11/23/2023 Future Test Test Name Order Date Basic Metabolic Panel (8) 06/14/2023 Basic Metabolic Panel (8) 06/21/2023 Phosphorus, Serum 06/28/2023 Cortisol 06/28/2023 Basic Metabolic Panel (8) 06/28/2023 Renal Panel (10) 06/28/2023 Insurance Providers Payer Name Payer Address Payer Phone Subscriber Number Group Number Insured Name Patient Relationship to Insured Coverage Start Date Coverage End Date [employer] [address] [address] [place] [address] [id number] ADELAIDA RODRIGUEZ Self - patient is the insured [place] of [place] [address] [address] [place], [place] [id number] ADELAIDA RODRIGUEZ Self - patient is the insured
--- OUTSIDE RECORDS SUMMARY | 2024-11-16 16:47 | XMS_ITS | Clinical Summary ---
Author Organization [facility] Address [address] [place] [address] Care Team Providers Care Welding Machine Assembler Name Role Phone Javad Wellington Primary Care Provider +1- [phone] Allergies Active Allergy Reactions Criticality Noted Date [...] on file Legal Sex Female 2:06 PM BUSHING AND BROACH OPERATOR Gender Identity Not on file Sexual Orientation Not on file Obstetrics History Last Filed Vital Signs Vital Sign Reading Time Taken Comments Blood Pressure 182/88 03/25/2024 6:22 PM BUSHING AND BROACH OPERATOR Pulse 67 03/25/2024 6:22 PM BUSHING AND BROACH OPERATOR Temperature 36.5 C (97.7 F) 03/25/2024 2:43 PM BUSHING AND BROACH OPERATOR Respiratory Rate 17 03/25/2024 6:22 PM BUSHING AND BROACH OPERATOR Oxygen Saturation 99% 03/25/2024 6:22 PM BUSHING AND BROACH OPERATOR Inhaled Oxygen Concentration - - Weight 90.7 kg (200 lb) 03/25/2024 12:30 PM BUSHING AND BROACH OPERATOR Height 167.6 cm (5' 6) 03/25/2024 12:30 PM BUSHING AND BROACH OPERATOR Body Mass Index 32.28 03/25/2024 12:30 PM BUSHING AND BROACH OPERATOR Plan of Treatment Health Maintenance Due Date Last Done Comments Breast Cancer Screening-Mammogram 1960 Colon Cancer Screening-Colonoscopy 1960 Depression Screening 1958 Fall Risk Assessment 1960 Hepatitis C Screening 1960 Osteoporosis Screening-Bone Density Scan 1960 Hepatitis B Screening 02/08/1976 Pneumococcal vaccine 65+ (1 of 1 - PCV) 02/08/2008 Zoster Vaccine (1 of 2) 02/08/2008 Well Visit 65+ 2023 Influenza Vaccine (#1) 2024 DTaP/Tdap/Td Vaccine (2 - Td or Tdap) 03/25/2034 Insurance MEDICARE [facility] CHOICE PLUS [employer] CHOICE MEDICARE Care Teams Welding Machine Assembler Relationship Specialty Start Date End Date Javad Wellington DO PCP - General 07/27/08
--- NOTE | 2024-11-16 16:54 | ED.GENADULT ---
HPI - General Adult General Chief complaint: Fall Stated complaint: fall; back pain Time Seen by Provider: 11/16/24 16:47 History of Present Illness HPI narrative: aFrida is a 64F with a PMH Of a CVA w/ left sided weakness, HTN, that presented to the ED with left hip pain. She fell a week ago and has had pain since. She also had a stumble and twist where she had a pop in her hip a few days ago. After this she has had increasing pain and poor coordination. She saw her neurologist 3 days ago and he recommended PT. No other pain or injuries reported. She has only been taking Tylenol for the pain. Related Data Home Medications ?Medication ?Instructions ?Recorded ?Confirmed ?Last Taken ?Type amiloride 5 mg tablet 5 mg PO DAILY 04/15/24 11/12/24 Unknown History spironolactone 25 mg tablet 25 mg PO BID 04/15/24 11/12/24 Unknown History Allergies Allergy/AdvReac Type Severity Reaction Status Date / Time Sulfa (Sulfonamide Allergy Severe REACTION Verified 11/16/24 16:49 Antibiotics) CHILD----SEVERE SWELLING AND RASH sulfanilamide Allergy Mild Swelling Verified 11/16/24 16:49 latex AdvReac Intermediate BLISTERS Verified 11/16/24 16:49 UPON CONTACT Sulfonamides Allergy Intermediate anaphylaxis Uncoded 11/16/24 16:49 Review of Systems Review of Systems: All systems reviewed & are unremarkable except as noted in HPI and below PMFSH Past Medical History Medical History Posttraumatic headache Cerebral infarction Arthritis of shoulder region, left, degenerative Hypokalemia (02/10/13) Picture of Barter's syndrome per Nephrology Rheumatoid arthritis Recurrent ventral hernia with obstruction History of cerebral hemorrhage BMI 37.0-37.9, adult Hypertension Surgical History Surgical History H/O ventral hernia repair 10/20/20 Laparoscopic repair recurrent ventral hernia with 20 x 15 Symbotex mesh S/P knee replacement S/P S/P excision of lipoma H/O umbilical hernia repair Family History Family History Father Diabetes mellitus Mother Macular degeneration Sibling Thyroid disease Grandparent Lung cancer Other Cerebrovascular accident Hypertension Social History Social History Social History: Patient currently lives at home with family. She elects Michael her son to be her surrogate, and wants to be a full code. She does have 2 dogs at home. 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 Gender identity (if verbalized by the patient): Female Sexual Orientation (if Verbalized by the Patient): Straight or Heterosexual Spiritual care concerns: No Agree to blood products: Yes Exam Const: General: cooperative, healthy appearing, comfortable, no acute distress, well developed, alert, awake and Physically active Orientation/consciousness: oriented to person, oriented to place and oriented to time HENMT: Head: normal to inspection, normocephalic and atraumatic Ears: hearing grossly normal bilaterally and external ears normal Face/Nose/Sinus: Normal external nose present Eyes: General: appearance normal, both eyes and all related structures Periorbital: periorbital findings normal Sclera: sclerae normal Pupils: Equal, round and reactive pupils present Neck: Neck: normal visual inspection Chest: Chest palpation & inspection: normal inspection of the chest Resp: Effort & Inspection: normal respiratory effort, able to speak in complete sentences and no respiratory distress Cardio: Jugular venous distension: no JVD Back/Spine/Pelvis: Other: no midline tenderness Skin: General skin exam: normal color and no rashes or lesions noted Neuro: General: oriented to person, oriented to place and oriented to time Cranial nerves: Yes Equal, round and reactive pupils present Other: 4/5 strength in the right leg with flexion but otherwise full strength No facial droop and symmetrical strength in the upper extremities Extrem: General: normal to inspection Course Course Emergency Course: Ordered Toradol and radiographs RIGHT XR hip LT 2V w AP pelvis Indication: pain after fall 2 WEEKS AGO Comparison: None Technique: 3 view. Findings: No acute fracture or malalignment. No significant degenerative changes. Soft tissues are unremarkable. Impression: No acute fracture or malalignment. XR lumbar spine 2-3V Indication: pain after fall Comparison: None Findings: Moderate loss of vertebral height throughout grade 1 retrolisthesis L2 on L3, no fracture is identified. Severe loss of disc height throughout. Soft tissues demonstrate a large probable gallstone 2 x 2 centimeters. Impression: No acute abnormality. Vital Signs Vital signs: Vital Signs Temperature 98.5 F 11/16/24 16:37 Pulse Rate 62 11/16/24 16:37 Respiratory Rate 18 11/16/24 16:37 Blood Pressure 149/81 H 11/16/24 16:37 Pulse Oximetry 100 11/16/24 16:37 Oxygen Delivery Room Air 11/16/24 16:37 Temperature 98.5 F 11/16/24 16:37 Pulse Rate 62 11/16/24 16:37 Respiratory Rate 18 11/16/24 16:37 Blood Pressure 149/81 H 11/16/24 16:37 Pulse Oximetry 100 11/16/24 16:37 Oxygen Delivery Room Air 11/16/24 16:37 Medical Decision Making Vital Signs Vital Signs: Vital Signs Temperature 98.5 F 11/16/24 16:37 Pulse Rate 62 11/16/24 16:37 Respiratory Rate 18 11/16/24 16:37 Blood Pressure 149/81 H 11/16/24 16:37 Pulse Oximetry 100 11/16/24 16:37 Oxygen Delivery Room Air 11/16/24 16:37 Temperature 98.5 F 11/16/24 16:37 Pulse Rate 62 11/16/24 16:37 Respiratory Rate 18 11/16/24 16:37 Blood Pressure 149/81 H 11/16/24 16:37 Pulse Oximetry 100 11/16/24 16:37 Oxygen Delivery Room Air 11/16/24 16:37 Discharge Plan Discharge Clinical Impression: Fall as cause of accidental injury at home as place of occurrence, Contusion of hip Patient Disposition: Home Condition: Stable Instructions: Fall Prevention (ED) Patient Language: Uzbek Prescriptions: New hydrocodone-acetaminophen 5-325 mg tablet 1 tablet PO Q8H PRN (Reason: pain) Qty: 14 0RF No Action amiloride 5 mg tablet 5 mg PO DAILY spironolactone 25 mg tablet 25 mg PO BID lisinopril 20 mg tablet 20 mg PO DAILY Qty: 30 2RF potassium chloride 20 mEq tablet extended release 20 meq PO BID Qty: 30 0RF Follow-up/Referrals: Rohan Bran DO [Primary Care Provider, [facility]]
[2024-11-16] MEDS: KETOROLAC 30 MG/ML VIAL (*BKC) IM (17:08)
[2024-11-16 17:30] VITALS: BP 138/83; PULSE 57; RESP 18; O2SAT 96
== END 2024-11-16 17:32 | disposition home or self-care (01) ==
PROVIDERS: Emergency Provider Family Medicine; PCP Family Medicine
DX: S70.02XA Contusion of left hip, initial encounter (principal); M06.9 Rheumatoid arthritis, unspecified; I10 Essential (primary) hypertension; W19.XXXA Unspecified fall, initial encounter
CPT/HCPCS: 72100; 73502; 96372; 99284; J1885

== ENCOUNTER 2025-03-11 10:28 | Outpatient (CLI) | payer MEDICARE, SELFPAY ==
--- NOTE | ~2025-03-11 | XR_ITS ---
EXAMINATION: XR chest 2V 03/11/2025 10:41 INDICATION: Pneumonia PROCEDURE: 2 view chest COMPARISON: 09/01/2022 FINDINGS: The lungs are clear. The cardiomediastinal silhouette is within normal limits. There are no pleural effusions. There is no pneumothorax suspected. There is a chronic healed proximal right humeral fracture. IMPRESSION: 1: NO ACUTE CARDIOPULMONARY DISEASE. Reviewed, dictated and finalized at location O. [employer]
--- OUTSIDE RECORDS SUMMARY | 2025-03-11 10:41 | XMS_ITS | Clinical Summary ---
Author Organization [facility] Address [address] [place] [address] Care Team Providers Care Accountant Supervisor Name Role Phone Javad Wellington Primary Care Provider [phone] Allergies Active Allergy Reactions Criticality Noted Date [...] on file Legal Sex Female 2:06 PM [employer] Gender Identity Not on file Sexual Orientation Not on file Last Filed Vital Signs Vital Sign Reading Time Taken Comments Blood Pressure 182/88 03/25/2024 6:22 PM [employer] Pulse 67 03/25/2024 6:22 PM [employer] Temperature 36.5 C (97.7 F) 03/25/2024 2:43 PM [employer] Respiratory Rate 17 03/25/2024 6:22 PM [employer] Oxygen Saturation 99% 03/25/2024 6:22 PM [employer] Inhaled Oxygen Concentration - - Weight 90.7 kg (200 lb) 03/25/2024 12:30 PM [employer] Height 167.6 cm (5' 6) 03/25/2024 12:30 PM [employer] Body Mass Index 32.28 03/25/2024 12:30 PM [employer] Plan of Treatment Health Maintenance Due Date [...] (2 - Td or Tdap) 03/25/2034 [id number] CHO[facility] [employer] [facility] Care Teams Accountant Supervisor Relationship Specialty Start Date End Date Javad Wellington DO PCP - General 07/27/08
== END 2025-03-11 10:29 | disposition home or self-care (01) ==
LOC: CHSIMG 10:30
PROVIDERS: PCP Family Medicine; Visit Provider Family Medicine
DX: J18.9 Pneumonia, unspecified organism (principal)
CPT/HCPCS: 71046